=== PATIENT | male | born 1960 | race Caucasian/White ===

== ENCOUNTER 2019-08-15 15:44 | Outpatient (CLI) | payer OTHER, SELFPAY ==
[2019-08-15 16:23] LABS: Blood Urea Nitrogen 11 mg/dL (9-20); Calcium 8.9 mg/dL (8.4-10.2); Carbon Dioxide 35 mmol/L (22-30); Chloride 94 mmol/L (98-107); Estimated Glomerular Filt Rate > 60; Glucose 174 mg/dL (75-110); Potassium 3.6 mmol/L (3.4-5.0); Sodium 136 mmol/L (137-145)
== END 2019-08-15 15:45 | disposition home or self-care (01) ==
LOC: ANHLAB 15:46
PROVIDERS: PCP Family Medicine Adolescent Medicine; Visit Provider Nurse Practitioner Adult Health
DX: I51.9 Heart disease, unspecified (principal)
CPT/HCPCS: 36415; 80048

== ENCOUNTER 2020-02-13 10:36 | Outpatient (CLI) | payer OTHER, SELFPAY ==
[2020-02-13 11:06] LABS: Basophils Percent Auto 0.4 % (0.2-1.2); Eosinophils Absolute Auto 0.1 K/mm3 (0-0.3); Hematocrit 40.7 % (42.0-52.0); Hemoglobin 14.7 g/dL (14.0-18.0); Immature Granulocyte Absolute 0.02 K/mm3 (0.00-0.031); Immature Granulocyte Percent A 0.3 % (0-0.5); Lymphocytes Absolute Auto 1.35 K/mm3 (0.9-3.2); Lymphocytes Percent Auto 19.3 % (18.3-44.2); Mean Corpuscular HGB Conc 36.1 g/dl (32-36); Mean Corpuscular Hemoglobin 42.2 pg (26-34); Mean Platelet Volume 10.4 fl (7.4-10.4); Monocytes Absolute Auto 0.4 K/mm3 (0.1-0.6); Monocytes Percent Auto 5.7 % (2.6-8.5); Neutrophils Absolute Auto 5.1 K/mm3 (1.3-6.7); Neutrophils Percent Auto 73.3 % (45.5-73.1); Platelet Count Result 141 k/mm3 (150-375); Red Blood Count 3.48 M/mm3 (4.6-6.20); Red Cell Distribution Width 16.2 % (11.5-14.5)
[2020-02-13 11:29] LABS: Alanine Aminotransferase 18 U/L (4-50); Albumin Level 3.6 g/dL (3.5-5.1); Alkaline Phosphatase 99 U/L (38-126); Anion Gap 3.99999 mmol/L (8-16); Aspartate Amino Transferase 37 U/L (17-59); Bilirubin,Total 1.3 mg/dL (0.2-1.3); Blood Urea Nitrogen 24 mg/dL (9-20); Calcium 8.9 mg/dL (8.4-10.2); Carbon Dioxide > 40 mmol/L (22-30); Chloride 90 mmol/L (98-107); Cholesterol 124 mg/dL (0-200); Estimated Glomerular Filt Rate 48; Glucose 116 mg/dL (75-110); HDL Direct 43 mg/dL; Potassium 3.6 mmol/L (3.4-5.0); Sodium 134 mmol/L (137-145); Triglycerides 98 mg/dL (<150)
[2020-02-13 11:33] LABS: LDL Cholesterol Direct 58 mg/dL
== END 2020-02-13 10:37 | disposition home or self-care (01) ==
LOC: ANHLAB 10:39
PROVIDERS: PCP Family Medicine Adolescent Medicine; Visit Provider Internal Medicine Cardiovascular Disease
DX: I27.20 Pulmonary hypertension, unspecified (principal); G47.33 Obstructive sleep apnea (adult) (pediatric); Z79.01 Long term (current) use of anticoagulants; Z86.711 Personal history of pulmonary embolism; Z72.89 Other problems related to lifestyle; Z72.0 Tobacco use
CPT/HCPCS: 36415; 80053; 80061; 85025

== ENCOUNTER 2020-02-13 10:59 | Inpatient (IN) | payer OTHER, SELFPAY ==
[2020-02-13] VITALS (11 sets, daily range): BP systolic 90–114; BP diastolic 60–81; PULSE 62–85; RESP 11–22; TEMP 36.1–37; O2SAT 94–100
--- NOTE | ~2020-02-13 | US_ITS ---
US abdomen complete EXAMINATION: US Abdomen Complete INDICATION: Weight loss and nausea PROCEDURE: Realtime High Resolution abdomen ultrasound. COMPARISON: No prior studies for comparison FINDINGS: Gallbladder contains a 5 mm polyp. No definite stones, gallbladder wall thickening or peric holecystic fluid. Common bile duct measures 4 mm. Liver echotexture within normal limits without focal mass. Pancreas not adequately visualized due to bowel gas. Pancreatic tail is obscured by bowel gas. Spleen is unremarkeable. Renal echotexture is within normal limits bilaterally without hydronephrosis, contour deforming mass or renal stone. Right kidney measures 9.6 cm. Left kidney measures 10.5 cm. Visualized aspects of the aorta and IVC are within normal limits. Portal vein is patent. No sonograph ic Lacy's sign indicated by the technologist. IMPRESSION: 1: Gallbladder polyp measuring 5 mm. Reviewed, dictated and finalized at location B.
--- NOTE | ~2020-02-13 | MR_ITS ---
EXAMINATION: MR abdomen wo/w con INDICATION: Weight loss, macrocytosis, concern for hepatocellular carcinoma TECHNIQUE: Coronal SSFSE ARC, WATER:coronal LAVA-FLEX, Coronal 2D FIESTA FatSat, Axial SSFSE BH ARC, Axial 3D DualEcho BH, Axial SSFSE-IR, Axial DWI b=500, Axial 2D FIESTA FatSat, pre and dynamic postco ntrast Axial LAVA ARC, postcontrast Coronal In and Opposed phase LAVA FLEX COMPARISON: CT, 02/15/2020 CONTRAST: Multihance, 18 cc FINDINGS: No suspicious liver lesion is identified. The pancreas and adrenal glands are normal. Stone s are present in the nondistended gallbladder. The kidneys are unremarkable. Multiple subtle T2 hyper intense lesions of the spleen likely reflect granulomatous disease. There are no pathologically enlar ged abdominal lymph nodes. No dilated loops of bowel are evident. There is a large volume of colonic stool. S-shaped curvature of the spine is noted. No abnormal enhancement is present after contrast ad ministration. IMPRESSION: 1. No suspicious liver lesion identified. Reviewed, dictated and finalized at location A.
--- NOTE | ~2020-02-13 | CT_ITS ---
EXAMINATION: CT abdomen pelvis w con DATE: 02/15/2020 14:39 INDICATION: Weight loss. Macrocytosis. TECHNIQUE: Computed tomography (CT) of the abdomen and pelvis was performed with 100 mL Omnipaque 350 intravenous contrast. Automated exposure control and iterative reconstruction technique were employe d. The dose-length product was 876.88 mGy-cm. COMPARISON: Chest CT 01/22/2019, ultrasound 02/14/2020 FINDINGS: The visualized portions of the lung bases demonstrate mild atelectasis. There is mild emphy sema. No pleural effusion. The heart size is normal. No pericardial effusion. The liver is normal. Th e gallbladder is normal in size and contains sludge. There are numerous low-attenuation lesions in th e spleen measuring up to 11 mm. The pancreas and adrenal glands are normal. There is cortical thinnin g of the kidneys. The bladder is distended. There are no dilated loops of bowel. There is a moderate volume of stool in the colon. The appendix is normal. There is mild periportal lymphadenopathy, likel y reactive. There is no free intraperitoneal fluid. There are multiple old healed right rib fractures . There is lumbar levoscoliosis and severe spondylosis. Thoracic dextroscoliosis is noted. IMPRESSION: 1. Numerous splenic lesions measuring up to 11 mm, most likely granulomatous disease. 2. Mild periportal lymphadenopathy, likely reactive. Reviewed, dictated and finalized at location A. IMPRESSION: 1. Numerous splenic lesions measuring up to 11 mm, most likely granulomatous di sease. 2. Mild periportal lymphadenopathy, likely reactive.
--- NOTE | ~2020-02-13 | XR_ITS ---
EXAMINATION: XR chest 2V EXAM DATE: 02/13/2020 12:08 INDICATION: Short of breath and weakness. TECHNIQUE: Frontal and lateral projections of the chest obtained and reviewed. Comparison is made to prior examination from 01/22/2019. FINDINGS: There is mild upper thoracic levoscoliosis, moderate lower thoracic dextroscoliosis. No co nfluent consolidation, pneumothorax or pleural effusion suspected. Cardiac silhouette is stable in si ze compared to prior exam. Old right rib fractures. There is no significant interval change. IMPRESSION: No acute cardiopulmonary findings. Reviewed, dictated and finalized at location A.
--- NOTE | ~2020-02-13 | XR_ITS ---
EXAMINATION: XR orbit foreign body DATE: 02/18/2020 14:04 INDICATION: Orbital foreign body. TECHNIQUE: 4 views of the orbits were obtained. COMPARISON: None. FINDINGS: Bone alignment is normal. No fracture. There is wire fixation of the right orbital floor an d lateral orbital wall. IMPRESSION: 1. Wire fixation of the right orbital floor and lateral orbital wall. Reviewed, dictated and finalized at location A.
--- NOTE | 2020-02-13 11:33 | ECG_ITS ---
Measurements Intervals [place] Rate: 78 P: 63 MS: 156 QRS: 52 QRSD: 86 T: 31 QT: 390 QTc: 445 Interpretive Statements SINUS RHYTHM VENTRICULAR PREMATURE COMPLEX INCOMPLETE RIGHT BUNDLE BRANCH BLOCK BORDERLINE ST-T WAVE ABNORMALITY- DIFFUSE LEADS BASELINE ARTIFACT- V4 BORDERLINE ECG Electronically Signed On 02-13-2020 12:09:01 CDT by Rickey Duong D.O.
--- NOTE | 2020-02-13 12:01 | PC.NURSE ---
unable to obtain IV access, called vascular access - will come to ED to assist.
--- NOTE | 2020-02-13 12:02 | PC.NURSE ---
Pt to XRAY via stretcher.
[2020-02-13 12:07] LABS: Basophils Percent Auto 0.5 % (0.2-1.2); Eosinophils Absolute Auto 0.1 K/mm3 (0-0.3); Eosinophils Percent Auto 1.1 % (0-4.4); Hematocrit 39.8 % (42.0-52.0); Hemoglobin 14.4 g/dL (14.0-18.0); Immature Granulocyte Absolute 0.03 K/mm3 (0.00-0.031); Immature Granulocyte Percent A 0.4 % (0-0.5); Lymphocytes Absolute Auto 1.44 K/mm3 (0.9-3.2); Lymphocytes Percent Auto 19.6 % (18.3-44.2); Mean Corpuscular HGB Conc 36.2 g/dl (32-36); Mean Corpuscular Hemoglobin 41.7 pg (26-34); Mean Corpuscular Volume 115.4 fl (80-100); Mean Platelet Volume 10.1 fl (7.4-10.4); Monocytes Absolute Auto 0.5 K/mm3 (0.1-0.6); Monocytes Percent Auto 6.4 % (2.6-8.5); Neutrophils Absolute Auto 5.3 K/mm3 (1.3-6.7); Platelet Count Result 144 k/mm3 (150-375); Red Blood Count 3.45 M/mm3 (4.6-6.20); Red Cell Distribution Width 16.2 % (11.5-14.5); White Blood Count 7.4 K/mm3 (4.5-10.0)
--- NOTE | 2020-02-13 12:16 | PC.NURSE ---
Pt unable to provide urine sample at this time, pt given urinal and will re attempt.
[2020-02-13 12:18] LABS: Alanine Aminotransferase 18 U/L (4-50); Albumin Level 3.8 g/dL (3.5-5.1); Alkaline Phosphatase 108 U/L (38-126); Anion Gap 6 mmol/L (8-16); Aspartate Amino Transferase 37 U/L (17-59); Bilirubin,Total 1.4 mg/dL (0.2-1.3); Blood Urea Nitrogen 23 mg/dL (9-20); Calcium 9.1 mg/dL (8.4-10.2); Carbon Dioxide 39 mmol/L (22-30); Chloride 90 mmol/L (98-107); Estimated CRCL calculation 42 ml/min; Estimated Glomerular Filt Rate 44; Glucose 117 mg/dL (75-110); Potassium 3.1 mmol/L (3.4-5.0); Sodium 135 mmol/L (137-145)
[2020-02-13 12:24] LABS: Lipase 97 U/L (23-300)
[2020-02-13 12:37] LABS: Troponin I 0.019 ng/mL (0.000-0.034)
--- NOTE | 2020-02-13 12:49 | PC.NURSE ---
Pt unable to urinate, declines straight cath at this time.
[2020-02-13] MEDS: SODIUM CHLORIDE 0.9% IV 1,000 ML 999 ML IV CONT (12:58)
--- NOTE | 2020-02-13 13:20 | ED.GENADULT ---
HPI - General Adult General Chief complaint: Weakness Stated complaint: short of breath on exertion Time Seen by Provider: 02/13/20 12:03 History of Present Illness HPI narrative: Patient is a 59-year-old male who is referred to the ER from the cardiology clinic for weakness. Patient reports progressive decline over the last couple months where when he ambulates he begins to throw up. Denies chest pain or pressure. He is unsure as to why he goes to [facility] and does not think he has had a heart attack before nor does he think he has heart failure. He does report taking water pill though he is unsure what he is actually taking. Reports a 20 to 30 pound weight loss over the last couple months. Today he reports he cannot walk more than 20 feet without extreme exhaustion and vomiting. Symptoms are only helped by sitting. Related Data Home Medications Medication Instructions Recorded Confirmed furosemide 40 mg PO DAILY 02/13/20 02/13/20 methadone 10 mg PO DAILY 02/13/20 02/13/20 metoprolol succinate 25 mg PO DAILY 02/13/20 02/13/20 morphine 30 mg PO BID-TID PRN 02/13/20 02/13/20 pantoprazole 40 mg PO DAILY 02/13/20 02/13/20 potassium chloride 20 meq PO DAILY 02/13/20 02/13/20 rivaroxaban [Xarelto] 10 mg PO DAILY 02/13/20 02/13/20 Allergies Allergy/AdvReac Type Severity Reaction Status Date / Time No Known Allergies Allergy Mild Verified 02/13/20 12:45 Review of Systems Review of Systems: All systems reviewed & are unremarkable except as noted in HPI and below Constitutional: Constitutional: Denies chills, Reports fatigue, Denies fever(s) and Reports weakness ENT: Denies nasal congestion and Denies sore throat Cardiovascular: Cardiovascular: Denies chest pain, Denies rapid heart rate and Denies radiating jaw, neck or arm pain Respiratory: Respiratory: Denies cough, Denies dyspnea and Denies wheezing Gastrointestinal: Gastrointestinal: Denies abdominal pain, Denies diarrhea, Reports nausea and Reports vomiting Neurologic: Denies dizziness, Denies syncope, Denies focal weakness and Denies numbness PMF Past Medical History Medical History (Updated 02/13/20 @ 22:59 by Bernabe Garcia MD) Angiomatosis Benign colon polyp Chronic back pain On long-term opioid therapy. Current use of intermediate anticoagulation Gastroesophageal reflux disease Left leg DVT (~12/2018) Non-STEMI (non-ST elevated myocardial infarction) (~12/2018) Related to submassive pulmonary embolism. Paroxysmal atrial flutter Pulmonary embolism Pulmonary embolism with acute cor pulmonale (~12/2018) Scoliosis Surgical History Surgical History (Updated 02/13/20 @ 19:53 by Sparkle Lares PA-C) History of colonoscopy History of facial surgery Right orbit repair. History of orthopedic surgery Surgical fixation left tib-fib, right foot surgery. Family History Family History Father Heart disease age 68 of heart disease Mother Dementia age 94, had dementia Unknown Heart disease family history of heart disease, kidney disease, and possible pulmonary emboli Social History Social History (Updated 02/13/20 @ 19:55 by Sparkle Lares PA-C) Social History: The patient is single and lives in his own trailer in [place]. He has no children. He is retired, on disability, and used to work in maintenance. He smokes about half a pack of cigarettes per day. At 1 point time he drank 3D 8 alcoholic beverages a day, but for the last several months he has not been drinking much due to feeling poorly. He denies illicit substance use. He designates his friend, Aryan Yañez, as his surrogate decision maker and he wishes to be a full code. Smoking packs per day: 0.75 Smoking cigarettes per day: 15.0 Smoking status: Current every day smoker Tobacco type: cigarettes Alcohol intake: current Drinks per week: 21 Gallegos
[2020-02-13 13:38] LABS: Add Urine Microscopic? YES; Appearance Urine Clear (Clear); Bacteria Urine Trace /hpf; Bilirubin Urine 1+ (Negative); Blood Urine Negative (Negative); Color Urine Amber (Yellow); Glucose Urine UA Negative (Negative); Hyaline Casts Urine 50+ /lpf; Ketones Urine Negative (Negative); Leukocyte Esterase Ur Trace LEU/UL (Negative); Mucus Urine Rare /lpf; Nitrate Urine Negative (Negative); Protein Urine Negative (Negative); RBC Urine 0-2 /hpf (0-2); Specific Grav Ur 1.013 (1.001-1.035); Squamous Epithelial Cell Urine Occasional /hpf (Few)
--- NOTE | 2020-02-13 15:44 | WPDCN ---
Assessment and Plan Assessment and plan (1) Hypotension: Code(s): I95.9 - Hypotension, unspecified Status: Acute Assessment and Plan: BP 90/60 earlier today, likely 2nd nausea and anorexia, dehydration. Hold diuretic. Start IV fluids. (2) Nausea: Code(s): R11.0 - Nausea Status: Acute Assessment and Plan: May be related to the low blood pressure. However the patient has had a 20-30 lb weight loss over the past 4 months so he may have other issues (3) Weight loss: Code(s): R63.4 - Abnormal weight loss Status: Acute Assessment and Plan: 20-30 lb weight loss noted. (4) Abnormal EKG: Code(s): R94.31 - Abnormal electrocardiogram [ECG] [EKG] Status: Acute Assessment and Plan: Some slight ST depression noted anterolaterally. However, this is non-specific and may relate to his right ventricular strain. Slightly elevated troponin of 0.019. However, doubt ACS. (5) Macrocytosis: Code(s): D75.89 - Other specified diseases of blood and blood-forming organs Status: Acute Assessment and Plan: Macrocytic indices, perhaps some liver disease related to his alcohol use or perhaps B12 or folate deficiency. Check B12 and folate levels (6) Acute kidney failure: Code(s): N17.9 - Acute kidney failure, unspecified Status: Acute Assessment and Plan: elevated BUN and creatinine noted. IV fluids. (7) Hypokalemia: Code(s): E87.6 - Hypokalemia Status: Acute Assessment and Plan: Potassium 3.1 and 3.6 today. Will add some potassium to the IV fluids in as with the patient's nausea he may not tolerate p.o.. (8) History of pulmonary embolism: Code(s): Z86.711 - Personal history of pulmonary embolism Status: Acute Assessment and Plan: History of multiple PEs in December 2018, on chronic therapy with Xarelto. Stable. (9) History of atrial flutter: Code(s): Z86.79 - Personal history of other diseases of the circulatory system Status: Acute Assessment and Plan: History of atrial flutter noted in December 2018. Currently in normal sinus rhythm HPI Data of Consult Date/Time: 02/13/20 15:44 Primary Care Provider: Dougie Galaviz MD Consult Narrative Narrative: Date of service: 02/13/2020 Shantanu Melendrez is a 59 year old male Was asked to see at the request of the hospitalist for my advice and opinion regarding his ANDERSON and weakness. The patient Is a vague in tired historian. He has not felt well for a while, perhaps a few months, with weakness, will a 20-30 lb weight loss (209# 4 months ago, 182# today), ANDERSON, poor appetite and nausea. The patient saw Dr. Fonseca in the office today complaining of weakness and presyncope. his blood pressure was 90/54 mmHg.He was to directed to the emergency room and subsequently admitted. The patient says he has sick. When he stands he gets nauseated and dizzy and he has not been able to Stand long enough to shave. He can't walk far because he feels terrible and sick. When he walked 20 ft to the car today he felt terrible with dizziness, lightheadedness, nausea, shortness of breath and he threw up. He has been having lot of nausea and dry heaves as well as anorexia. He had 1 fall a couple months ago and did hit his head with apparently no neurologic sequelae. No PND, orthopnea, chest pain, pressure or tightness, abdominal pain, diarrhea, or bleeding. He does have some chronic ANDERSON but that does not seem to be a big p
--- NOTE | 2020-02-13 16:00 | PM.IMHP ---
H&P: HPI History of Present Illness Date/Time: 02/13/20 16:00. The patient was seen evaluated in the emergency department. Chief complaint: Weakness. Narrative: Shantanu Melendrez is a 59-year-old male smoker with history of submassive pulmonary embolism in December 2018, paroxysmal atrial flutter, GERD, and chronic pain syndrome who presented to the emergency department earlier today for further evaluation of weakness. He had a routine appointment with Dr. Fonseca today and he was directed to the emergency department after the patient complained about significant weakness and exhaustion with minimal ambulation. With further questioning, he admits that a really has not felt well for a couple of months with vague symptoms including poor appetite, unintentional weight loss of nearly 30 lb, progressive weakness, exhaustion with minimal activity, and mild dyspnea on exertion. This morning while walking to his truck he became very nauseated with dry heaves and at that time felt a bit lightheaded. He denies loss of smell and taste, and tells me food just does not sound appealing. With further questioning, he has had some dysphagia with liquids but he denies concerns for aspiration. He has not noticed a change in bowel habits, but has suffered from constipation for many years and he says it is not unusual for him to not have a bowel movement for 1 to 2 weeks. He does have a history of colon polyps but has not had a colonoscopy for several years. He denies blood in mucus in the stool. No lymphadenopathy. No known history of malignancy. He denies exertional chest pain and pleuritic pain. No orthopnea or PND. Review of Systems Review of Systems: Narrative: Twelve systems were reviewed with pertinent positives and negatives as per HPI. No fever, chills, or sweats. He denies cold and flu symptoms. No cough. He has been having hiccups recently, more so than usual. No dysuria or hematuria. Noted change in medication. He denies sick contacts. Except as documented, all other systems were reviewed and are negative. COUNTS INCLUDE 234 BEDS AT THE [facility] Past Medical History Medical History (Updated 02/13/20 @ 20:01 by Sparkle Lares PA-C) Angiomatosis Benign colon polyp Chronic back pain On long-term opioid therapy. Current use of detention anticoagulation Gastroesophageal reflux disease Left leg DVT (~12/2018) Non-STEMI (non-ST elevated myocardial infarction) (~12/2018) Related to submassive pulmonary embolism. Paroxysmal atrial flutter Pulmonary embolism Pulmonary embolism with acute cor pulmonale (~12/2018) Scoliosis Surgical History Surgical History (Updated 02/13/20 @ 19:53 by Sparkle Lares PA-C) History of colonoscopy History of facial surgery Right orbit repair. History of orthopedic surgery Surgical fixation left tib-fib, right foot surgery. Family History Family History Father Heart disease age 68 of heart disease Mother Dementia age 94, had dementia Unknown Heart disease family history of heart disease, kidney disease, and possible pulmonary emboli Social History Social History (Updated 02/13/20 @ 19:55 by Sparkle Lares PA-C) Social History: The patient is single and lives in his own trailer in [place]. He has no children. He is retired, on disability, and used to work in maintenance. He smokes about half a pack of cigarettes per day. At 1 point time he drank 3D 8 alcoholic beverages a day, but for the last several months he has not been drinking much due to feeling poorly. He denies illicit substance use. He designates his friend, Aryan Yañez, as his surrogate decision maker and he wishes to be a full code. Smoking packs per day: 0.75 Smoking cigarettes per day: 15.0 Smoking status: Current every day smoker Tobacco type: cigarettes Gender identity (if verbalized by the patient): Male Meds Home Medications an
--- NOTE | 2020-02-13 16:42 | PC.NURSE ---
called Angi in dietary and ordered food/dinner tray for pt
[2020-02-13] MEDS: KCL 20 MEQ/D5/0.45% SOD CHL 1,000 ML 125 ML IV CONT (18:32)
[2020-02-13 18:59] LABS: Troponin I 0.016 ng/mL (0.000-0.034)
--- NOTE | 2020-02-13 20:44 | ADMGEN ---
This patient, Shantanu Melendrez, was admitted to IMU Room 211-01 at 1952. Patient/family oriented to hospital policies and general routines including ID bracelet, bed and alarms, visiting hours, pain management, procedures, bathroom and other care routines, personal items, smoking policy, room service/diet, and visiting hours. Valuables list has been completed. Information on how to activate the Rapid Response Team has been discussed. Patient/Family are encouraged to report perceived risks to care and to ask questions if they do not understand what they are told or what they should do.
[2020-02-13 20:47] LABS: Creatine Kinase 33 U/L (55-170)
[2020-02-13 20:49] LABS: Anion Gap 3 mmol/L (8-16); Blood Urea Nitrogen 21 mg/dL (9-20); Calcium 8.4 mg/dL (8.4-10.2); Carbon Dioxide 39 mmol/L (22-30); Chloride 92 mmol/L (98-107); Estimated CRCL calculation 48 ml/min; Estimated Glomerular Filt Rate 52; Glucose 109 mg/dL (75-110); Magnesium 1.5 mg/dL (1.6-2.3); Phosphorus 3.2 mg/dL (2.5-4.5); Potassium 2.9 mmol/L (3.4-5.0); Sodium 134 mmol/L (137-145)
[2020-02-13 21:01] LABS: Troponin I 0.016 ng/mL (0.000-0.034)
[2020-02-13 21:55] LABS: Folic Acid 3.3 ng/mL (2.76->20)
[2020-02-14] VITALS (18 sets, daily range): BP systolic 84–114; BP diastolic 57–75; PULSE 55–72; RESP 14–22; TEMP 35.6–36.7; O2SAT 90–100
[2020-02-14] MEDS: KCL 20 MEQ/D5/0.45% SOD CHL 1,000 ML 125 ML IV CONT ×3 (02:45→21:37)
[2020-02-14 04:55] LABS: Potassium 2.9 mmol/L (3.4-5.0)
[2020-02-14 05:00] LABS: Alanine Aminotransferase 14 U/L (4-50); Albumin Level 2.7 g/dL (3.5-5.1); Alkaline Phosphatase 69 U/L (38-126); Anion Gap 2 mmol/L (8-16); Aspartate Amino Transferase 27 U/L (17-59); Bilirubin,Total 0.9 mg/dL (0.2-1.3); Blood Urea Nitrogen 20 mg/dL (9-20); Calcium 8.3 mg/dL (8.4-10.2); Carbon Dioxide 38 mmol/L (22-30); Chloride 95 mmol/L (98-107); Estimated CRCL calculation 55 ml/min; Estimated Glomerular Filt Rate > 60; Glucose 90 mg/dL (75-110); Sodium 135 mmol/L (137-145)
[2020-02-14 08:56] LABS: Hematocrit 30.9 % (42.0-52.0); Hemoglobin 11.2 g/dL (14.0-18.0); Mean Corpuscular HGB Conc 36.2 g/dl (32-36); Mean Corpuscular Hemoglobin 42.9 pg (26-34); Mean Corpuscular Volume 118.4 fl (80-100); Mean Platelet Volume 9.9 fl (7.4-10.4); Platelet Count Result 120 k/mm3 (150-375); Red Blood Count 2.61 M/mm3 (4.6-6.20); White Blood Count 4.3 K/mm3 (4.5-10.0)
--- NOTE | 2020-02-14 09:09 | PM.PNCARD ---
Progress Note: A&P Assessment and Plan (1) Hypotension: Code(s): I95.9 - Hypotension, unspecified Status: Acute Assessment and Plan: Likely 2nd nausea, anorexia, dehydration. Hold diuretic. Continue IV fluids. (2) Nausea: Code(s): R11.0 - Nausea Status: Acute Assessment and Plan: May be related to the low blood pressure. He has had a 20-30 lb weight loss over the past 4 months so he may have other issues. Seen by Dr. Luke. EGD planned for today. (3) Weight loss: Code(s): R63.4 - Abnormal weight loss Status: Acute Assessment and Plan: 20-30 lb weight loss noted. (4) Abnormal EKG: Code(s): R94.31 - Abnormal electrocardiogram [ECG] [EKG] Status: Acute Assessment and Plan: Some slight ST depression noted anterolaterally. However, this is non-specific and may relate to his right ventricular strain. Troponin 0.019, 0.016, 0.016. No evidence of ACS. No ischemic symptoms. (5) Macrocytosis: Code(s): D75.89 - Other specified diseases of blood and blood-forming organs Status: Acute Assessment and Plan: Macrocytic indices, perhaps some liver disease related to his alcohol use or perhaps B12 or folate deficiency. B12 and folate levels are within normal limits. (6) Acute kidney failure: Code(s): N17.9 - Acute kidney failure, unspecified Status: Acute Assessment and Plan: elevated BUN and creatinine noted. Continue IV fluids. (7) Hypokalemia: Code(s): E87.6 - Hypokalemia Status: Acute Assessment and Plan: IV fluids with 20 mEq of potassium at 125 cc/hour. Potassium 2.9 this morning. Will give him a 40 mEq potassium rider. Magnesium 1.5. Will give 3 g of Magnesium as well. (8) History of pulmonary embolism: Code(s): Z86.711 - Personal history of pulmonary embolism Status: Acute Assessment and Plan: History of multiple PEs in December 2018, on chronic therapy with Xarelto. Stable. Restart Xarelto this evening. Did not get a dose yesterday evening. (9) History of atrial flutter: Code(s): Z86.79 - Personal history of other diseases of the circulatory system Status: Acute Assessment and Plan: History of atrial flutter noted in December 2018. Currently in normal sinus rhythm Additional Plan No further cardiac recommendations. Will follow-up p.r.n.. Plan discussed with Dr. Castro 0920 02/14/2020 Subjective Date/time seen: 02/14/20 09:09 Interval history: Follow-up for: Hypotension, nausea, weight, abnormal EKG, PANDA, hypokalemia, hypomagnesemia, history of atrial flutter, history of pulmonary embolus Date of service: 02/14/2020 Subjective: Denied chest discomfort, shortness of breath or lightheadedness. No abdominal pain or vomiting. No nausea at this time. Review of Systems Constitutional: Constitutional: Reports difficulty sleeping, Reports fatigue, Reports lethargy and Reports weakness Eyes: Eyes: Denies blurry vision ENT: Denies dysphagia, Denies epistaxis and Denies nasal congestion Cardiovascular: Cardiovascular: Denies chest pain, Denies leg edema ( Resolved), Denies palpitations and Reports dyspnea on exertion Respiratory: Respiratory: Denies hemoptysis, Reports dyspnea on exertion and Reports wheezing ( occasional wheezes) Gastrointestinal: Gastrointestinal: Denies abdominal pain, Denies melena, Denies hematochezia, Denies dysphagia, Denies diarrhea, Reports nausea ( With any movement) and Denies vomiting Gen
[2020-02-14] MEDS: MAGNESIUM SULFATE 3GM/D5W100ML 3 GM/100 ML BAG IVPB (09:33)
--- NOTE | 2020-02-14 11:33 | WPDGICN ---
Assessment and Plan Assessment and plan (1) Nausea: Code(s): R11.0 - Nausea Status: Acute Assessment and Plan: nausea with weight loss. Will assess today with EGD, assess if malignancy, ulcers, etc. Also noted low platelets and macrocytosis, I wonder if he could have liver disease given alcohol intake. (2) Weight loss: Code(s): R63.4 - Abnormal weight loss Status: Acute Assessment and Plan: will do EGD, at some point will need abdominal imaging and also colonoscopy specially if egd no major findings. (3) Hypotension: Code(s): I95.9 - Hypotension, unspecified Status: Acute Assessment and Plan: he had dehydration due to poor intake (4) Hypokalemia: Code(s): E87.6 - Hypokalemia Status: Acute Assessment and Plan: treated (5) History of pulmonary embolism: Code(s): Z86.711 - Personal history of pulmonary embolism Status: Acute Assessment and Plan: on blood thinners (6) Thrombocytopenia: Code(s): D69.6 - Thrombocytopenia, unspecified Status: Acute Assessment and Plan: I wonder if he may have liver disease even cirrhosis, also macrocytosis will get liver ultrasound but also may need CT abd/pelvis because weight loss to assess pancrease, liver, etc (7) Macrocytic anemia: Code(s): D53.9 - Nutritional anemia, unspecified Status: Acute (8) Alcohol abuse: Code(s): F10.10 - Alcohol abuse, uncomplicated Status: Acute Assessment and Plan: thiamine, monitor GI Consult Note Consult date/time: 02/14/20 11:33 Reason for consult: weight loss, n/v HPI: Shantanu Melendrez is a 59 year old male with history of submassive pulmonary embolism in December 2018 on xarelto, paroxysmal atrial flutter, GERD, and chronic pain syndrome on methadone and morphine prn who came to see his borematic operator in the office but he mentioned that for few weeks has been not eating much because nausea and dry heaves, sometimes with vomiting, he also has lost about 30 pounds and just feeling weak. His doctor instructed him to come to hospital and he was admitted. He had a colonoscopy about 10 years ago, no EGD. When he was evaluated by his borematic operator his blood pressure was 90/54 mmHg. Hb 11.2 (14 previously), platelets 120 (previously also low), albumin 2.7, transaminases normal. He also has history of drinking up to 8 daily but last few months not much because feeling poorly. He also has chronic constipation but using narcotics. Review of Systems Constitutional: Constitutional: Reports fatigue, Reports lethargy, Reports poor appetite and Reports weight loss Eyes: Eyes: Denies blurry vision ENT: Reports Normal hearing present, Denies headache(s) and Denies neck pain Cardiovascular: Cardiovascular: Denies chest pain and Denies dyspnea Respiratory: Respiratory: Denies dyspnea Gastrointestinal: Gastrointestinal: Reports constipation, Reports nausea and Reports vomiting Genitourinary: Genitourinary: Denies dysuria Musculoskeletal: Musculoskeletal: Denies neck pain Integumentary/Breasts: Skin/Breast: Denies dry skin Neurologic: Reports Normal hearing present, Denies headache(s) and Denies weakness Psychiatric: Psychiatric: Denies anxiety Endocrine: Endocrine: Denies change in body appearance Hematologic/Lymphatic: Comments: on blood thinners Allergic/Immunologic: Allergic/Immunologic: Denies urticaria PMFSH Past Medical History Medical History (Updated 02/14/20 @ 12:21 by Ad Luke MD) Alcohol abuse Angiomatosis Benign colon polyp Chronic back pain On long-term opioid therapy. Current use of [facility] anticoagulation Gastroesophageal reflux disease Left leg DVT (~12/2018) Macrocytic anemia Non-STEMI (non-ST elevated myocardial infarction) (~12/2018) Related to submassive pulmonary embolism. Paroxysmal atrial flutter Pulmonary embolism Pulmonary embolism with acute cor pulmonale (~12/2018
[2020-02-14] MEDS: LACTATED RINGERS 1,000 ML 150 ML IV CONT (11:50)
--- NOTE | 2020-02-14 11:51 | WPDANESEPPF ---
Anes - Initial Pre Proc Eval Procedure: Operation Date: 02/14/20 12:00 Proposed Procedures p Esophagogastroduodenoscopy - Ad Luke MD Date/Time: 02/14/20 11:51 Surgeon: Kavon Alvarado MD Pre Op Diagnosis: Weakness. Patient Data Age: 59 Gender: M Height: 5 ft 7 in Weight: 83.5 kg Last Vital Signs Temp 96.8 F L 02/14/20 11:49 Pulse 57 L 02/14/20 11:49 Resp 18 02/14/20 11:49 BP 114/75 02/14/20 11:49 Pulse Ox 97 02/14/20 11:49 Allergies Allergy/AdvReac Type Severity Reaction Status Date / Time No Known Allergies Allergy Mild Verified 02/13/20 12:45 Home Medications Medication Instructions Recorded Confirmed Type furosemide 40 mg PO DAILY 02/13/20 02/13/20 History methadone 10 mg PO DAILY 02/13/20 02/13/20 History metoprolol succinate 25 mg PO DAILY 02/13/20 02/13/20 History morphine 30 mg PO BID-TID PRN 02/13/20 02/13/20 History pantoprazole 40 mg PO DAILY 02/13/20 02/13/20 History potassium chloride 20 meq PO DAILY 02/13/20 02/13/20 History rivaroxaban [Xarelto] 10 mg PO DAILY 02/13/20 02/13/20 History Laboratory Tests 02/13/20 02/13/20 02/13/20 10:46 11:57 11:57 WBC 7.4 K/mm3 K/mm3 (4.5-10.0) RBC 3.45 M/mm3 L M/mm3 (4.6-6.20) Hgb 14.4 g/dL g/dL (14.0-18.0) Hct 39.8 % L % (42.0-52.0) MCV 115.4 fl H fl (80-100) MCH 41.7 pg H pg (26-34) MCHC 36.2 g/dl H g/dl (32-36) RDW 16.2 % H % (11.5-14.5) Plt Count 144 k/mm3 L k/mm3 (150-375) MPV 10.1 fl fl (7.4-10.4) Immature Gran % (Auto) 0.4 % % (0-0.5) Neut % (Auto) 72.0 % % (45.5-73.1) Lymph % (Auto) 19.6 % % (18.3-44.2) [place] % (Auto) 6.4 % % (2.6-8.5) Eos % (Auto) 1.1 % % (0-4.4) Baso % (Auto) 0.5 % % (0.2-1.2) Lymph # (Auto) 1.44 K/mm3 K/mm3 (0.9-3.2) [place] # (Auto) 0.5 K/mm3 K/mm3 (0.1-0.6) Eos # (Auto) 0.1 K/mm3 K/mm3 (0-0.3) Baso # (Auto) 0.0 K/mm3 K/mm3 (0.0-0.1) Abs Immat Gran (auto) 0.03 K/mm3 K/mm3 (0.00-0.031) Absolute Neuts (auto) 5.3 K/mm3 K/mm3 (1.3-6.7) Absolute Nucleated RBC 0.0 K/mm3 K/mm3 (0.0-0.012) Nucleated RBC % 0.0 % % (0.0-0.2) % Immature Plt Fraction Sodium 135 mmol/L L mmol/L (137-145) Potassium 3.1 mmol/L L mmol/L (3.4-5.0) Chloride 90 mmol/L L mmol/L (98-107) Carbon Dioxide 39 mmol/L H mmol/L (22-30) Anion Gap 6 mmol/L L mmol/L (8-16) BUN 23 mg/dL H mg/dL (9-20) Creatinine 1.60 mg/dL H mg/dL (0.7-1.3) Estim Creat Clear Calc 42 ml/min ml/min Estimated GFR 44 L (59 - ) Glucose 117 mg/dL H mg/dL (75-110) Calcium 9.1 mg/dL mg/dL (8.4-10.2) Phosphorus Magnesium Total Bilirubin 1.4 mg/dL H mg/dL (0.2-1.3) Direct Bilirubin AST 37 U/L U/L (17-59) ALT 18 U/L U/L (4-50) Alkaline Phosphatase 108 U/L U/L (38-126) Total Creatine Kinase Troponin I 0.019 ng/mL ng/mL (0.000-0.034) Total Protein 7.0 g/dL g/dL (6.3-8.2) Albumin 3.8 g/dL g/dL (3.5-5.1) Lipase 97 U/L U/L (23-300) Vitamin B12 Folate TSH (Reflex) Urine Color Urine Appearance Urine pH Ur Specific [place] Urine Protein Urine Glucose (UA) Urine Ketones Ur Blood (Man) Urine Nitrate Urine Bilirubin Urine Urobilinogen Leukocyte Esterase Rfl Urine RBC Urine WBC Ur Squamous Epith Cells Urine Bacteria Hyaline Casts Urine Mucus 01/27
[2020-02-14] MEDS: THIAMINE HCL 100 MG TABLET PO (16:20)
[2020-02-14] MEDS: RIVAROXABAN 20 MG TABLET PO (17:51)
--- NOTE | 2020-02-14 19:40 | PM.IMPN ---
Progress Note: A&P Assessment and Plan (1) Acute kidney failure: Code(s): N17.9 - Acute kidney failure, unspecified Status: Acute Assessment and Plan: Presumably due to dehydration from poor oral intake, an ongoing issue for several months. Cr 1.6 on admissions and better with IV fluids. Abd US showing normal kidneys. Furosemide has been discontinued. Continue to follow. (2) Hypokalemia: Code(s): E87.6 - Hypokalemia Status: Acute Assessment and Plan: Potassium was 2.9 on admission and replaced but still low this morning. Replaced again. Repeat potassium level. (3) Macrocytosis: Code(s): D75.89 - Other specified diseases of blood and blood-forming organs Status: Acute Assessment and Plan: Noted on previous labs, but not to this extent. Thrombocytopenia is chronic as well. Could be a myelodysplastic etiology. Leukopenia is new. B12, folate and TSH normal. Has a history of daily alcohol use but no liver abnormalities by US. Check CT scan. If unrevealing, then will need BM biopsy possibly. Check LDH. (4) Weight loss: Code(s): R63.4 - Abnormal weight loss Status: Acute Assessment and Plan: History is concerning for possible malignancy with DVT/PE last year and unintentional weight loss. EGD showing gastritis. No obvious findings of concern except the sister ace kern nodule. CXR clear. Abd US showing no concerning findings. Check CT A/P. (5) Abnormal EKG: Code(s): R94.31 - Abnormal electrocardiogram [ECG] [EKG] Status: Acute Assessment and Plan: EKG showing ST-T wave changes mostly in the anterior leads. Trop negative x 3. Could be related to hypokalemia. Repeat EKG. (6) History of atrial flutter: Code(s): Z86.79 - Personal history of other diseases of the circulatory system Status: Acute Assessment and Plan: No recurrence on tele. Continue Xarelto. Metoprolol on hold due to soft BP. Resume when able. (7) History of pulmonary embolism: Code(s): Z86.711 - Personal history of pulmonary embolism Status: Acute Assessment and Plan: Hx of PE and DVT currently on correction AC. (8) Chronic back pain: Code(s): M54.9 - Dorsalgia, unspecified; G89.29 - Other chronic pain Status: Acute Assessment and Plan: Chronic. Continue [place] but hold on Morphine for now since this may be blunting his appetite. Subjective Date/time seen: 02/14/20 19:40 Interval history: Date of service: 02/13 59yo male with hx of CAD and VTE on snf AC here for n/v, weakness and weight loss. Patient states he has been having episodes of dizziness and n/v when ambulating. No CP or jaw pain or arm pain or upper back pain with this. He does have chronic low back pain. He has lost about 30# over the past 4 months. He denies early satiety but can only eat a few bites because no appetite. Had EGD today and tolerated this well. Exam Narrative: Exam Narrative: AF 97.0 104/65 71 14 97% ra Gen - NARD lying semi-recumbentin bed Chest - CTA bilaterally, nml RR CV - RRR S1/S2; Tele showing no significant dysrhythmias Abd - Soft, NT, mildly tympanitic, Positive BS Ext - No pedal edema; right foot congenital abnormality Neuro - Alert and oriented. Nonfocal exam. Psych - Nml mood and affect Skin - Warm and dry Lymph - no axillary, supraclav, anterior or posterior cervical or inguinal lymphadenopathy. Possibly periumbilical node enlargement Objective Data Vital Signs Vital Signs: Vital Signs - 24 hr 02/13/20 20:00 02/13/20 22:00 02/13/20 22:36 [place]
[2020-02-14 21:24] LABS: Lactate Dehydrogenase 404 U/L (313-618); Magnesium 2.1 mg/dL (1.6-2.3); Potassium 3.6 mmol/L (3.4-5.0)
[2020-02-14] MEDS: PANTOPRAZOLE 40 MG TABLET PO (21:37)
[2020-02-15] VITALS (8 sets, daily range): BP systolic 100–123; BP diastolic 71–85; PULSE 64–79; RESP 16–20; TEMP 36.1–36.9; O2SAT 72–98
[2020-02-15 04:56] LABS: Basophils Percent Auto 0.4 % (0.2-1.2); Eosinophils Absolute Auto 0.1 K/mm3 (0-0.3); Eosinophils Percent Auto 1.3 % (0-4.4); Hematocrit 33.8 % (42.0-52.0); Hemoglobin 11.9 g/dL (14.0-18.0); Immature Granulocyte Absolute 0.01 K/mm3 (0.00-0.031); Immature Granulocyte Percent A 0.2 % (0-0.5); Lymphocytes Absolute Auto 1.47 K/mm3 (0.9-3.2); Lymphocytes Percent Auto 32.6 % (18.3-44.2); Mean Corpuscular HGB Conc 35.2 g/dl (32-36); Mean Corpuscular Volume 119.4 fl (80-100); Mean Platelet Volume 10.1 fl (7.4-10.4); Monocytes Absolute Auto 0.2 K/mm3 (0.1-0.6); Monocytes Percent Auto 5.3 % (2.6-8.5); Neutrophils Absolute Auto 2.7 K/mm3 (1.3-6.7); Neutrophils Percent Auto 60.2 % (45.5-73.1); Platelet Count Result 120 k/mm3 (150-375); Red Blood Count 2.83 M/mm3 (4.6-6.20); Red Cell Distribution Width 15.8 % (11.5-14.5); White Blood Count 4.5 K/mm3 (4.5-10.0)
[2020-02-15 05:23] LABS: Alanine Aminotransferase 16 U/L (4-50); Albumin Level 2.9 g/dL (3.5-5.1); Alkaline Phosphatase 76 U/L (38-126); Anion Gap 4 mmol/L (8-16); Aspartate Amino Transferase 34 U/L (17-59); Bilirubin,Total 1.1 mg/dL (0.2-1.3); Blood Urea Nitrogen 12 mg/dL (9-20); Calcium 8.5 mg/dL (8.4-10.2); Carbon Dioxide 35 mmol/L (22-30); Chloride 98 mmol/L (98-107); Estimated CRCL calculation 83 ml/min; Estimated Glomerular Filt Rate > 60; Glucose 94 mg/dL (75-110); Potassium 3.8 mmol/L (3.4-5.0); Sodium 137 mmol/L (137-145)
[2020-02-15] MEDS: KCL 20 MEQ/D5/0.45% SOD CHL 1,000 ML 125 ML IV CONT (05:49)
--- NOTE | 2020-02-15 08:00 | ECG_ITS ---
Measurements Intervals [place] Rate: 66 P: 59 SD: 175 QRS: 33 QRSD: 93 T: 28 QT: 392 QTc: 412 Interpretive Statements SINUS RHYTHM INCOMPLETE RIGHT BUNDLE BRANCH BLOCK NONSPECIFIC T-WAVE ABNORMALITY- ANT/INF LEADS BORDERLINE ECG Electronically Signed On 02-15-2020 8:37:35 CDT by Rickey Duong D.O.
[2020-02-15] MEDS: THIAMINE HCL 100 MG TABLET PO (09:10)
[2020-02-15] MEDS: PANTOPRAZOLE 40 MG TABLET PO ×2 (09:10→21:24)
[2020-02-15 09:57] LABS: Hepatitis B Surface Antigen Negative (Negative)
[2020-02-15 10:03] LABS: HAV RESULT Negative (Negative); Hepatitis B Core IgM Result Negative (Negative)
[2020-02-15 10:33] LABS: Hepatitis C Virus Antibody Reactive (Negative)
--- NOTE | 2020-02-15 11:56 | PM.IMPN ---
Progress Note: A&P Assessment and Plan (1) Acute kidney failure: Code(s): N17.9 - Acute kidney failure, unspecified Status: Acute Assessment and Plan: Presumably due to dehydration from poor oral intake, an ongoing issue for several months. Cr 1.6 on admissions and better with IV fluids down to 0.9. Abd US showing normal kidneys. Furosemide has been discontinued. Continue to follow. (2) Hypokalemia: Code(s): E87.6 - Hypokalemia Status: Acute Assessment and Plan: Potassium was 2.9 on admission and replaced. Repeat potassium level 3.8 today. Okay to stop IV fluids (3) Macrocytosis: Code(s): D75.89 - Other specified diseases of blood and blood-forming organs Status: Acute Assessment and Plan: Noted on previous labs, but not to this extent. Thrombocytopenia is chronic as well. Could be a myelodysplastic etiology. Leukopenia is new but resolved today. B12, folate and TSH normal. Has a history of daily alcohol use but no liver abnormalities by US. CT scan pending. If unrevealing, then will need BM biopsy possibly. (4) Weight loss: Code(s): R63.4 - Abnormal weight loss Status: Acute Assessment and Plan: History is concerning for possible malignancy with DVT/PE last year and unintentional weight loss. EGD showing gastritis. No obvious findings of concern except possibly sister ace kern nodule. CXR clear. Abd US showing no concerning findings. Check CT A/P ordered. (5) Abnormal EKG: Code(s): R94.31 - Abnormal electrocardiogram [ECG] [EKG] Status: Acute Assessment and Plan: EKG showing ST-T wave changes mostly in the anterior leads. Trop negative x 3. Could be related to hypokalemia. Repeat EKG showing similar findings but not as prominent. Okay to stop tele. (6) History of atrial flutter: Code(s): Z86.79 - Personal history of other diseases of the circulatory system Status: Acute Assessment and Plan: No recurrence on tele. Continue Xarelto. Metoprolol on hold due to soft BP. Resume when able. Okay to stop tele (7) History of pulmonary embolism: Code(s): Z86.711 - Personal history of pulmonary embolism Status: Acute Assessment and Plan: Hx of PE and DVT currently on termite inspector AC. (8) Chronic back pain: Code(s): M54.9 - Dorsalgia, unspecified; G89.29 - Other chronic pain Status: Acute Assessment and Plan: Chronic. Continue [place]. Subjective Date/time seen: 02/15/20 11:56 Interval history: Date of service: 02/14 59yo male with hx of CAD and VTE on longterm AC here for n/v, weakness and weight loss. Slept poorly last night. No nausea or vomiting. Eating poorly still. He states he is not eating well because the food tastes so bad . He states that he does not want to even try it . No metallic taste in the mouth. No dysgeusia. Exam Narrative: Exam Narrative: AF 97.4 100/85 69 16 95% ra Gen - NARD lying almost flat in bed Chest - CTA bilaterally, nml RR CV - RRR S1/S2; Tele showing no significant dysrhythmias Abd - Soft, NT, ND, Positive BS Ext - No pedal edema; right foot congenital abnormality Neuro - Alert and oriented. Nonfocal exam. Psych - Nml mood and affect Skin - acrocyanosis noted right arm and hemithorax Objective Data Vital Signs Vital Signs: Vital Signs - 24 hr 02/14/20 12:25 02/14/20 12:35 02/14/20 12:45 Temperature Pulse Rate 67 58 L 59 L Respiratory Rate 20 22 H 18 Blood Pressure 8
--- NOTE | 2020-02-15 12:39 | WPDGIPROGNO ---
Progress Note: A&P Assessment and Plan (1) Nausea: Code(s): R11.0 - Nausea Status: Acute Assessment and Plan: improved and better egd showed gastritis, bx pending advance diet as tolerated (2) Gastritis: Code(s): K29.70 - Gastritis, unspecified, without bleeding Status: Acute Assessment and Plan: started on ppi (3) Hepatitis C antibody positive in blood: Code(s): R76.8 - Other specified abnormal immunological findings in serum Status: Acute Assessment and Plan: I think he has liver disease (alcoholic and also remote history of iv use when he was much younger) given macrocytosis, thrombocytopenia and low albumin, awaiting for RNA to confirm chronic HCV (also genotype)- if positive then I can treat it as outpatient. HBV negative. will order liver fibrosis panel to assess if cirrhosis (ultrasound was normal) (4) Alcohol abuse: Code(s): F10.10 - Alcohol abuse, uncomplicated Status: Acute Assessment and Plan: supportive care, he has not been drinking much last few months but previously he was a heavy drinker (5) Macrocytic anemia: Code(s): D53.9 - Nutritional anemia, unspecified Status: Acute (6) Thrombocytopenia: Code(s): D69.6 - Thrombocytopenia, unspecified Status: Acute (7) Acute kidney failure: Code(s): N17.9 - Acute kidney failure, unspecified Status: Acute Assessment and Plan: resolved (8) Weight loss: Code(s): R63.4 - Abnormal weight loss Status: Acute Assessment and Plan: CT scan pending will do also a colonoscopy on Monday (hold xarelto in preparation for scope) (9) History of pulmonary embolism: Code(s): Z86.711 - Personal history of pulmonary embolism Status: Acute (10) Chronic back pain: Code(s): M54.9 - Dorsalgia, unspecified; G89.29 - Other chronic pain Status: Acute Assessment and Plan: using narcotics at home. Subjective Date/time seen: 02/15/20 12:40 Interval history: he is feeling better, still poor appetite but no vomiting. EGD showed moderate gastritis. Review of Systems Review of Systems: All systems reviewed & are unremarkable except as noted in HPI and below Exam Const: General: comfortable and no acute distress HENMT: General nose exam: Normal nares present Eyes: General: appearance normal, both eyes and all related structures Neck: Neck: no JVD Resp: Auscultation: clear to auscultation bilaterally Cardio: Rate: regular rate Rhythm: regular rhythm GI: Inspection: non-distended GI Palp: Yes Soft to palpation Auscultation: normal bowel sounds Skin: General skin exam: normal color Neuro: General: gait normal Speech: normal speech Extrem: General: normal to inspection Psych: Mental Status: mental status grossly normal Objective Data Vital Signs Vital Signs: Vital Signs - 24 hr 02/14/20 12:45 02/14/20 13:18 02/14/20 14:41 Temperature 96.1 F L Pulse Rate 59 L 64 64 Respiratory Rate 18 16 Blood Pressure 95/68 L 102/70 Pulse Oximetry 100 92 02/14/20 16:00 02/14/20 18:00 02/14/20 20:00 Temperature 97 F L Pulse Rate 69 71 71 Respiratory Rate 14 Blood Pressure 104/65 Pulse Oximetry 97 02/14/20 21:26 02/14/20 22:00 02/15/20 00:00 Temperature 98.0 F 98.4 F Pulse Rate 66 72 77 Respiratory Rate 18 18 Blood Pressure 107/70 116/77 Pulse Oximetry 96 97 02/15/20 02:00 02/15/20 04:00 02/15/20 06:00 Temperature 97.9 F Pulse Rate 70 64 79 Respiratory Rate 20 Blood Pressure 103/71 Pulse Oximetry 72 L 02/15/20 08:00 02/15/20 12:00 Temperature 97.4 F L 96.9 F L Pulse Rate 69 72 Respiratory Rate 16 18 Blood Pressure 100/85 123/84 Pulse Oximetry 95 98 Intake/Output Intake/Output: Intake & Output 02/12/20 02/13/20 02/14/20 02/15/20 23:59 23:59 23:59 23:59 Intake Total 1000 4100 1070 Output Total 1000 1600 Balance 1000 3100 -530 Meds
--- NOTE | 2020-02-15 13:02 | WPDANESPN ---
Anes - Prog Note Post-Op Date/Time: 02/15/20 13:02 Cardiovascular status: normal Respiratory status: normal Airway patency: baseline Mental status: baseline Post-Op hydration status: normal Vital Signs: Last Vital Signs Temp 36.1 C L 02/15/20 12:00 Pulse 72 02/15/20 12:00 Resp 18 02/15/20 12:00 BP 123/84 02/15/20 12:00 Pulse Ox 98 02/15/20 12:00 Pain Score (VAS): 0/10 I/O: Intake & Output 02/14/20 02/15/20 02/15/20 23:59 07:59 15:59 Intake Total 1700 950 120 Output Total 1000 1600 Balance 700 -650 120 Laboratory Tests 02/15/20 04:25 02/15/20 04:25 02/14/20 02/15/20 02/15/20 21:04 04:25 04:25 WBC RBC Hgb Hct MCV MCH MCHC RDW Plt Count MPV Immature Gran % (Auto) Neut % (Auto) Lymph % (Auto) [place] % (Auto) Eos % (Auto) Baso % (Auto) Lymph # (Auto) [place] # (Auto) Eos # (Auto) Baso # (Auto) Abs Immat Gran (auto) Absolute Neuts (auto) Absolute Nucleated RBC Nucleated RBC % Sodium 137 Potassium 3.6 3.8 Chloride 98 Carbon Dioxide 35 H Anion Gap 4 L BUN 12 D Creatinine 0.90 Estim Creat Clear Calc 83 Estimated GFR > 60 Glucose 94 Calcium 8.5 Magnesium 2.1 2.0 Total Bilirubin 1.1 AST 34 ALT 16 Alkaline Phosphatase 76 Lactate Dehydrogenase 404 Total Protein 5.0 L Albumin 2.9 L Hepatitis A IgM Ab Negative Hep Bs Antigen Negative Hep B Core IgM Ab Negative Hepatitis C Ab Screen Reactive HCV RNA (PCR) IUs/ml HCV RNA PCR log IUs/ml 02/15/20 02/15/20 04:25 04:25 WBC 4.5 RBC 2.83 L Hgb 11.9 L Hct 33.8 L MCV 119.4 H MCH 42.0 H MCHC 35.2 RDW 15.8 H Plt Count 120 L MPV 10.1 Immature Gran % (Auto) 0.2 Neut % (Auto) 60.2 Lymph % (Auto) 32.6 [place] % (Auto) 5.3 Eos % (Auto) 1.3 Baso % (Auto) 0.4 Lymph # (Auto) 1.47 [place] # (Auto) 0.2 Eos # (Auto) 0.1 Baso # (Auto) 0.0 Abs Immat Gran (auto) 0.01 Absolute Neuts (auto) 2.7 Absolute Nucleated RBC 0.0 Nucleated RBC % 0.0 Sodium Potassium Chloride Carbon Dioxide Anion Gap BUN Creatinine Estim Creat Clear Calc Estimated GFR Glucose Calcium Magnesium Total Bilirubin AST ALT Alkaline Phosphatase Lactate Dehydrogenase Total Protein Albumin Hepatitis A IgM Ab Hep Bs Antigen Hep B Core IgM Ab Hepatitis C Ab Screen HCV RNA (PCR) IUs/ml Pending HCV RNA PCR log IUs/ml Pending Post-procedural complaints: none Patient Feedback: Patient satisfied with anesthetic care.
--- NOTE | 2020-02-15 15:36 | PC.NURSE ---
This patient, Shantanu Melendrez, was received from [ U] on 02/15/20 at 1536. Report given by Leanne lCeveland. Personal belongings list checked and signed. Patient/family oriented to unit policies and routines
[2020-02-15] MEDS: BISACODYL 10 MG SUPPOSITORY RECTAL (15:50)
--- NOTE | 2020-02-15 16:12 | PC.NURSE ---
This patient, Shantanu Melendrez, was transferred to [facility] on 02/15/20 at 1530. Personal belongings sent with patient. Report given to Leanne KLINE. Appropriate documentation sent with patient.
[2020-02-15] MEDS: polyethylene glycoL 3350 17 GM POWD.PACK PO (17:32)
[2020-02-16] MEDS: HYDROcodone/acetaminophen (*CRX) 5-325 MG TABLET 1 TAB PO ×2 (00:32→05:37)
[2020-02-16 06:00] VITALS: BP 118/81; PULSE 72; RESP 18; TEMP 36.5; O2SAT 96
[2020-02-16 06:08] LABS: Hematocrit 29.2 % (42.0-52.0); Hemoglobin 10.4 g/dL (14.0-18.0); Immature Platelet Fraction Pct 2.2 % (0.9-11.2); Mean Corpuscular HGB Conc 35.6 g/dl (32-36); Mean Corpuscular Hemoglobin 42.3 pg (26-34); Mean Corpuscular Volume 118.7 fl (80-100); Mean Platelet Volume 10.1 fl (7.4-10.4); Platelet Count Result 123 k/mm3 (150-375); Red Blood Count 2.46 M/mm3 (4.6-6.20); Red Cell Distribution Width 15.8 % (11.5-14.5); White Blood Count 3.6 K/mm3 (4.5-10.0)
[2020-02-16 06:38] LABS: Albumin Level 2.6 g/dL (3.5-5.1); Anion Gap -1 mmol/L (8-16); Blood Urea Nitrogen 10 mg/dL (9-20); Calcium 8.5 mg/dL (8.4-10.2); Carbon Dioxide 32 mmol/L (22-30); Chloride 103 mmol/L (98-107); Estimated CRCL calculation 93 ml/min; Estimated Glomerular Filt Rate > 60; Glucose 82 mg/dL (75-110); Magnesium 1.8 mg/dL (1.6-2.3); Sodium 134 mmol/L (137-145)
[2020-02-16] MEDS: THIAMINE HCL 100 MG TABLET PO (08:22)
[2020-02-16] MEDS: PANTOPRAZOLE 40 MG TABLET PO ×2 (08:22→21:16)
[2020-02-16] MEDS: polyethylene glycoL 3350 17 GM POWD.PACK PO ×2 (08:22→17:20)
[2020-02-16] MEDS: BISACODYL 10 MG SUPPOSITORY RECTAL (08:27)
--- NOTE | 2020-02-16 10:34 | PM.IMPN ---
Progress Note: A&P Assessment and Plan (1) Acute kidney failure: Code(s): N17.9 - Acute kidney failure, unspecified Status: Acute Assessment and Plan: Presumably due to dehydration from poor oral intake, an ongoing issue for several months. Cr 1.6 on admissions and better with IV fluids. Abd US showing normal kidneys. Furosemide has been discontinued. IV fluids have been stopped. Continue to follow. (2) Hypokalemia: Code(s): E87.6 - Hypokalemia Status: Acute Assessment and Plan: Potassium was 2.9 on admission and replaced. Potassium better this morning at 4.0. Continue to follow. (3) Macrocytosis: Code(s): D75.89 - Other specified diseases of blood and blood-forming organs Status: Acute Assessment and Plan: Noted on previous labs, but not to this extent. Thrombocytopenia is chronic as well. Could be a myelodysplastic etiology or related to underlying liver disease. Leukopenia is new. B12, folate and TSH normal. Has a history of daily alcohol use but no liver abnormalities by US or CT scan. Does have splenic lesions felt to be granulatosis disease but consider lymphoma. LDH okay. Hematology consult. Fe 168 with TIBC 223 and 75% sat but Ferritin only 523. Not on oral iron. Suspect related to liver dysfunction and less likely hemochromotosis given the only mildly elevated ferritin. (4) Weight loss: Code(s): R63.4 - Abnormal weight loss Status: Acute Assessment and Plan: History is concerning for possible malignancy with DVT/PE last year and unintentional weight loss. EGD showing gastritis. No obvious findings of concern except the sister ace erlin nodule. CXR clear. Abd US showing no concerning findings. CT A/P also not revealing any concerning findings. Colonoscopy being planned for tomorrow.. (5) Abnormal EKG: Code(s): R94.31 - Abnormal electrocardiogram [ECG] [EKG] Status: Acute Assessment and Plan: EKG showing ST-T wave changes mostly in the anterior leads. Trop negative x 3. Could be related to hypokalemia. Repeat EKG showing persistent findings but improved. (6) History of atrial flutter: Code(s): Z86.79 - Personal history of other diseases of the circulatory system Status: Acute Assessment and Plan: No recurrence on tele. On Xarelto at home. Metoprolol on hold due to soft BP. Resume metoprolol at lower dose. Xarelto on hold for colonoscopy. (7) History of pulmonary embolism: Code(s): Z86.711 - Personal history of pulmonary embolism Status: Acute Assessment and Plan: Hx of PE and DVT currently on roasterman AC. (8) Chronic back pain: Code(s): M54.9 - Dorsalgia, unspecified; G89.29 - Other chronic pain Status: Acute Assessment and Plan: Chronic. Continue [place]. Add back Methadone and PRN oral Morphine for severe pain. (9) Hepatitis C antibody positive in blood: Code(s): R76.8 - Other specified abnormal immunological findings in serum Status: Acute Assessment and Plan: HepC Ab positive. Confirmatory testing has been ordered. (10) Gastritis: Code(s): K29.70 - Gastritis, unspecified, without bleeding Status: Acute Assessment and Plan: EGD on 02/12 showing moderate patchy gastritis of the gastric cardia and body. No ulcers. Contineu Protonix. Subjective Date/time seen
--- NOTE | 2020-02-16 11:06 | WPDGIPROGNO ---
Progress Note: A&P Assessment and Plan (1) Nausea: Code(s): R11.0 - Nausea Status: Acute Assessment and Plan: improved but still poor appetite egd showed gastritis, bx pending advance diet as tolerated (2) Gastritis: Code(s): K29.70 - Gastritis, unspecified, without bleeding Status: Acute Assessment and Plan: started on ppi (3) Hepatitis C antibody positive in blood: Code(s): R76.8 - Other specified abnormal immunological findings in serum Status: Acute Assessment and Plan: awaiting for RNA to confirm chronic HCV (also genotype)- if positive then I can treat it as outpatient. HBV negative. liver fibrosis panel pending to assess stage of liver disease and rule out cirrhosis (ultrasound was normal) (4) Alcohol abuse: Code(s): F10.10 - Alcohol abuse, uncomplicated Status: Acute Assessment and Plan: supportive care, he has not been drinking much last few months but previously he was a heavy drinker (5) Macrocytic anemia: Code(s): D53.9 - Nutritional anemia, unspecified Status: Acute (6) Thrombocytopenia: Code(s): D69.6 - Thrombocytopenia, unspecified Status: Acute (7) Acute kidney failure: Code(s): N17.9 - Acute kidney failure, unspecified Status: Acute Assessment and Plan: resolved (8) Weight loss: Code(s): R63.4 - Abnormal weight loss Status: Acute Assessment and Plan: CT scan no major findings to explain weight loss but will proceed with a colonoscopy tomorrow and debbie is on hold in preparation for scope (9) History of pulmonary embolism: Code(s): Z86.711 - Personal history of pulmonary embolism Status: Acute (10) Chronic back pain: Code(s): M54.9 - Dorsalgia, unspecified; G89.29 - Other chronic pain Status: Acute Assessment and Plan: using narcotics at home which produces constipation Subjective Date/time seen: 02/16/20 11:06 Interval history: still poor appetite but no vomiting, he had a BM. CT scan a/p reviewed Review of Systems Review of Systems: All systems reviewed & are unremarkable except as noted in HPI and below Exam Const: General: comfortable and no acute distress HENMT: General nose exam: Normal nares present Eyes: General: appearance normal, both eyes and all related structures Neck: Neck: no JVD Resp: Auscultation: clear to auscultation bilaterally Cardio: Rate: regular rate Rhythm: regular rhythm GI: Inspection: non-distended GI Palp: Yes Soft to palpation Auscultation: normal bowel sounds Skin: General skin exam: normal color Neuro: General: gait normal Speech: normal speech Extrem: General: normal to inspection Psych: Mental Status: mental status grossly normal Objective Data Vital Signs Vital Signs: Vital Signs - 24 hr 02/15/20 12:00 02/15/20 22:00 02/16/20 06:00 Temperature 96.9 F L 97.8 F 97.7 F Pulse Rate 73 73 72 Respiratory Rate 18 18 18 Blood Pressure 123/84 121/79 118/81 Pulse Oximetry 98 96 96 Intake/Output Intake/Output: Intake & Output 02/13/20 02/14/20 02/15/20 02/16/20 23:59 23:59 23:59 23:59 Intake Total 1000 4100 1630 350 Output Total 1000 2050 1350 Balance 1000 3100 -420 -1000 Meds/Results Medications: Active Medications Generic Name Dose Route Start Last Admin Trade Name Freq PRN Reason Stop Dose Admin Acetaminophen 650 mg 02/14/20 20:37 Tylenol Tablet PO Q6H PRN Mild Pain (1-3) or Fever Hydrocodone Bitart/Acetaminophen 1 tab 02/13/20 14:57 02/16/20 05:37 [place] 5-325 Mg PO 1 tab Q4H PRN Administration Pain Rated 4-6 Bisacodyl 10 mg 02/16/20 09:00 02/16/20 08:27 Dulcolax Suppository RECTAL 02/17/20 09:01 10 mg QAM PIO Administration Ondansetron HCl 4 mg 02/13/20 14:57 Zofran Inj IV PUSH Q4H PRN Nausea Pantoprazole Sodium 40 mg 02/14/20 09:00 02/16/20 08:22 Protonix PO 40 mg
[2020-02-16] MEDS: methADONE HCL (*CRX) 10 MG TABLET PO (12:07)
[2020-02-16 12:24] LABS: Iron 168 ug/dL (49-181)
[2020-02-16 12:33] LABS: Percent Iron Saturation 75 % (20-50)
[2020-02-16 14:00] VITALS: BP 125/80; PULSE 81; RESP 16; TEMP 36.5; O2SAT 100
[2020-02-16] MEDS: PEG (High)/E-LYTE SOLN 4,000 ML BTL 4000 ML PO (15:46)
[2020-02-16] MEDS: MORPHINE SULFATE (*CRX) 15 MG TAB IR 30 MG PO (17:19)
[2020-02-16] MEDS: BISACODYL 5 MG TABLET EC 20 MG PO (17:19)
[2020-02-16] MEDS: polyethylene glycoL 3350 238 GM BOTTLE PO (19:53)
[2020-02-16 22:00] VITALS: BP 120/89; PULSE 96; RESP 20; TEMP 36.6; O2SAT 96; BMI 30.7
[2020-02-16] MEDS: ONDANSETRON INJ 4 MG/2 ML VIAL IV PUSH (23:43)
[2020-02-17] MEDS: MORPHINE SULFATE (*CRX) 15 MG TAB IR 30 MG PO ×2 (01:42→17:27)
[2020-02-17] MEDS: MAGNESIUM CITRATE 300 ML BTL PO (04:29)
--- NOTE | 2020-02-17 05:37 | PC.NURSE ---
This morning patient reports multiple instances of emesis overnight. Patient did report one episode of emesis early in shift and a one time dose of zofran was given. Patient did not report further instances of emesis until this morning. Patient reports he was not using provided emesis bag so RN did not see the emesis and was unaware of it for most of the night.
[2020-02-17 05:59] LABS: Basophils Percent Auto 0.2 % (0.2-1.2); Eosinophils Percent Auto 0.8 % (0-4.4); Hematocrit 33.9 % (42.0-52.0); Immature Granulocyte Absolute 0.01 K/mm3 (0.00-0.031); Immature Granulocyte Percent A 0.2 % (0-0.5); Lymphocytes Absolute Auto 0.72 K/mm3 (0.9-3.2); Lymphocytes Percent Auto 14.4 % (18.3-44.2); Mean Corpuscular HGB Conc 35.4 g/dl (32-36); Mean Corpuscular Hemoglobin 42.6 pg (26-34); Mean Corpuscular Volume 120.2 fl (80-100); Mean Platelet Volume 9.9 fl (7.4-10.4); Monocytes Absolute Auto 0.3 K/mm3 (0.1-0.6); Monocytes Percent Auto 5.2 % (2.6-8.5); Neutrophils Percent Auto 79.2 % (45.5-73.1); Platelet Count Result 128 k/mm3 (150-375); Red Blood Count 2.82 M/mm3 (4.6-6.20); Red Cell Distribution Width 15.9 % (11.5-14.5)
[2020-02-17 06:09] LABS: INR 1.2; Prothrombin Time 15.3 Seconds (11.1-14.7)
[2020-02-17 06:14] LABS: Albumin Level 3.2 g/dL (3.5-5.1); Anion Gap 0 mmol/L (8-16); Blood Urea Nitrogen 10 mg/dL (9-20); Calcium 9.2 mg/dL (8.4-10.2); Carbon Dioxide 34 mmol/L (22-30); Chloride 102 mmol/L (98-107); Estimated CRCL calculation 83 ml/min; Estimated Glomerular Filt Rate > 60; Glucose 104 mg/dL (75-110); Magnesium 1.8 mg/dL (1.6-2.3); Sodium 136 mmol/L (137-145)
[2020-02-17 06:41] VITALS: BP 121/87; PULSE 95; RESP 20; TEMP 36.6; O2SAT 97
[2020-02-17] MEDS: BISACODYL 10 MG SUPPOSITORY RECTAL (08:13)
[2020-02-17] MEDS: polyethylene glycoL 3350 17 GM POWD.PACK PO (08:14)
[2020-02-17 11:15] LABS: HIV 1/2 Ab P24 Ag Result Negative (Negative)
--- NOTE | 2020-02-17 11:15 | PM.PNCARD ---
Progress Note: A&P Assessment and Plan (1) Hypotension: Code(s): I95.9 - Hypotension, unspecified Status: Acute Assessment and Plan: Likely 2nd nausea, anorexia, dehydration. Hold diuretic. Continue IV fluids. (2) Nausea: Code(s): R11.0 - Nausea Status: Acute Assessment and Plan: May be related to the low blood pressure. He has had a 20-30 lb weight loss over the past 4 months so he may have other issues. (3) Weight loss: Code(s): R63.4 - Abnormal weight loss Status: Acute Assessment and Plan: 20-30 lb weight loss noted. (4) Abnormal EKG: Code(s): R94.31 - Abnormal electrocardiogram [ECG] [EKG] Status: Acute Assessment and Plan: Some slight ST depression noted anterolaterally. However, this is non-specific and may relate to his right ventricular strain. Troponin 0.019, 0.016, 0.016. No evidence of ACS. No ischemic symptoms. (5) Macrocytosis: Code(s): D75.89 - Other specified diseases of blood and blood-forming organs Status: Acute Assessment and Plan: Macrocytic indices, perhaps some liver disease related to his alcohol use or perhaps B12 or folate deficiency. B12 and folate levels are within normal limits. (6) Acute kidney failure: Code(s): N17.9 - Acute kidney failure, unspecified Status: Acute Assessment and Plan: elevated BUN and creatinine noted. (7) Hypokalemia: Code(s): E87.6 - Hypokalemia Status: Acute Assessment and Plan: replaced (8) History of pulmonary embolism: Code(s): Z86.711 - Personal history of pulmonary embolism Status: Acute Assessment and Plan: History of multiple PEs in December 2018, on chronic therapy with Xarelto. he was in the chronic DVT /PE dose of 10 mg daily. Will change from 20 down to 10 mg Restart Xarelto this evening. Did not get a dose yesterday evening. (9) History of atrial flutter: Code(s): Z86.79 - Personal history of other diseases of the circulatory system Status: Acute Assessment and Plan: History of atrial flutter noted in December 2018. Currently in normal sinus rhythm Additional Plan 2 g IV magnesium x1 Subjective Date/time seen: 02/17/20 11:15 Interval history: Follow-up for: Hypotension, nausea, weight, abnormal EKG, PANDA, hypokalemia, hypomagnesemia, history of atrial flutter, history of pulmonary embolus Date of service: Subjective: no chest pain, shortness of breath, syncope Review of Systems Constitutional: Constitutional: Reports difficulty sleeping, Reports fatigue, Reports lethargy and Reports weakness Eyes: Eyes: Denies blurry vision ENT: Denies dysphagia, Reports vertigo, Denies epistaxis and Denies nasal congestion Cardiovascular: Cardiovascular: Denies chest pain, Denies leg edema ( Resolved), Reports lightheadedness, Denies palpitations and Reports dyspnea on exertion Respiratory: Respiratory: Denies hemoptysis, Reports dyspnea on exertion and Reports wheezing ( occasional wheezes) Gastrointestinal: Gastrointestinal: Denies abdominal pain, Denies melena, Denies hematochezia, Denies dysphagia, Denies diarrhea, Reports nausea ( With any movement) and Denies vomiting Genitourinary: Genitourinary: Denies hematuria and Denies dysuria Musculoskeletal: Musculoskeletal: Reports abnormal gait ( trouble walking because of dizziness) and Reports back pain Integumentary/Breasts: Skin/Breast: Reports erythema ( 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
[2020-02-17] MEDS: ONDANSETRON HCL ODT 4 MG TABLET PO (11:29)
[2020-02-17] MEDS: MAGNESIUM SULF 2 GM/WATER 50ML 2 GM/50 ML BAG IVPB (11:30)
[2020-02-17 11:32] VITALS: BMI 30.5
[2020-02-17] MEDS: PANTOPRAZOLE 40 MG TABLET PO ×2 (13:16→20:42)
[2020-02-17] MEDS: methADONE HCL (*CRX) 10 MG TABLET PO (13:16)
[2020-02-17] MEDS: THIAMINE HCL 100 MG TABLET PO (13:17)
--- NOTE | 2020-02-17 13:51 | WPDGIPROGNO ---
Progress Note: A&P Assessment and Plan (1) Nausea: Code(s): R11.0 - Nausea Status: Acute Assessment and Plan: improved but still poor appetite egd showed gastritis hypokalemia resolved and overall better, still nauseous but no vomiting antiemetics prn (2) Gastritis: Code(s): K29.70 - Gastritis, unspecified, without bleeding Status: Acute Assessment and Plan: started on ppi, bx still pending (3) Hepatitis C antibody positive in blood: Code(s): R76.8 - Other specified abnormal immunological findings in serum Status: Acute Assessment and Plan: awaiting for RNA to confirm chronic HCV I wonder if he could have liver disease (low albumin and low platelets) but imaging of liver was normal. also pending liver fibrosis score I will get hemochromatosis genetic test (high ferritin but could be phase reactant) (4) Alcohol abuse: Code(s): F10.10 - Alcohol abuse, uncomplicated Status: Acute Assessment and Plan: supportive care, he has not been drinking much last few months but previously he was a heavy drinker (5) Macrocytic anemia: Code(s): D53.9 - Nutritional anemia, unspecified Status: Acute (6) Thrombocytopenia: Code(s): D69.6 - Thrombocytopenia, unspecified Status: Acute (7) Acute kidney failure: Code(s): N17.9 - Acute kidney failure, unspecified Status: Acute Assessment and Plan: resolved (8) Weight loss: Code(s): R63.4 - Abnormal weight loss Status: Acute Assessment and Plan: CT scan no major findings to explain weight loss he could not drink prep, he can come to my office in 2-3 weeks and we can try to get colonoscopy as outpatient he also has chronic constipation because use of narcotics (9) History of pulmonary embolism: Code(s): Z86.711 - Personal history of pulmonary embolism Status: Acute Assessment and Plan: continue blood thinner (10) Chronic back pain: Code(s): M54.9 - Dorsalgia, unspecified; G89.29 - Other chronic pain Status: Acute Assessment and Plan: using narcotics at home which produces constipation Subjective Date/time seen: 02/17/20 13:51 Interval history: he got sick yesterday when tried to drink prep and did not complete. Review of Systems Review of Systems: All systems reviewed & are unremarkable except as noted in HPI and below Exam Const: General: comfortable and no acute distress HENMT: General nose exam: Normal nares present Eyes: General: appearance normal, both eyes and all related structures Neck: Neck: no JVD Resp: Auscultation: clear to auscultation bilaterally Cardio: Rate: regular rate Rhythm: regular rhythm GI: Inspection: non-distended GI Palp: Yes Soft to palpation Auscultation: normal bowel sounds Skin: General skin exam: normal color Neuro: General: gait normal Speech: normal speech Extrem: General: normal to inspection Psych: Mental Status: mental status grossly normal Objective Data Vital Signs Vital Signs: Vital Signs - 24 hr 02/16/20 14:00 02/16/20 22:00 02/17/20 06:41 Temperature 97.7 F 98 F 97.8 F Pulse Rate 81 96 95 Respiratory Rate 16 20 20 Blood Pressure 125/80 120/89 121/87 Pulse Oximetry 100 96 97 Intake/Output Intake/Output: Intake & Output 02/14/20 02/15/20 02/16/20 02/17/20 23:59 23:59 23:59 23:59 Intake Total 4100 1630 840 Output Total 1000 2050 1350 Balance 4194 -944 -495 Meds/Results Medications: Active Medications Generic Name Dose Route Start Last Admin Trade Name Freq PRN Reason Stop Dose Admin Acetaminophen 650 mg 02/14/20 20:37 Tylenol Tablet PO Q6H PRN Mild Pain (1-3) or Fever Hydrocodone Bitart/Acetaminophen 1 tab 02/13/20 14:57 02/16/20 05:[address] [place] 5-325 Mg PO 1 tab Q4H PRN Administration Pain Rated 4-6 Methadone HCl 10 mg 02/16/20 11:30 02/17/20 13:16 Methadone Hcl (*Crx) PO
[2020-02-17 14:00] VITALS: BP 113/76; PULSE 100; RESP 20; TEMP 36.9; O2SAT 93
--- NOTE | 2020-02-17 15:39 | PM.IMPN ---
Progress Note: A&P Assessment and Plan (1) Acute kidney failure: Code(s): N17.9 - Acute kidney failure, unspecified Status: Acute Assessment and Plan: -----resolved. 1.6 down to 0.90 likely due from dehydration with poor oral intake and several episodes of vomiting. Abd US showing normal kidneys. Furosemide has been discontinued. IV fluids have been stopped but was NPO this morning until the afternoon so he has not drank anything as of 4pm. He has been nauseated and is going to try to drink more fluids before having to go back on the IV. If he does well overnight, he can go home tomorrow. (2) Hypokalemia: Code(s): E87.6 - Hypokalemia Status: Acute Assessment and Plan: -----Potassium was 2.9 on admission and potassium is better this morning at 4.0. (3) Macrocytosis: Code(s): D75.89 - Other specified diseases of blood and blood-forming organs Status: Acute Assessment and Plan: -----Noted on previous labs, but not to this extent. Thrombocytopenia is chronic as well. Could be a myelodysplastic etiology or related to underlying liver disease (possible hep c, still pending). Leukopenia is new and intermittent. B12, folate and TSH normal. Has a history of daily alcohol use but no liver abnormalities by US or CT scan. Does have splenic lesions felt to be granulatosis disease but consider lymphoma. LDH okay. Hematology consult. Fe 168 with TIBC 223 and 75% sat but Ferritin only 523. Not on oral iron. Suspect related to liver dysfunction and less likely hemochromotosis given the only mildly elevated ferritin. (4) Weight loss: Code(s): R63.4 - Abnormal weight loss Status: Acute Assessment and Plan: -----History is concerning for possible malignancy with DVT/PE last year and unintentional weight loss. EGD showing gastritis. CXR clear. Abd US showing no concerning findings. CT A/P also not revealing any concerning findings. Colonoscopy and hematology outpt work up planned. (5) Abnormal EKG: Code(s): R94.31 - Abnormal electrocardiogram [ECG] [EKG] Status: Acute Assessment and Plan: ------EKG showing ST-T wave changes mostly in the anterior leads. Trop negative x 3. Could have been related to hypokalemia. Repeat EKG showing persistent findings but improved. (6) History of atrial flutter: Code(s): Z86.79 - Personal history of other diseases of the circulatory system Status: Acute Assessment and Plan: ------No recurrence on tele. On Xarelto at home. Metoprolol on hold due to soft BP. I have restarted metoprolol at lower dose. Will restart Xarelto. (7) History of pulmonary embolism: Code(s): Z86.711 - Personal history of pulmonary embolism Status: Acute Assessment and Plan: -----Hx of PE and DVT, restart xarelto tonight (8) Chronic back pain: Code(s): M54.9 - Dorsalgia, unspecified; G89.29 - Other chronic pain Status: Acute Assessment and Plan: -----Chronic. Continue [place]. Continue Methadone and PRN oral Morphine for severe pain. (9) Hepatitis C antibody positive in blood: Code(s): R76.8 - Other specified abnormal immunological findings in serum Status: Acute Assessment and Plan: ------HepC Ab positive. Confirmatory testing has been ordered. (10) Gastritis: Code(s): K29.70 - Gastritis, unspecified, without bleeding Status: Acute Assessment and Plan: -----EGD on 02/12 showing moderate patchy gastritis of the gastric cardia and body. No ulcers. Continue Protonix. Time Spent With Patient Time with patient: 25 - 35 minutes Subjective Date/time seen: 02/17/20 15:39 Interval history: Pt is a 59-year-old male here for unintentional weight loss and weakness. Patient was seen this afternoon and is not feeling well at all. He said he had a lot of nausea
--- NOTE | 2020-02-17 17:05 | PDONCCN ---
HPI - Date of Consult Date/Time: 02/17/20 17:05 Requesting Physician: Erma Ray PA-C Primary Care Provider: Dougie Galaviz MD - Consult Narrative Reason for consult: Macrocytic anemia and leukopenia. Narrative: Shantanu Melendrez is a 59 year old male This is a 59-year-old male with history of drinking heavily without any documented history of liver disease came into the hospital with generalized weakness. Patient also has a history of pulmonary embolism and atrial fibrillation. Patient has been losing weight and has lost 30 lb weight in the last several months. She he was also complaining of nausea vomiting and abdominal discomfort with mild shortness of breath and lightheadedness. Labs showed macrocytosis with anemia and mild thrombocytopenia. CT scan of abdomen showed normal spleen and liver. Patient has been experiencing abdominal distention. He denies any other new complaints. Review of Systems - Review of Systems All systems reviewed & are unremarkable except as noted in HPI and bel - Neurologic Reports hearing normal, Reports abnormal gait ( trouble walking because of dizziness), Reports vertigo, Reports weakness, Denies syncope, Denies headache(s), Denies focal weakness, Denies numbness [facility] Medical History: Medical History (Last Updated 02/15/20 @ 12:42 by Ad Luke MD) Alcohol abuse Angiomatosis Benign colon polyp Chronic back pain On long-term opioid therapy. Current use of detention anticoagulation Gastritis Gastroesophageal reflux disease Hepatitis C antibody positive in blood Left leg DVT Onset Date: ~12/2018 Macrocytic anemia Non-STEMI (non-ST elevated myocardial infarction) Onset Date: ~12/2018 Related to submassive pulmonary embolism. Paroxysmal atrial flutter Pulmonary embolism Pulmonary embolism with acute cor pulmonale Onset Date: ~12/2018 Scoliosis Thrombocytopenia Surgical History: Surgical History (Last Updated 02/13/20 @ 19:53 by Sparkle Lares PA-C) History of colonoscopy History of facial surgery Right orbit repair. History of orthopedic surgery Surgical fixation left tib-fib, right foot surgery. Family History: Family History (Last Reviewed 02/13/20 @ 20:45 by Stella Bautista RN) Father Heart disease age 68 of heart disease Mother Dementia age 94, had dementia Unknown Heart disease family history of heart disease, kidney disease, and possible pulmonary emboli - Social History Social History: Social History (Last Updated 02/13/20 @ 19:55 by Sparkle Lares PA-C) Gender Identity: Gender identity (if verbalized by the patient): Male Alcohol Use: Alcohol intake: current Drinks per week: 21 Substance Use: Substance use: current Substance use type: marijuana Others: Spiritual care concerns: No Smoking Status: Smoking status: Current every day smoker Tobacco type: cigarettes Smoking Pack-years: Smoking packs per day: 0.75 Smoking cigarettes per day: 15.0 Meds Home Medications Medication Instructions Recorded Confirmed Type furosemide 40 mg PO DAILY 02/13/20 02/13/20 History methadone 10 mg PO DAILY 02/13/20 02/13/20 History metoprolol succinate 25 mg PO DAILY 02/13/20 02/13/20 History morphine 30 mg PO BID-TID PRN 02/13/20 02/13/20 History pantoprazole 40 mg PO DAILY 02/13/20 02/13/20 History potassium chloride 20 meq PO DAILY 02/13/20 02/13/20 History rivaroxaban [Xarelto] 10 mg PO DAILY 02/13/20 02/13/20 History Allergies Allergy/AdvReac Type Severity Reaction Status Date / Time No Known Allergies Allergy Mild Verified 02/13/20 12:45 Results - Labs CBC & Chem 7: 02/17/20 05:39 02/17/20 05:39 Labs: Short CBC 02/17/20 Range/Units 05:39 WBC 5.0 (4.5-10.0) K/mm3 Hgb 12.0 L (14.0-18.0) g/dL Hct 33.9 L (42.0-52.0) % Plt Count 128 L (150-375)
[2020-02-17] MEDS: RIVAROXABAN 20 MG TABLET PO (19:21)
[2020-02-17 22:00] VITALS: BP 116/84; PULSE 100; RESP 20; TEMP 36.9; O2SAT 90
[2020-02-18] MEDS: MORPHINE SULFATE (*CRX) 15 MG TAB IR 30 MG PO ×2 (01:23→17:13)
[2020-02-18 06:00] VITALS: BP 116/83; PULSE 107; RESP 20; TEMP 36.9; O2SAT 98
[2020-02-18 06:08] LABS: Basophils Percent Auto 0.3 % (0.2-1.2); Eosinophils Absolute Auto 0.1 K/mm3 (0-0.3); Eosinophils Percent Auto 1.2 % (0-4.4); Hematocrit 30.7 % (42.0-52.0); Hemoglobin 10.9 g/dL (14.0-18.0); Immature Granulocyte Absolute 0.02 K/mm3 (0.00-0.031); Immature Granulocyte Percent A 0.3 % (0-0.5); Immature Platelet Fraction Pct 3.3 % (0.9-11.2); Lymphocytes Absolute Auto 0.95 K/mm3 (0.9-3.2); Lymphocytes Percent Auto 15.8 % (18.3-44.2); Mean Corpuscular HGB Conc 35.5 g/dl (32-36); Mean Corpuscular Hemoglobin 41.8 pg (26-34); Mean Corpuscular Volume 117.6 fl (80-100); Mean Platelet Volume 10.2 fl (7.4-10.4); Monocytes Absolute Auto 0.5 K/mm3 (0.1-0.6); Monocytes Percent Auto 7.8 % (2.6-8.5); Neutrophils Absolute Auto 4.5 K/mm3 (1.3-6.7); Neutrophils Percent Auto 74.6 % (45.5-73.1); Platelet Count Result 129 k/mm3 (150-375); Red Blood Count 2.61 M/mm3 (4.6-6.20); Red Cell Distribution Width 15.5 % (11.5-14.5)
[2020-02-18 06:19] LABS: Alanine Aminotransferase 18 U/L (4-50); Albumin Level 2.8 g/dL (3.5-5.1); Alkaline Phosphatase 80 U/L (38-126); Anion Gap 2 mmol/L (8-16); Aspartate Amino Transferase 33 U/L (17-59); Blood Urea Nitrogen 12 mg/dL (9-20); Calcium 8.9 mg/dL (8.4-10.2); Carbon Dioxide 34 mmol/L (22-30); Chloride 100 mmol/L (98-107); Estimated CRCL calculation 82 ml/min; Estimated Glomerular Filt Rate > 60; Glucose 103 mg/dL (75-110); Magnesium 2.1 mg/dL (1.6-2.3); Potassium 3.9 mmol/L (3.4-5.0); Sodium 136 mmol/L (137-145)
[2020-02-18 09:01] VITALS: PULSE 96
[2020-02-18] MEDS: METOPROLOL SUCCINATE EXT REL 12.5 MG TABCR PO (09:01)
[2020-02-18] MEDS: methADONE HCL (*CRX) 10 MG TABLET PO (09:01)
[2020-02-18] MEDS: THIAMINE HCL 100 MG TABLET PO (09:02)
[2020-02-18] MEDS: PANTOPRAZOLE 40 MG TABLET PO ×2 (09:02→22:03)
--- NOTE | 2020-02-18 09:39 | PM.PNCARD ---
Progress Note: A&P Assessment and Plan (1) Hypotension: Code(s): I95.9 - Hypotension, unspecified Status: Acute Assessment and Plan: Likely 2nd nausea, anorexia, dehydration. Hold diuretic. (2) Nausea: Code(s): R11.0 - Nausea Status: Acute Assessment and Plan: May be related to the low blood pressure. He has had a 20-30 lb weight loss over the past 4 months so he may have other issues. (3) Weight loss: Code(s): R63.4 - Abnormal weight loss Status: Acute Assessment and Plan: 20-30 lb weight loss noted. (4) Abnormal EKG: Code(s): R94.31 - Abnormal electrocardiogram [ECG] [EKG] Status: Acute Assessment and Plan: Some slight ST depression noted anterolaterally. However, this is non-specific and may relate to his right ventricular strain. Troponin 0.019, 0.016, 0.016. No evidence of ACS. No ischemic symptoms. Increase his metoprolol succinate up to 25 mg p.o. daily (5) Macrocytosis: Code(s): D75.89 - Other specified diseases of blood and blood-forming organs Status: Acute Assessment and Plan: Macrocytic indices, perhaps some liver disease related to his alcohol use or perhaps B12 or folate deficiency. B12 and folate levels are within normal limits. (6) Acute kidney failure: Code(s): N17.9 - Acute kidney failure, unspecified Status: Acute Assessment and Plan: elevated BUN and creatinine noted. (7) Hypokalemia: Code(s): E87.6 - Hypokalemia Status: Acute Assessment and Plan: replaced (8) History of pulmonary embolism: Code(s): Z86.711 - Personal history of pulmonary embolism Status: Acute Assessment and Plan: History of multiple PEs in December 2018, on chronic therapy with Xarelto. he was in the chronic DVT /PE dose of 10 mg daily. Restart Xarelto Did not get a dose yesterday evening. (9) History of atrial flutter: Code(s): Z86.79 - Personal history of other diseases of the circulatory system Status: Acute Assessment and Plan: History of atrial flutter noted in December 2018. Currently in normal sinus rhythm Subjective Date/time seen: 02/18/20 09:39 Interval history: Follow-up for: Hypotension, nausea, weight, abnormal EKG, PANDA, hypokalemia, hypomagnesemia, history of atrial flutter, history of pulmonary embolus Date of service: Subjective: no chest pain, shortness of breath, syncope Review of Systems Constitutional: Constitutional: Reports difficulty sleeping, Reports fatigue, Reports lethargy and Reports weakness Eyes: Eyes: Denies blurry vision ENT: Denies dysphagia, Reports vertigo, Denies epistaxis and Denies nasal congestion Cardiovascular: Cardiovascular: Denies chest pain, Denies leg edema ( Resolved), Reports lightheadedness, Denies palpitations and Reports dyspnea on exertion Respiratory: Respiratory: Denies hemoptysis, Reports dyspnea on exertion and Reports wheezing ( occasional wheezes) Gastrointestinal: Gastrointestinal: Denies abdominal pain, Denies melena, Denies hematochezia, Denies dysphagia, Reports diarrhea, Reports nausea ( With any movement) and Denies vomiting Genitourinary: Genitourinary: Denies hematuria and Denies dysuria Musculoskeletal: Musculoskeletal: Reports abnormal gait ( trouble walking because of dizziness) and Reports back pain Integumentary/Breasts: Skin/Breast: Reports erythema ( 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
--- NOTE | 2020-02-18 14:03 | PM.IMPN ---
Progress Note: A&P Assessment and Plan (1) Acute kidney failure: Code(s): N17.9 - Acute kidney failure, unspecified Status: Resolved Assessment and Plan: Resolved; suspect related to recent vomiting which is also improved today. (2) Hypokalemia: Code(s): E87.6 - Hypokalemia Status: Resolved Assessment and Plan: K is stable today. Will monitor. (3) Macrocytosis: Code(s): D75.89 - Other specified diseases of blood and blood-forming organs Status: Acute Assessment and Plan: Noted on previous labs. Thrombocytopenia is chronic also. May be related to liver disease (hep C RNA still pending). Leukopenia is new and intermittent. B12, folate and TSH normal. Has a history of daily alcohol use. Does have splenic lesions felt to be granulomatous disease. Appreciate Dr Su's input. Awaiting results of liver MRI from today, HCV RNA, hemochromatosis PCR. (4) Weight loss: Code(s): R63.4 - Abnormal weight loss Status: Acute Assessment and Plan: History is concerning for possible malignancy with DVT/PE last year and unintentional weight loss. EGD 02/[address] Salazar demonstrated gastritis. CXR clear. Colonoscopy and hematology outpatient work up planned. (5) Abnormal EKG: Code(s): R94.31 - Abnormal electrocardiogram [ECG] [EKG] Status: Acute Assessment and Plan: No chest pain. EKG showing ST-T wave changes mostly in the anterior leads. Trop negative x 3. Could have been related to hypokalemia. Repeat EKG showing persistent findings but improved. (6) History of atrial flutter: Code(s): Z86.79 - Personal history of other diseases of the circulatory system Status: Chronic Assessment and Plan: On Xarelto at home, resumed. Metoprolol resumed. Cardiology following - appreciate input. (7) History of pulmonary embolism: Code(s): Z86.711 - Personal history of pulmonary embolism Status: Chronic Assessment and Plan: Hx of PE and DVT 12/2018, continue Xarelto. (8) Chronic back pain: Code(s): M54.9 - Dorsalgia, unspecified; G89.29 - Other chronic pain Status: Chronic Assessment and Plan: Chronic. Continue home pain regimen. (9) Hepatitis C antibody positive in blood: Code(s): R76.8 - Other specified abnormal immunological findings in serum Status: Acute Assessment and Plan: HepC Ab positive. Confirmatory testing with HCV RNA is pending. (10) Gastritis: Code(s): K29.70 - Gastritis, unspecified, without bleeding Status: Acute Assessment and Plan: EGD on 02/13 showing moderate patchy gastritis of the gastric cardia and body, no ulcers. Continue Protonix. Symptoms improving today. Appreciate GI recommendations. Subjective Date/time seen: 02/18/20 1200 Interval history: Mr. Melendrez is a 59yo M admitted for nausea/vomiting, weight loss and weakness. He reports feeling a bit better today feels less nauseous than when he came in. No vomiting today. He denies chest pain or shortness of breath. Review of Systems Review of Systems: Narrative: Twelve systems were reviewed with pertinent positives and negatives as per HPI. Exam Narrative: Exam Narrative: General: Male resting sitting up in bed in no acute distress. HEENT: Normocephalic, EOMI, oral mucosa moist. Cardiovascular: Rate and rhythm are regular. Respiratory: Lungs clear to auscultation in all gill. Non-labored breathing. Tolerating room air. Abdomen: Soft,
[2020-02-18 16:25] VITALS: BP 111/76; PULSE 80; RESP 20; TEMP 36.1; O2SAT 99
[2020-02-18] MEDS: RIVAROXABAN 10 MG TABLET PO (17:13)
--- NOTE | 2020-02-18 17:13 | WPDONCPN ---
Progress Note: A/P - Additional Plan Macrocytic anemia with mild thrombocytopenia. MRI of the liver was done that showed no pathology. Alpha-fetoprotein is pending. Hepatitis serologies pending. Iron level were elevated. Hemochromatosis testing is pending. Patient will follow with me as an outpatient for further monitoring of blood count and possible bone marrow biopsy if needed. - Time Spent With Patient Total time spent is greater than 50% in coordination of care (as documented) at patient's floor/unit and/or counseling patient: 15 - 25 minutes Subjective Interval history: Pancytopenia Elevated iron level Review of Systems - Review of Systems Patient seen to be quite comfortable and alert today. Abdominal distention has diminished. He had a good bowel movement today. He denies any bleeding and bruising. Denies any other new complaints. - Neurologic Reports hearing normal, Reports abnormal gait ( trouble walking because of dizziness), Reports vertigo, Reports weakness, Denies syncope, Denies headache(s), Denies focal weakness, Denies numbness Exam Vital signs: Temp Pulse Resp BP Pulse Ox 36.1 C L 80 20 111/76 99 02/18/20 16:25 02/18/20 16:25 02/18/20 16:25 02/18/20 16:25 02/18/20 16:25 Narrative: Lungs are clear to auscultation bilaterally Cardiovascular regular rate rhythm no murmurs Abdomen mildly distended with ascites bowel sounds are positive Extremities no edema PN: Objective Data - Labs CBC & Chem 7: 02/18/20 05:28 02/18/20 05:28 Labs: Laboratory Results - last 24 hr 02/18/20 02/18/20 05:28 05:28 WBC 6.0 RBC 2.61 L Hgb 10.9 L Hct 30.7 L MCV 117.6 H MCH 41.8 H MCHC 35.5 RDW 15.5 H Plt Count 129 L MPV 10.2 Immature Gran % (Auto) 0.3 Neut % (Auto) 74.6 H Lymph % (Auto) 15.[address] [place] % (Auto) 7.8 Eos % (Auto) 1.2 Baso % (Auto) 0.3 Lymph # (Auto) 0.95 [facility] # (Auto) 0.5 Eos # (Auto) 0.1 Baso # (Auto) 0.0 Abs Immat Gran (auto) 0.02 Absolute Neuts (auto) 4.5 Absolute Nucleated RBC 0.0 Nucleated RBC % 0.0 % Immature Plt Fraction 3.3 Sodium 136 L Potassium 3.9 Chloride 100 Carbon Dioxide 34 H Anion Gap 2 L BUN 12 Creatinine 0.90 Estim Creat Clear Calc 82 Estimated GFR > 60 Glucose 103 Calcium 8.9 Magnesium 2.1 Total Bilirubin 1.0 Direct Bilirubin 0.0 AST 33 ALT 18 Alkaline Phosphatase 80 Total Protein 6.0 L Albumin 2.8 L
[2020-02-18 19:47] LABS: Hepatitis C RNA, Quant PCR 797000 IU/mL
[2020-02-18 19:48] LABS: Hepatitis C Viral RNA PCR 1840000 IU/mL
[2020-02-18 22:00] VITALS: BP 112/73; PULSE 85; RESP 20; TEMP 36.9; O2SAT 96
[2020-02-19 05:36] LABS: Basophils Percent Auto 0.2 % (0.2-1.2); Eosinophils Absolute Auto 0.1 K/mm3 (0-0.3); Eosinophils Percent Auto 1.8 % (0-4.4); Hematocrit 30.2 % (42.0-52.0); Hemoglobin 10.6 g/dL (14.0-18.0); Immature Granulocyte Absolute 0.01 K/mm3 (0.00-0.031); Immature Granulocyte Percent A 0.2 % (0-0.5); Immature Platelet Fraction Pct 3.2 % (0.9-11.2); Lymphocytes Percent Auto 33.1 % (18.3-44.2); Mean Corpuscular HGB Conc 35.1 g/dl (32-36); Mean Corpuscular Hemoglobin 42.2 pg (26-34); Mean Corpuscular Volume 120.3 fl (80-100); Mean Platelet Volume 10.3 fl (7.4-10.4); Monocytes Absolute Auto 0.4 K/mm3 (0.1-0.6); Monocytes Percent Auto 6.8 % (2.6-8.5); Neutrophils Percent Auto 57.9 % (45.5-73.1); Platelet Count Result 133 k/mm3 (150-375); Red Blood Count 2.51 M/mm3 (4.6-6.20); Red Cell Distribution Width 15.6 % (11.5-14.5); White Blood Count 5.1 K/mm3 (4.5-10.0)
[2020-02-19 05:46] LABS: Anion Gap 1 mmol/L (8-16); Blood Urea Nitrogen 11 mg/dL (9-20); Calcium 8.6 mg/dL (8.4-10.2); Carbon Dioxide 34 mmol/L (22-30); Chloride 101 mmol/L (98-107); Estimated CRCL calculation 84 ml/min; Estimated Glomerular Filt Rate > 60; Glucose 98 mg/dL (75-110); Magnesium 1.9 mg/dL (1.6-2.3); Potassium 3.7 mmol/L (3.4-5.0); Sodium 136 mmol/L (137-145)
[2020-02-19 06:00] VITALS: BP 124/84; PULSE 92; RESP 20; TEMP 36.6; O2SAT 94
[2020-02-19] MEDS: methADONE HCL (*CRX) 10 MG TABLET PO (08:17)
[2020-02-19] MEDS: THIAMINE HCL 100 MG TABLET PO (08:17)
[2020-02-19] MEDS: PANTOPRAZOLE 40 MG TABLET PO (08:17)
[2020-02-19 08:18] VITALS: PULSE 78
[2020-02-19] MEDS: METOPROLOL SUCCINATE EXT REL 25 MG TABCR PO (08:18)
--- NOTE | 2020-02-19 09:38 | PM.DS ---
DS: Admitting Diagnosis Admitting Diagnosis Admitting Diagnosis: Weakness. DS: Discharge Diagnosis Discharge Diagnosis (1) Acute kidney failure: Code(s): N17.9 - Acute kidney failure, unspecified Status: Resolved Assessment and Plan: Date of Admission: 02/13/20 Date of Discharge/DOS: 02/19/20 Mr. Melendrez is a 59yo M smoker with history of submassive pulmonary embolism in December 2018, paroxysmal atrial flutter, GERD and chronic pain syndrome who presented to the ED for evaluation of generalized weakness and malaise. He describes that he has been having issues with nausea and vomiting for the last few weeks. He had routine appoint with Dr. Fonseca the day of arrival and when he explained his ongoing symptoms, he was advised to present to the ED. He is noted to have a macrocytic anemia with thrombocytopenia. He was seen by GI, Dr. Salazar, and hematology, Dr. Su. He underwent EGD 02/[address] Salazar that revealed patchy erosive gastritis and he was started on protein pump inhibitor. He was noted to have acute kidney failure likely secondary to dehydration from vomiting, which improved with IV fluids. His rate was maintained on his oral metoprolol he was maintained on his long-term anticoagulation with Xarelto. He had a reactive hepatitis-C antibody, confirmatory testing with HCV RNA PCR was elevated. HIV negative. He will follow-up with Dr. Salazar for further management of hepatitis-C virus. He describes in the remote past, he would inject pain medications into his veins with his brother and he is unsure of the sterility of the needles they used and he feels this may have exposed him to hepatitis C. He no longer uses drugs in that capacity, per the patient. He was educated on the importance of abstaining from alcohol, as he is known to drink alcohol daily. His nausea and was treated supportively antiemetics and hydration and his symptoms improved. He was hemodynamically stable for discharge on 02/19/20 with instructions follow-up PCP and , and Dr. Su. (2) Hypokalemia: Code(s): E87.6 - Hypokalemia Status: Resolved Assessment and Plan: K initially low and replaced, likely secondary to GI loss. Resolved and K was stable at discharge. (3) Macrocytosis: Code(s): D75.89 - Other specified diseases of blood and blood-forming organs Status: Acute Assessment and Plan: Noted on previous labs. Thrombocytopenia is chronic also. May be related to liver disease (hep C RNA positive). Leukopenia is new and intermittent. B12, folate and TSH normal. Has a history of daily alcohol use. Does have splenic lesions felt to be granulomatous disease. MRI liver unremarkable. (4) Weight loss: Code(s): R63.4 - Abnormal weight loss Status: Acute Assessment and Plan: History is concerning for possible malignancy with DVT/PE last year and unintentional weight loss. EGD 02/[address] Salazar demonstrated gastritis. CXR clear. Colonoscopy and hematology outpatient work up planned. (5) Abnormal EKG: Code(s): R94.31 - Abnormal electrocardiogram [ECG] [EKG] Status: Acute Assessment and Plan: No chest pain. EKG showing ST-T wave changes mostly in the anterior leads. Trop negative x 3. Could have been related to hypokalemia. Repeat EKG showing persistent findings but improved. (6) History of atrial flutter: Code(s): Z86.79 - Personal history of other diseases of the circulatory system Status: Chronic Assessment and Plan: On Xarelto at home, resumed. Metoprolol resumed. (7) History of pulmonary embolism: Code(s): Z86.711 - Personal history of pulmonary embolism St
--- NOTE | 2020-02-19 11:46 | PM.PNCARD ---
Progress Note: A&P Assessment and Plan (1) Hypotension: Code(s): I95.9 - Hypotension, unspecified Status: Acute Assessment and Plan: Likely 2nd nausea, anorexia, dehydration. Improved (2) Nausea: Code(s): R11.0 - Nausea Status: Acute Assessment and Plan: May be related to the low blood pressure. He has had a 20-30 lb weight loss over the past 4 months so he may have other issues. (3) Weight loss: Code(s): R63.4 - Abnormal weight loss Status: Acute Assessment and Plan: 20-30 lb weight loss noted. (4) Abnormal EKG: Code(s): R94.31 - Abnormal electrocardiogram [ECG] [EKG] Status: Acute Assessment and Plan: Some slight ST depression noted anterolaterally. However, this is non-specific and may relate to his right ventricular strain. Troponin 0.019, 0.016, 0.016. No evidence of ACS. No ischemic symptoms. continue current med (5) Macrocytosis: Code(s): D75.89 - Other specified diseases of blood and blood-forming organs Status: Acute Assessment and Plan: Macrocytic indices, perhaps some liver disease related to his alcohol use or perhaps B12 or folate deficiency. B12 and folate levels are within normal limits. (6) Acute kidney failure: Code(s): N17.9 - Acute kidney failure, unspecified Status: Resolved Assessment and Plan: elevated BUN and creatinine noted. (7) Hypokalemia: Code(s): E87.6 - Hypokalemia Status: Resolved Assessment and Plan: replaced (8) History of pulmonary embolism: Code(s): Z86.711 - Personal history of pulmonary embolism Status: Chronic Assessment and Plan: History of multiple PEs in December 2018, on chronic therapy with Xarelto. he was in the chronic DVT /PE dose of 10 mg daily. Restart Xarelto (9) History of atrial flutter: Code(s): Z86.79 - Personal history of other diseases of the circulatory system Status: Chronic Assessment and Plan: History of atrial flutter noted in December 2018. Currently in normal sinus rhythm Subjective Date/time seen: 02/19/20 11:46 Interval history: Follow-up for: Hypotension, nausea, weight, abnormal EKG, PANDA, hypokalemia, hypomagnesemia, history of atrial flutter, history of pulmonary embolus Date of service: Subjective: Patient seen before discharge and was feeling well. no chest pain, shortness of breath, syncope Review of Systems Constitutional: Constitutional: Reports difficulty sleeping, Reports fatigue, Reports lethargy and Reports weakness Eyes: Eyes: Denies blurry vision ENT: Denies dysphagia, Reports vertigo, Denies epistaxis and Denies nasal congestion Cardiovascular: Cardiovascular: Denies chest pain, Denies leg edema ( Resolved), Reports lightheadedness, Denies palpitations and Reports dyspnea on exertion Respiratory: Respiratory: Denies hemoptysis, Reports dyspnea on exertion and Reports wheezing ( occasional wheezes) Gastrointestinal: Gastrointestinal: Denies abdominal pain, Denies melena, Denies hematochezia, Denies dysphagia, Reports diarrhea, Reports nausea ( With any movement) and Denies vomiting Genitourinary: Genitourinary: Denies hematuria and Denies dysuria Musculoskeletal: Musculoskeletal: Reports abnormal gait ( trouble walking because of dizziness) and Reports back pain Integumentary/Breasts: Skin/Breast: Reports erythema ( 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
[2020-02-19 15:47] LABS: ADAMTS-13 Activity 81 % Activity (68-163)
[2020-02-20 04:42] LABS: Methylmalonic Acid 337 nmol/L (87-318)
[2020-02-20 22:37] LABS: HCV Genotype, LiPA 1a
[2020-02-26 22:17] LABS: ALT 11 U/L (9-46); Alpha-2-Macroglobulin 90 mg/dL (106-279); Apolipoprotein A1 86 mg/dL (94-176); Fibrosis Score 0.29; Fibrosis Stage F1; GGT 9 U/L (3-85); Haptoglobin 26 mg/dL (43-212); Necroinflammat Act Grade A0
== END 2020-02-19 11:30 | disposition home or self-care (01) | DRG 241 ==
LOC: ANHED 20:00 → ANHIMU 20:04 → ANH3MEDSUR 02-17 08:46 → ANHIMU 02-21 12:43
PROVIDERS: Emergency Medicine; Internal Medicine Gastroenterology; Physician Assistant; Admitting Provider Internal Medicine; Emergency Provider Emergency Medicine; PCP Family Medicine Adolescent Medicine; Visit Provider Physician Assistant
PROC: 0DJ08ZZ Inspection of Upper Intestinal Tract, Via Natural or Artificial Opening Endoscopic (ICD-10-PCS; CPT 43235; principal; 2020-02-14 12:00)
DX: K29.70 Gastritis, unspecified, without bleeding (principal); N17.9 Acute kidney failure, unspecified; I95.9 Hypotension, unspecified; D69.6 Thrombocytopenia, unspecified; D53.9 Nutritional anemia, unspecified; B19.20 Unspecified viral hepatitis C without hepatic coma; Z23 Encounter for immunization; F10.10 Alcohol abuse, uncomplicated; E87.6 Hypokalemia; D75.89 Other specified diseases of blood and blood-forming organs; R63.4 Abnormal weight loss; K21.9 Gastro-esophageal reflux disease without esophagitis; R94.31 Abnormal electrocardiogram [ECG] [EKG]; I25.10 Atherosclerotic heart disease of native coronary artery without angina pectoris; K59.03 Drug induced constipation; T40.605A Adverse effect of unspecified narcotics, initial encounter; M54.9 Dorsalgia, unspecified; G89.4 Chronic pain syndrome; F17.210 Nicotine dependence, cigarettes, uncomplicated; I25.2 Old myocardial infarction; Z79.01 Long term (current) use of anticoagulants; Z79.899 Other long term (current) drug therapy; Z86.010 Personal history of colon polyps; Z86.711 Personal history of pulmonary embolism; Z86.718 Personal history of other venous thrombosis and embolism; Z86.79 Personal history of other diseases of the circulatory system
CPT/HCPCS: 36415; 70030; 71046; 74177; 74183; 76700; 80048; 80053; 80061; 80069; 80074; 80076; 81001; 81256; 81596; 82550; 82607; 82728; 82746; 83540; 83550; 83615; 83690; 83735; 83921; 84100; 84132; 84443; 84484; 85025; 85027; 85055; 85397; 85610; 86703; 87522; 88305; 90471; 90686; 93005; 96361; 96365; 96366; 96368; 97161; 97166; 99285; A9270; A9577; G0008; G0378; G0379; G0432; J2405; J2704; J3475; J3480; J7030; J7120; Q9967

== ENCOUNTER 2020-03-23 00:42 | Outpatient (CLI) | payer OTHER, SELFPAY ==
[2020-03-23 16:30] LABS: SARS-CoV-2 RNA PCR Negative
== END 2020-03-23 00:43 | disposition home or self-care (01) ==
LOC: ANHCOVIDDT 00:43
PROVIDERS: PCP Family Medicine Adolescent Medicine; Visit Provider Specialist
DX: Z01.812 Encounter for preprocedural laboratory examination (principal); Z20.828 Contact with and (suspected) exposure to other viral communicable diseases
CPT/HCPCS: 87635; C9803; U0003

== ENCOUNTER 2020-03-27 01:31 | Day surgery (SDC) | payer OTHER, SELFPAY ==
[2020-03-27] VITALS (17 sets, daily range): BP systolic 92–118; BP diastolic 62–82; PULSE 57–78; RESP 12–16; TEMP 36.4–37; O2SAT 90–100; BMI 29.3
[2020-03-27 11:07] LABS: Basophils Percent Auto 0.6 % (0.2-1.2); Eosinophils Absolute Auto 0.1 K/mm3 (0-0.3); Eosinophils Percent Auto 1.3 % (0-4.4); Hematocrit 36.8 % (42.0-52.0); Hemoglobin 12.8 g/dL (14.0-18.0); Immature Granulocyte Absolute 0.02 K/mm3 (0.00-0.031); Immature Granulocyte Percent A 0.3 % (0-0.5); Lymphocytes Absolute Auto 1.27 K/mm3 (0.9-3.2); Mean Corpuscular HGB Conc 34.8 g/dl (32-36); Mean Corpuscular Hemoglobin 42.4 pg (26-34); Mean Corpuscular Volume 121.9 fl (80-100); Mean Platelet Volume 9.6 fl (7.4-10.4); Monocytes Absolute Auto 0.4 K/mm3 (0.1-0.6); Monocytes Percent Auto 5.7 % (2.6-8.5); Neutrophils Absolute Auto 4.6 K/mm3 (1.3-6.7); Neutrophils Percent Auto 72.1 % (45.5-73.1); Nucleated Red Blood Cells Perc 0.5 % (0.0-0.2); Platelet Count Result 171 k/mm3 (150-375); Red Blood Count 3.02 M/mm3 (4.6-6.20); Red Cell Distribution Width 14.8 % (11.5-14.5); White Blood Count 6.3 K/mm3 (4.5-10.0)
[2020-03-27 11:17] LABS: INR 1.2; Prothrombin Time 15.1 Seconds (11.1-14.7)
[2020-03-27 11:23] LABS: Anion Gap 5.99999 mmol/L (8-16); Blood Urea Nitrogen 8 mg/dL (9-20); Calcium 8.6 mg/dL (8.4-10.2); Carbon Dioxide > 40 mmol/L (22-30); Chloride 91 mmol/L (98-107); Estimated CRCL calculation 74 ml/min; Estimated Glomerular Filt Rate > 60; Glucose 113 mg/dL (75-110); Potassium 2.8 mmol/L (3.4-5.0); Sodium 137 mmol/L (137-145)
[2020-03-27] MEDS: POTASSIUM CHLORIDE 20 MEQ TABLET 40 MEQ PO (11:40)
--- NOTE | 2020-03-27 14:07 | WPDMODSED ---
Moderate Sedation Note-Pt Data Patient Data Diagnosis: Symptoms of exertional dyspnea /fatigue abnormal nuclear stress test Present Complaint: patient with longstanding cigarette smoking but with no overt history of coronary disease. Reporting symptoms of exertional fatigue and occasional chest discomfort. Symptoms are largely atypical of angina. Nuclear stress testing has demonstrated evidence of an apical lateral reversible defect risk prompting the recommendation to perform an angiogram. He also has a history of significant pulmonary embolization last year and longstanding tobacco abuse. For these reasons pulmonary artery pressure determination was also requested therefore a right and left heart catheterization has been scheduled. Procedure to be performed/Plan: Right and left heart catheterization Allergies Allergy/AdvReac Type Severity Reaction Status Date / Time No Known Allergies Allergy Mild Verified 02/13/20 12:45 Home Medications Medication Instructions Recorded Confirmed Type methadone 10 mg PO DAILY 02/13/20 03/26/20 History metoprolol succinate 25 mg PO DAILY 02/13/20 03/26/20 History morphine 30 mg PO BID-TID PRN 02/13/20 03/26/20 History rivaroxaban 10 mg PO DAILY 02/13/20 03/26/20 History pantoprazole 40 mg PO Q12HR 30 Days #60 tablet 02/19/20 03/26/20 Rx ledipasvir 90 mg-sofosbuvir 400 mg 1 tablet PO DAILY 28 Days #28 02/27/20 Rx tablet tablet furosemide [Lasix] 20 mg PO DAILY 03/26/20 03/26/20 History mirtazapine 30 mg PO HS 03/26/20 03/26/20 History Current Medications: Active Medications Sodium Chloride (Normal Saline Iv) 500 mls @ 100 mls/hr IV CONT .Q5H PIO Potassium Chloride (Kcl 40 Meq/D5w 500 Ml Peripheral) 500 mls @ 125 mls/hr IVPB ONCE ONE Stop: 03/27/20 15:42 Last Admin: 03/27/20 12:12 Dose: 125 mls/hr Documented by: Sedation/Anesthesia: No previous sedation/anesthesia problems (including family history). [facility] Past Medical History Medical History (Updated 02/18/20 @ 16:20 by Janneth Lee PA-C) Alcohol abuse Angiomatosis Benign colon polyp Chronic back pain On long-term opioid therapy. Current use of terminal makeup operator anticoagulation Gastritis Gastroesophageal reflux disease Hepatitis C antibody positive in blood Left leg DVT (~12/2018) Macrocytic anemia Non-STEMI (non-ST elevated myocardial infarction) (~12/2018) Related to submassive pulmonary embolism. Paroxysmal atrial flutter Pulmonary embolism Pulmonary embolism with acute cor pulmonale (~12/2018) Scoliosis Thrombocytopenia Surgical History Surgical History (Updated 02/17/20 @ 17:11 by Ric Su MD) History of colonoscopy History of facial surgery Right orbit repair. History of orthopedic surgery Surgical fixation left tib-fib, right foot surgery. Family History Family History Father Heart disease age 68 of heart disease Mother Dementia age 94, had dementia Unknown Heart disease family history of heart disease, kidney disease, and possible pulmonary emboli Social History Social History (Updated 02/13/20 @ 19:55 by Sparkle Lares PA-C) Social History: The patient is single and lives in his own trailer in [place]. He has no children. He is retired, on disability, and used to work in maintenance. He smokes about half a pack of cigarettes per day. At 1 point time he drank 3D 8 alcoholic beverages a day, but for the last several months he has not been drinking much due to feeling poorly. He denies illicit substance use. He designates his friend, Aryan Yañez, as his surrogate decision maker and he wishes to be a full code. Smoking packs per day: 0.5 Smoking cigarettes per day: 10.0 Years smoked: 20 Smoking pack-years: 10.00 Smoking status: Current every day smoker Tobacco type: cigarettes Second hand tobacco smoke exposure: No Alcohol intake: current Drregina
--- NOTE | 2020-03-27 15:15 | WPDCARDPROC ---
Cardiac Cath Procedure Note Date of procedure:: 03/27/20 Performing physician:: Norberto Castro MD Indication:: abnormal nuclear stress test echocardiographic evidence of pulmonary hypertension previous pulmonary embolism Brief clinical history:: 59-year-old patient complaining of extreme exertional weakness and fatigue. Nuclear stress test suggested an apical lateral perfusion abnormality. The patient does have a history of significant pulmonary embolism last year. There is echocardiographic evidence to suggest pulmonary hypertension. For evaluation of the pulmonary artery pressure and coronary artery anatomy this procedure has been requested. Procedure Procedure performed:: Right left heart catheterization Sedation/Medication given:: fentanyl 50 mg Versed 2 mg sedation provided by Maggie Bliss RN, trained observer Access site:: right femoral artery, right femoral vein Estimated blood loss:: 15-20 cc Procedure note:: patient was brought to the cardiac catheterization lab in the postabsorptive state. The right femoral triangle was prepared and draped in usual fashion. Anesthesia was provided with 1% lidocaine infiltrated locally. Using the modified Seldinger technique I placed a 5 [place] vascular sheath in the right femoral artery and a 7 [place] sheath into the femoral vein. After this right heart catheterization was carried out of balloon tipped 6 S tip [place]-Stanislaw catheter was used to document right-sided hemodynamics and to measure thermodilution cardiac outputs. After this av O2 difference was sampled. The Parker Ford-Stanislaw catheter was then removed. A 5 [place] angled pigtail catheter was then placed into the arterial sheath and advanced over the guidewire into the left ventricle. Left ventricular hemodynamics were documented and then left ventriculography was done in the OZUNA projection. Following this pullback pressures were documented across the aortic valve. The pigtail catheter was then withdrawn. I then injected the left coronary artery in multiple projections using a standard 5 [place] FL4 catheter. The right coronary was injected using a standard 5 [place] JR4 catheter. The procedure was then terminated. The patient was taken to the holding area for manual sheath removal the procedure was well tolerated there were no apparent complications. Findings:: Hemodynamics: Right atrium 6 mmHg. Right ventricle 32 over 2 end-diastolic 6. Pulmonary artery pressure 32 over 16 pulmonary wedge pressure 9. Thermodilution cardiac output 3.43 liters/minute giving an index of 1.73 Yenni cardiac output 4.86 giving an index of 2.45. Central aortic pressure is 122/74 left ventricle 120/4 end-diastolic 10. There is no systolic gradient on pullback across the aortic valve. Left ventricle: The LV appears to be normal in size there is mild global hypocontractility identified. I would visually estimate the ejection fraction to be 45%. No regional wall motion abnormalities were seen. Left main coronary artery is widely patent the left anterior descending is a small to medium caliber extending to around the apex the LAD is small in caliber but smooth and angiographically normal. The circumflex is a medium caliber artery giving rise to the marginal branches this extends branches are smooth and angiographically normal. Right coronary artery is moderate caliber dominant to the posterior circulation the RCA is smooth and angiographically normal in appearance. Conclusion:: 1. Right coronary dominant circulation with no angiographic evidence of significant coronary artery disease 2. very mildly depressed left ventricular systolic dysfunction as described above 3. no significant elevation of pulmonary pressure Norberto Castro MD FACC
--- NOTE | 2020-03-27 16:14 | SUR.PHASEII ---
1548-firm pressure applied by Manuel Vaughn RN. D/Jon at 1613 for arterial. No evidence of bleeding or hematoma noted. Groin soft and non-tender. Moderate right pedal pulse noted. Will continue to monitor.
--- NOTE | 2020-03-27 18:25 | ADMGEN ---
This patient, Shantanu Melendrez, was admitted to IMU Room 202-01 at 1750 03/27/2020. Patient/family oriented to hospital policies and general routines including ID bracelet, bed and alarms, visiting hours, pain management, procedures, bathroom and other care routines, personal items, smoking policy, room service/diet, and visiting hours. Information on how to activate the Rapid Response Team has been discussed. Patient/Family are encouraged to report perceived risks to care and to ask questions if they do not understand what they are told or what they should do.
[2020-03-27] MEDS: SODIUM CHLORIDE 0.9% IV 1,000 ML 125 ML IV CONT (19:25)
== END 2020-03-27 21:34 | disposition home or self-care (01) ==
LOC: ANHCATHLAB 16:52 → ANHIMU 17:04
PROVIDERS: PCP Family Medicine Adolescent Medicine; Visit Provider Specialist
PROC: 4A023N8 Measurement of Cardiac Sampling and Pressure, Bilateral, Percutaneous Approach (ICD-10-PCS; CPT 93453; principal; 2020-03-27 11:30)
DX: R94.39 Abnormal result of other cardiovascular function study (principal); R06.09 Other forms of dyspnea; R53.83 Other fatigue; K21.9 Gastro-esophageal reflux disease without esophagitis; I25.2 Old myocardial infarction; I48.0 Paroxysmal atrial fibrillation; B19.20 Unspecified viral hepatitis C without hepatic coma; Z86.711 Personal history of pulmonary embolism; Z79.01 Long term (current) use of anticoagulants; F17.210 Nicotine dependence, cigarettes, uncomplicated
CPT/HCPCS: 36415; 80048; 85025; 85610; 93460; A9270; C1887; C1894; J1644; J2250; J3010; J3480; J7030; J7040

== ENCOUNTER 2020-09-11 12:52 | Outpatient (CLI) | payer MEDICARE, MEDICAID, SELFPAY ==
[2020-09-28 13:42] LABS: IGFBP-1 24
== END 2020-09-11 12:53 | disposition home or self-care (01) ==
LOC: ANHLAB 12:59
PROVIDERS: PCP Family Medicine Adolescent Medicine; Visit Provider Internal Medicine Cardiovascular Disease
DX: E22.0 Acromegaly and pituitary gigantism (principal)
CPT/HCPCS: 99199; 36415

== ENCOUNTER 2020-09-18 22:58 | Emergency (ER) | payer MEDICARE, MEDICAID, SELFPAY ==
--- NOTE | ~2020-09-18 | CT_ITS ---
EXAMINATION: CTA chest PE abdomen pel DATE: 09/19/2020 00:35 INDICATION: Abdominal pain. TECHNIQUE: Computed tomography angiography (CTA) of the chest was performed with 100 mL Omnipaque-350 intravenous contrast timed to evaluate the pulmonary arteries. Coronal maximum intensity projection 3D-reconstructions were created by the technologist. Computed tomography (CT) of the abdomen and pelv is was performed with intravenous contrast. Automated exposure control and iterative reconstruction t echnique were employed. The dose-length product was 1263.71 mGy-cm. COMPARISON: CT abdomen and pelvis 12/15/2019, chest CT 01/22/2019 FINDINGS: CTA chest: There is mild emphysema. There is mild atelectasis bilaterally. No pleural effusion. The h eart size is normal. No pericardial effusion. There are pulmonary emboli in the lower lobes bilateral ly. There is thoracic dextroscoliosis and mild spondylosis. There are old right rib fractures. CT abdomen and pelvis: Paraesophageal varices are noted. The liver and spleen are normal. There are m ultiple low-attenuation lesions in the spleen measuring up to 12 mm without change, likely granulomat ous disease. There is a small sliding hiatal hernia. There is mild wall thickening of the distal esop hagus. The pancreas, adrenal glands, and kidneys are normal. There is a large volume of stool in the colon, which is distended. The appendix is not visualized. There is mild fat stranding adjacent to th e ascending and transverse colon, consistent with inflammation. There are no pathologically enlarged lymph nodes. There is no free intraperitoneal fluid. There is a chronic 4.0 cm subcutaneous mass in r ight buttock, likely a sebaceous cyst. There is lumbar levoscoliosis and severe spondylosis. IMPRESSION: 1. Pulmonary emboli in the lower lobes. I called this result to Dr. Beach on 09/19/20 at 11:11 AM. 2. Small sliding hiatal hernia. Mild wall thickening of the distal esophagus, likely esophagitis. 3. Large volume of stool in the colon, which is distended and mildly inflamed. Reviewed, dictated and finalized at location A. IMPRESSION: 1. Pulmonary emboli in the lower lobes. I called this result to Dr. Beach on at 11:11 AM. 2. Small sliding hiatal hernia. Mild wall thickening of the distal esophagus, l ikely esophagitis. 3. Large volume of stool in the colon, which is distended and mildly inflamed.
[2020-09-18 23:05] VITALS: BP 115/73; PULSE 87; RESP 12; TEMP 36.1; O2SAT 97
[2020-09-18 23:44] LABS: Basophils Percent Auto 0.2 % (0.2-1.2); Eosinophils Percent Auto 0.5 % (0-4.4); Hematocrit 36.5 % (42.0-52.0); Hemoglobin 12.9 g/dL (14.0-18.0); Immature Granulocyte Absolute 0.03 K/mm3 (0.00-0.031); Immature Granulocyte Percent A 0.4 % (0-0.5); Lymphocytes Absolute Auto 0.92 K/mm3 (0.9-3.2); Lymphocytes Percent Auto 11.2 % (18.3-44.2); Mean Corpuscular HGB Conc 35.3 g/dl (32-36); Mean Corpuscular Hemoglobin 42.7 pg (26-34); Mean Corpuscular Volume 120.9 fl (80-100); Mean Platelet Volume 8.8 fl (7.4-10.4); Monocytes Absolute Auto 0.4 K/mm3 (0.1-0.6); Monocytes Percent Auto 4.5 % (2.6-8.5); Neutrophils Absolute Auto 6.9 K/mm3 (1.3-6.7); Neutrophils Percent Auto 83.2 % (45.5-73.1); Platelet Count Result 157 k/mm3 (150-375); Red Blood Count 3.02 M/mm3 (4.6-6.20); White Blood Count 8.3 K/mm3 (4.5-10.0)
[2020-09-18 23:49] LABS: Alanine Aminotransferase 11 U/L (4-50); Alkaline Phosphatase 102 U/L (38-126); Anion Gap 4 mmol/L (8-16); Aspartate Amino Transferase 32 U/L (17-59); Blood Urea Nitrogen 11 mg/dL (9-20); Calcium 8.2 mg/dL (8.4-10.2); Carbon Dioxide 34 mmol/L (22-30); Chloride 100 mmol/L (98-107); Estimated Glomerular Filt Rate > 60; Glucose 101 mg/dL (75-110); Lipase 92 U/L (23-300); Potassium 4.2 mmol/L (3.4-5.0); Sodium 138 mmol/L (137-145)
[2020-09-19] VITALS (9 sets, daily range): BP systolic 100–125; BP diastolic 73–90; PULSE 86–119; RESP 12–22; TEMP 36.1–37; O2SAT 97–99
--- NOTE | 2020-09-19 00:09 | PC.NURSE ---
EDMD presented to bedside.
--- NOTE | 2020-09-19 00:10 | PC.NURSE ---
Pt presents to ED with complaints of nausea and emesis for a couple of hours . Pt denies fevers, chills, chest pain and sob at this time. Pt states he feels bad and vomit x2 kidney puller. Pt noted to be alert and oriented x4. Breathing is even and unlabored and vitals are stable. Pt denies being ill recently and also denies sick contacts. Pt repeating that he feels bad and does not feel like moving in bed. Pt states he was in a bar drinking with friends when pain onset. Pt admits to daily drinking and states he had 5-6 glasses of vodka and orange juice kidney puller. Diffuse pain noted with palpation of abdomen. Pt denies pain while at rest. Pt in no obvious distress at this time. Call button and personal items within reach. Advised to press call button for assistance.
--- NOTE | 2020-09-19 00:11 | ECG_ITS ---
Measurements Intervals [place] Rate: 98 P: 75 DE: 156 QRS: 67 QRSD: 84 T: 56 QT: 354 QTc: 452 Interpretive Statements SINUS RHYTHM INCOMPLETE RIGHT BUNDLE BRANCH BLOCK BASELINE ARTIFACT- V5-V6 BORDERLINE ECG Electronically Signed On 09-19-2020 11:59:49 CDT by Rickey Duong D.O.
--- NOTE | 2020-09-19 00:23 | PC.NURSE ---
Pt to radiology via cart.
[2020-09-19] MEDS: SODIUM CHLORIDE 0.9% IV 1,000 ML 999 ML IV CONT (00:38)
[2020-09-19] MEDS: ONDANSETRON INJ 4 MG/2 ML VIAL IV PUSH (00:38)
--- NOTE | 2020-09-19 00:38 | PC.NURSE ---
Pt returned from radiology and is resting on cart in its lowest position with call button and personal items within reach. Pt remains alert and oriented x4 and pt in no obvious distress at this time. Call button and personal items within reach. Pt advised to press call button for assistance.
--- NOTE | 2020-09-19 01:20 | ED.GENADULT ---
HPI - General Adult General Chief complaint: Nausea/Vomiting/Diarrhea Stated complaint: nausea/vomiting Time Seen by Provider: 09/19/20 00:07 History of Present Illness HPI narrative: Patient 59-year-old gentleman who presents the emergency department with chief complaint of feels bad. Patient reports he has prior history of a pulmonary embolism and reports that he is felt nauseated and is felt uncomfortable in his abdomen. Patient states that he just feels unwell and is very nonspecific in his answers. The patient denies chest pain denies shortness of breath. The patient reports he feels weaker than normal and states that he just wants to lay in bed and sleep Related Data Home Medications Medication Instructions Recorded Confirmed methadone 10 mg PO DAILY PRN 02/13/20 07/30/20 metoprolol succinate 25 mg PO DAILY 02/13/20 07/30/20 morphine 30 mg PO BID-TID PRN 02/13/20 07/30/20 rivaroxaban 10 mg PO DAILY 02/13/20 07/30/20 furosemide [Lasix] 20 mg PO DAILY 03/26/20 07/30/20 mirtazapine 30 mg PO HS 03/26/20 07/30/20 Allergies Allergy/AdvReac Type Severity Reaction Status Date / Time No Known Allergies Allergy Mild Verified 07/30/20 11:37 Review of Systems Review of Systems: Narrative: A 10 system review of systems was completed on the patient and is negative except for what is stated in the HPI. Nursing and ancillary documentation was reviewed. [facility] Past Medical History Medical History Alcohol abuse Angiomatosis Benign colon polyp Chronic back pain On long-term opioid therapy. Constipation Current use of [facility] anticoagulation Gastritis Gastroesophageal reflux disease Hepatitis C Hepatitis C antibody positive in blood Left leg DVT (~12/2018) Macrocytic anemia Non-STEMI (non-ST elevated myocardial infarction) (~12/2018) Related to submassive pulmonary embolism. Paroxysmal atrial flutter Pulmonary embolism Pulmonary embolism with acute cor pulmonale (~12/2018) Scoliosis Thrombocytopenia Surgical History Surgical History History of colonoscopy History of facial surgery Right orbit repair. History of orthopedic surgery Surgical fixation left tib-fib, right foot surgery. Family History Family History Father Heart disease age 68 of heart disease Mother Dementia age 94, had dementia Unknown Heart disease family history of heart disease, kidney disease, and possible pulmonary emboli Social History Social History Social History: The patient is single and lives in his own trailer in [place]. He has no children. He is retired, on disability, and used to work in maintenance. He smokes about half a pack of cigarettes per day. At 1 point time he drank 3D 8 alcoholic beverages a day, but for the last several months he has not been drinking much due to feeling poorly. He denies illicit substance use. He designates his friend, Aryan Yañez, as his surrogate decision maker and he wishes to be a full code. Smoking packs per day: 1 Smoking cigarettes per day: 20.0 Years smoked: 30 Smoking pack-years: 30.00 Smoking status: Current every day smoker Tobacco type: cigarettes Second hand tobacco smoke exposure: No Alcohol intake: current Drinks per week: 21 Substance use: current Substance use type: marijuana Last use: 07/29/20 Gender identity (if verbalized by the patient): Male Spiritual care concerns: No Exam Narrative: Exam Narrative: GENERAL: Well-appearing, well-nourished, and in no acute distress. HEAD: Normocephalic, atraumatic. EYES: PERRLA and EOMI. ENT: Nares clear, no rhinorrhea or epistaxis. Mucous membranes moist. NECK: Supple. CHEST: Clear to auscultation. No re
[2020-09-19 01:26] LABS: Ethanol 136 mg/dL (<10)
[2020-09-19 01:37] LABS: NT Pro B Type Natriuretic Pept 407 pg/mL (5-100); Troponin I < 0.012 ng/mL (0.000-0.034)
[2020-09-19 01:44] LABS: Add Urine Microscopic? YES; Appearance Urine Clear (Clear); Bacteria Urine Trace /hpf; Bilirubin Urine Negative (Negative); Blood Urine Negative (Negative); Color Urine Yellow (Yellow); Glucose Urine UA Negative (Negative); Ketones Urine Negative (Negative); Leukocyte Esterase Ur Negative LEU/UL (Negative); Nitrate Urine Negative (Negative); Protein Urine Negative (Negative); RBC Urine 0-2 /hpf (0-2); Specific Grav Ur 1.014 (1.001-1.035); WBC Urine 0-3 /hpf
== END 2020-09-19 05:32 | disposition home or self-care (01) ==
PROVIDERS: Emergency Medicine; Emergency Provider Emergency Medicine; PCP Family Medicine Adolescent Medicine
DX: K52.9 Noninfective gastroenteritis and colitis, unspecified (principal); K21.9 Gastro-esophageal reflux disease without esophagitis; D53.9 Nutritional anemia, unspecified; I25.2 Old myocardial infarction; I48.92 Unspecified atrial flutter; Z86.711 Personal history of pulmonary embolism; Z86.19 Personal history of other infectious and parasitic diseases; Z79.01 Long term (current) use of anticoagulants; Z86.010 Personal history of colon polyps; F17.210 Nicotine dependence, cigarettes, uncomplicated; I45.10 Unspecified right bundle-branch block; K44.9 Diaphragmatic hernia without obstruction or gangrene; R93.3 Abnormal findings on diagnostic imaging of other parts of digestive tract; I26.99 Other pulmonary embolism without acute cor pulmonale; Z79.899 Other long term (current) drug therapy
CPT/HCPCS: 36415; 71275; 74177; 80053; 80307; 81001; 83690; 83880; 84484; 85025; 93005; 96361; 96374; 99284; J2405; J7030; Q9967

== ENCOUNTER 2020-09-19 08:33 | Observation (INO) | payer MEDICARE, MEDICAID, SELFPAY ==
[2020-09-19] VITALS (15 sets, daily range): BP systolic 90–134; BP diastolic 72–88; PULSE 90–120; RESP 15–20; TEMP 36.5–37.4; O2SAT 92–100; BMI 25.9
--- NOTE | 2020-09-19 09:39 | PC.NURSE ---
Patient noted to be 86% on room air, placed on 2 Li NC at this time. Currently 98% with oxygen in place.
[2020-09-19] MEDS: ONDANSETRON HCL ODT 4 MG TABLET 8 MG PO (09:59)
--- NOTE | 2020-09-19 10:25 | PC.NURSE ---
Patient removed from oxygen and currently 97% on room air when speaking.
[2020-09-19 10:51] LABS: Basophils Percent Auto 0.3 % (0.2-1.2); Hematocrit 35.6 % (42.0-52.0); Hemoglobin 12.7 g/dL (14.0-18.0); Immature Granulocyte Absolute 0.04 K/mm3 (0.00-0.031); Immature Granulocyte Percent A 0.3 % (0-0.5); Lymphocytes Absolute Auto 0.26 K/mm3 (0.9-3.2); Lymphocytes Percent Auto 2.2 % (18.3-44.2); Mean Corpuscular HGB Conc 35.7 g/dl (32-36); Mean Corpuscular Hemoglobin 42.8 pg (26-34); Mean Corpuscular Volume 119.9 fl (80-100); Mean Platelet Volume 8.9 fl (7.4-10.4); Monocytes Absolute Auto 0.7 K/mm3 (0.1-0.6); Neutrophils Absolute Auto 10.6 K/mm3 (1.3-6.7); Neutrophils Percent Auto 91.2 % (45.5-73.1); Platelet Count Result 156 k/mm3 (150-375); Red Blood Count 2.97 M/mm3 (4.6-6.20); White Blood Count 11.6 K/mm3 (4.5-10.0)
[2020-09-19] MEDS: SODIUM CHLORIDE 0.9% IV 1,000 ML 999 ML IV CONT (10:51)
[2020-09-19 10:59] LABS: Ammonia < 9 umol/L (9-30)
[2020-09-19 11:00] LABS: Alanine Aminotransferase 11 U/L (4-50); Albumin Level 2.7 g/dL (3.5-5.1); Alkaline Phosphatase 94 U/L (38-126); Anion Gap 1 mmol/L (8-16); Aspartate Amino Transferase 27 U/L (17-59); Bilirubin,Total 1.4 mg/dL (0.2-1.3); Blood Urea Nitrogen 16 mg/dL (9-20); Carbon Dioxide 33 mmol/L (22-30); Chloride 103 mmol/L (98-107); Estimated CRCL calculation 81 ml/min; Estimated Glomerular Filt Rate > 60; Glucose 123 mg/dL (75-110); Potassium 4.1 mmol/L (3.4-5.0); Sodium 137 mmol/L (137-145)
[2020-09-19 11:31] LABS: INR 1.5; Prothrombin Time 18.6 Seconds (11.1-14.7)
[2020-09-19 11:32] LABS: Partial Thromboplastin Time 31.1 SECONDS (22.3-36.8)
--- NOTE | 2020-09-19 11:43 | ED.GENADULT ---
HPI - General Adult General Chief complaint: Unspecified Stated complaint: No Ride Home, Wants To Rest Time Seen by Provider: 09/19/20 09:01 Source: patient Mode of arrival: ambulatory Limitations: no limitations History of Present Illness HPI narrative: This is a 59 year old male with history of multiple medical problems who presents to ER for not feeling well. He was evaluated in ER a few hours ago for nausea, vomiting and diarrhea. He has labs with CT chest/abdomen/pelvis. He was discharged with diagnosis of gastroenteritis as no significant findings were found by [facility]. Patient was in the waiting room, and he did not want to call for a ride home so he checked back in. He reports he had 2 episodes of emesis in waiting room. He was also found to have ETOH in his system. He denies history of alcohol withdrawals. Related Data Home Medications Medication Instructions Recorded Confirmed metoprolol succinate 25 mg PO DAILY 02/13/20 09/19/20 morphine 30 mg PO BID-TID PRN 02/13/20 09/19/20 rivaroxaban 10 mg PO DAILY 02/13/20 09/19/20 furosemide [Lasix] 20 mg PO DAILY PRN 03/26/20 09/19/20 linaclotide [Linzess] 145 mcg PO DAILY PRN 09/19/20 09/19/20 mirtazapine 30 mg PO HS 09/19/20 09/19/20 promethazine 25 mg PO TID PRN 09/19/20 09/19/20 Allergies Allergy/AdvReac Type Severity Reaction Status Date / Time No Known Allergies Allergy Mild Verified 09/19/20 14:13 Review of Systems Review of Systems: All systems reviewed & are unremarkable except as noted in HPI and below Cardiovascular: Cardiovascular: Denies chest pain and Denies dyspnea Respiratory: Respiratory: Denies hemoptysis and Denies dyspnea Gastrointestinal: Gastrointestinal: Denies abdominal pain and Reports diarrhea PMFSH Past Medical History Medical History (Updated 09/19/20 @ 16:47 by Aidee Satnos NP) Alcohol abuse Angiomatosis Benign colon polyp Chronic back pain On long-term opioid therapy. Constipation Current use of [facility] anticoagulation Gastritis Gastroesophageal reflux disease Hepatitis C The patient stated that he was supposed to start treatment but the insurance would not pay for the medication. Hepatitis C antibody positive in blood HTN (hypertension), malignant Left leg DVT (~12/2018) Macrocytic anemia Non-STEMI (non-ST elevated myocardial infarction) (~12/2018) Related to submassive pulmonary embolism. Paroxysmal atrial flutter Pulmonary emboli Pulmonary embolism Pulmonary embolism with acute cor pulmonale (~12/2018) Scoliosis Thrombocytopenia Surgical History Surgical History History of colonoscopy History of facial surgery Right orbit repair. History of orthopedic surgery Surgical fixation left tib-fib, right foot surgery. Family History Family History Father Heart disease age 68 of heart disease Mother Dementia age 94, had dementia Unknown Heart disease family history of heart disease, kidney disease, and possible pulmonary emboli Social History Social History (Updated 09/19/20 @ 16:48 by Aidee Santos NP) Social History: The patient is single and lives in his own trailer in [place]. He has no children. He is retired, on disability, and used to work in maintenance. He smokes about half a pack of cigarettes per day. At 1 point time he drank 3- 8 alcoholic beverages a day, but for the last several months he has not been drinking much due to feeling poorly. He denies illicit substance use. He designates his friend, Aryan Yañez, as his surrogate decision maker and he wishes to be a full code. Smoking packs per day: 0.5 Smoking cigarettes per day: 10.0 Years smoked: 30 Smoking pack-years: 15.00 Smoking status: Current every day smoker Tobacco type: cigarettes Second hand tobacco smoke exposure: No Alcohol intake
[2020-09-19] MEDS: ENOXAPARIN 80 MG/0.8 ML SYRINGE SUB-Q (11:56)
--- NOTE | 2020-09-19 13:10 | ADMGEN ---
This patient, Shantanu Melendrez, was admitted to 2 Medical Room 240-01. Patient/family oriented to hospital policies and general routines including ID bracelet, bed and alarms, visiting hours, pain management, procedures, bathroom and other care routines, personal items, smoking policy, room service/diet, and visiting hours. Information on how to activate the Rapid Response Team has been discussed. Patient/Family are encouraged to report perceived risks to care and to ask questions if they do not understand what they are told or what they should do.
--- NOTE | 2020-09-19 16:19 | PM.IMHP ---
H&P: HPI History of Present Illness Date/Time: 09/19/20 16:19 this is a 59-year-old male patient who lives home alone. The patient has a history of having a DVT and a PE. The patient stated that he initially was on Eliquis but the insurance would not pay so he was switched to Xarelto the patient tells me that he has been taking his medications as prescribed. He has chronic back pain and is on routine morphine. The patient stated he was at a friend's house last night he just did not feel right he did know what was wrong but he just did not feel right. all of a sudden he felt ill. His friend then took him home. He said he still did not feel right. The patient called the ambulance and came to the emergency room earlier this morning. The patient stated he vomited while waiting for the ambulance. The patient had been discharged home with a diagnosis of gastroenteritis with no significant findings were found by [facility]. The patient was in the waiting room any City laid across some chairs any drink some water out of the found vomited again. He had to emesis in the emergency room. The patient was then brought back into the emergency room because he felt like he could not go home. The patient denies any history of alcohol withdrawals. The patient drinks anywhere from 3-8 drinks a day. He typically takes routine MS Contin. Abdomen pelvis was read as pulmonary emboli in the lower lobes. Small sliding hiatal hernia. Mild wall thickening of the distal esophagus likely soft as. Large volume of stool in the colon which is distended and mildly inflamed. The patient was given Zofran, IV fluids, and subcu Lovenox. When questioned the patient he stated that he has been taken his Xarelto. The patient is being admitted for observation status on the date of service of 09/19/2020. Chief Complaint: Nausea vomiting Review of Systems Review of Systems: All systems reviewed & are unremarkable except as noted in HPI and below Constitutional: Constitutional: Reports as per HPI and Reports no additional constitutional complaints Eyes: Eyes: Reports as per HPI and Reports no additional eye complaints ENT: Reports system reviewed and no additional complaints, except as documented and Reports Normal hearing present Cardiovascular: Cardiovascular: Reports no additional cardiovascular complaints Respiratory: Respiratory: Reports no additional respiratory complaints and Reports no additional respiratory complaints Gastrointestinal: Gastrointestinal: Reports as per HPI and Reports no additional gastrointestinal complaints Musculoskeletal: Musculoskeletal: Reports no additional musculoskeletal complaints Integumentary/Breasts: Skin/Breast: Reports system reviewed and no additional complaints, except as docu and Reports as per HPI Neurologic: Reports system reviewed and no additional complaints, except as documented, Reports as per HPI and Reports Normal hearing present Psychiatric: Psychiatric: Reports no additional psychiatric complaints and Reports as per HPI Endocrine: Endocrine: Reports no additional endocrine complaints Hematologic/Lymphatic: Hematologic/Lymphatic: Reports no additional hematologic/lymphatic complaints Allergic/Immunologic: Allergic/Immunologic: Reports no additional allergic/immunologic complaints [facility] Past Medical History Medical History (Updated 09/19/20 @ 16:47 by Aidee Santos NP) Alcohol abuse Angiomatosis Benign colon polyp Chronic back pain On long-term opioid therapy. Constipation Current use of snf anticoagulation Gastritis Gastroesophageal reflux disease Hepatitis C The patient stated that he was supposed to start treatment but the insurance would not pay for the medication. Hepatitis C antibody positive in blood HTN (hypertension), malignant Left leg DVT (~12/2018) Macrocytic anemia Non-STEMI (non-ST elevated myocardial infarction) (~12/2018) Related to submassive pulmonary embolism. Paroxysm
[2020-09-19] MEDS: LACTATED RINGERS 1,000 ML 50 ML IV CONT (16:48)
[2020-09-19] MEDS: FAMOTIDINE 20 MG/2 ML VIAL IV PUSH ×2 (16:51→21:10)
[2020-09-19] MEDS: MORPHINE SULFATE (*CRX) 2 MG/ML INJ IV PUSH ×2 (16:52→21:14)
--- NOTE | 2020-09-19 17:02 | PC.NURSE ---
pt's home meds secured in home med bin in med room, 19 morphine tabs counted and secured in safe
--- NOTE | 2020-09-19 21:10 | PC.NURSE ---
Spoke with pt as I was giving his medications at 2100 that he would be taking a lovenox shot at 11pm for his PE. He absolutely refused said I would have to have people hold him down to give him that shot. Told him we would not hold him down. Lovenox was needed for treatment of PE. Wanted to know why he couldn't just take xaralto. Told him I would speak with the hospitalist and see if there was something else we could do. Explained his risk of from a blood clot to the lungs at that it was very important. Spoke with Aidee Santos. She said she could not give him anything else they needed to find out about Eliquis. Awaiting information from insurance company. She said that Lovenox could not be changed at this time. Explained this to pt along with risks to his health. Told him I would give him time to think about it. His shot wasn't due until 11. Pt then stated that he could tell me now that he was going to refuse it. Told him medication is still ordered and I will ask him again later.
[2020-09-20] VITALS (8 sets, daily range): BP systolic 112–121; BP diastolic 71–73; PULSE 80–91; RESP 16–18; TEMP 36.1–36.2; O2SAT 97
--- NOTE | 2020-09-20 | PCDIET ---
Spoke with pt again regarding Lovenox shot. Offered to give him ice to the area after the shot. He refused again. Explained risks again. Pt still refused Lovenox shot. Notified Dr. Azeveod that pt refused Lovenox shot despite education and reattempts.
--- NOTE | 2020-09-20 | PC.NURSE ---
Pt refused Lovenox shot again he was offered ice to area. He still refused. Informed him of his risk to his life. Still refused. Notifed Dr. Azevedo of pt refusing Lovenox despite multiple attempts to give and multiple attempts to educate.
[2020-09-20] MEDS: MORPHINE SULFATE (*CRX) 2 MG/ML INJ IV PUSH (04:04)
[2020-09-20 05:14] LABS: Basophils Percent Auto 0.2 % (0.2-1.2); Eosinophils Percent Auto 0.5 % (0-4.4); Hematocrit 28.9 % (42.0-52.0); Hemoglobin 10.4 g/dL (14.0-18.0); Immature Granulocyte Absolute 0.02 K/mm3 (0.00-0.031); Immature Granulocyte Percent A 0.3 % (0-0.5); Lymphocytes Absolute Auto 0.93 K/mm3 (0.9-3.2); Lymphocytes Percent Auto 14.7 % (18.3-44.2); Mean Corpuscular Hemoglobin 42.3 pg (26-34); Mean Corpuscular Volume 117.5 fl (80-100); Mean Platelet Volume 9.5 fl (7.4-10.4); Monocytes Absolute Auto 0.3 K/mm3 (0.1-0.6); Monocytes Percent Auto 5.4 % (2.6-8.5); Neutrophils Percent Auto 78.9 % (45.5-73.1); Platelet Count Result 124 k/mm3 (150-375); Red Blood Count 2.46 M/mm3 (4.6-6.20); Red Cell Distribution Width 17.5 % (11.5-14.5); White Blood Count 6.3 K/mm3 (4.5-10.0)
[2020-09-20 05:28] LABS: Alanine Aminotransferase 8 U/L (4-50); Albumin Level 2.2 g/dL (3.5-5.1); Alkaline Phosphatase 67 U/L (38-126); Anion Gap -4 mmol/L (8-16); Aspartate Amino Transferase 21 U/L (17-59); Bilirubin,Total 1.4 mg/dL (0.2-1.3); Blood Urea Nitrogen 15 mg/dL (9-20); Calcium 7.7 mg/dL (8.4-10.2); Carbon Dioxide 32 mmol/L (22-30); Chloride 108 mmol/L (98-107); Estimated CRCL calculation 81 ml/min; Estimated Glomerular Filt Rate > 60; Glucose 94 mg/dL (75-110); Lipase 26 U/L (23-300); Magnesium 2.1 mg/dL (1.6-2.3); Phosphorus 2.9 mg/dL (2.5-4.5); Potassium 3.5 mmol/L (3.4-5.0); Sodium 136 mmol/L (137-145)
[2020-09-20] MEDS: THIAMINE HCL 200 MG/2 ML VIAL 100 MG IV PUSH (08:01)
[2020-09-20] MEDS: FAMOTIDINE 20 MG/2 ML VIAL IV PUSH (08:01)
[2020-09-20] MEDS: FOLIC ACID 1 MG/0.2 ML INJ IV PUSH (08:03)
[2020-09-20] MEDS: MORPHINE SULFATE (*CRX) 30 MG TABCR PO ×2 (09:45→17:45)
[2020-09-20] MEDS: RIVAROXABAN 10 MG TABLET PO (14:16)
--- NOTE | 2020-09-20 16:57 | PM.DS ---
DS: Admitting Diagnosis Admitting Diagnosis Admitting Diagnosis: gastroenteritis DS: Discharge Diagnosis Discharge Diagnosis (1) Alcohol abuse: Code(s): F10.10 - Alcohol abuse, uncomplicated Status: Acute Assessment and Plan: CIWA susanna. Librium, folic acid and thiamin. P.r.n. Ativan. (2) History of pulmonary embolism: Code(s): Z86.711 - Personal history of pulmonary embolism Status: Chronic Assessment and Plan: The patient stated that he had been on Eliquis in the past but his insurance would not pay for it. He states that he has been actively taking the Xarelto. I am not sure if these PEs are old or if they are new. Will do subcu Lovenox for now. (3) Hepatitis C antibody positive in blood: Code(s): R76.8 - Other specified abnormal immunological findings in serum Status: Acute Assessment and Plan: Patient stated that he was supposed to start taking pills but his insurance would not pay for it is 80 not get any treatment. (4) Chronic back pain: Code(s): M54.9 - Dorsalgia, unspecified; G89.29 - Other chronic pain Status: Chronic Assessment and Plan: Patient takes MS Contin at home. Will do IV morphine since he is NPO. Patient has scoliosis. I asked the patient if he had morfans and he stated that he was never diagnosed with that. (5) HTN (hypertension), malignant: Code(s): I10 - Essential (primary) hypertension Status: Chronic Assessment and Plan: Patient has been on metoprolol. And Lasix. However his blood pressure is low at this time. Patient most likely is dehydrated from vomiting and diarrhea. (6) Constipation: Code(s): K59.00 - Constipation, unspecified Status: Chronic Assessment and Plan: Large volumes of stool in the colon. We will do and o'clock suppository at this time. DS: Summary Hospital Course Hospital Course: Mr. Melendrez is a 59 yo man with a PMH significant for GERD and ETOH who presented to the ED on 09/19/20 with N/V and was found with gastroenteritis. He was d/c'd home, however, he had not called a ride. He was then evaluated again for the same symptoms and reports 2 episodes of emesis in the ED waiting room. He was admitted to the hospitalist service to [facility] for gastroenteritis. He reported ETOH use but denied any history of withdrawals. The patient is medically stable for discharged. He is tolerating a regular diet and his CIWA score has been 0-1. He has been instructed to f/u with his PCP within 10-14 days. Time Spent with Patient Time attestation: Total time spent providing and/or coordinating discharge services: 50 min Exam Const: General: cooperative, healthy appearing, comfortable, no acute distress, well developed, alert, awake and Physically active Nutritional Appearance: average body habitus and thin Orientation/consciousness: oriented to person, oriented to place, oriented to time and patient oriented x3 Limitations: no limitations HENMT: Head: normal to inspection, No palpable skull fracture present, normocephalic and atraumatic Ears: hearing grossly normal bilaterally and external ears normal General nose exam: Normal external nose present, Normal nares present and No nasal polyps present Eyes: General: appearance normal, both eyes and all related structures Alignment and Position: alignment normal Periorbital: periorbital findings normal Eyelids: eyelids normal Conjunctivae: conjunctivae normal Sclera: sclerae normal Cornea: corneas normal Pupils: Equal, round and reactive pupils present and Pupil accommodation reflex normal EOM: EOMs intact bilaterally Neck: Neck: normal visual inspection, full ROM, no lymphadenopathy, trachea midline and supple Thyroid: thyroid normal Carotids: normal carotid upstroke Lymphatic: no lymphadenopathy noted Chest: Chest palpation & inspection: normal inspection of the chest Resp: Effort & Inspection: normal respiratory effort Auscult
--- NOTE | 2020-09-20 17:30 | PM.IMPN ---
Progress Note: A&P Assessment and Plan (1) Alcohol abuse: Code(s): F10.10 - Alcohol abuse, uncomplicated Status: Acute Assessment and Plan: CIWA scores 0-1 Librium, folic acid and thiamin. P.r.n. Ativan (2) History of pulmonary embolism: Code(s): Z86.711 - Personal history of pulmonary embolism Status: Chronic Assessment and Plan: The patient stated that he had been on Eliquis in the past but his insurance would not pay for it. He states that he has been actively taking the Xarelto. I am not sure if these PEs are old or if they are new. Will do subcu Lovenox for now. (3) Hepatitis C antibody positive in blood: Code(s): R76.8 - Other specified abnormal immunological findings in serum Status: Acute Assessment and Plan: Patient stated that he was supposed to start taking pills but his insurance would not pay for it is 80 not get any treatment (4) Chronic back pain: Code(s): M54.9 - Dorsalgia, unspecified; G89.29 - Other chronic pain Status: Chronic Assessment and Plan: Patient takes MS Contin at home. Will do IV morphine since he is NPO. Patient has scoliosis. I asked the patient if he had morfans and he stated that he was never diagnosed with that. (5) HTN (hypertension), malignant: Code(s): I10 - Essential (primary) hypertension Status: Chronic Assessment and Plan: Patient has been on metoprolol. And Lasix. However his blood pressure is low at this time. Patient most likely is dehydrated from vomiting and diarrhea. (6) Constipation: Code(s): K59.00 - Constipation, unspecified Status: Chronic Assessment and Plan: Large volumes of stool in the colon. We will do and o'clock suppository at this time. Subjective Date/time seen: 09/20/20 17:30 Pt seen and evaluated; he tells me he has no appetite; no N/V Exam Const: General: cooperative, healthy appearing, comfortable, no acute distress, well developed, alert, awake and Physically active Nutritional Appearance: average body habitus and thin Orientation/consciousness: oriented to person, oriented to place, oriented to time and patient oriented x3 Limitations: no limitations HENMT: Head: normal to inspection, No palpable skull fracture present, normocephalic and atraumatic Ears: hearing grossly normal bilaterally and external ears normal General nose exam: Normal external nose present, Normal nares present and No nasal polyps present Eyes: General: appearance normal, both eyes and all related structures Alignment and Position: alignment normal Periorbital: periorbital findings normal Eyelids: eyelids normal Conjunctivae: conjunctivae normal Sclera: sclerae normal Cornea: corneas normal Pupils: Equal, round and reactive pupils present and Pupil accommodation reflex normal EOM: EOMs intact bilaterally Neck: Neck: normal visual inspection, full ROM, no lymphadenopathy, trachea midline and supple Thyroid: thyroid normal Carotids: normal carotid upstroke Lymphatic: no lymphadenopathy noted Chest: Chest palpation & inspection: normal inspection of the chest Resp: Effort & Inspection: normal respiratory effort Auscultation: clear to auscultation bilaterally Percussion: percussion normal Cardio: Palpation: normal PMI Rate: regular rate Rhythm: regular rhythm Heart sounds: S1 normal heart sound present and S2 normal heart sound present Peripheral pulses: Peripheral pulses 2+ throughout GI: Inspection: normal to inspection Auscultation: normal bowel sounds Rectal Exam: deferred Skin: General skin exam: normal color Lesions: no lesions Rashes: no rashes Trauma: no lacerations or abrasions Wounds: no wounds Hair: normal Nails: normal Neuro: General: oriented to person, oriented to place, oriented to time and patient oriented x3 Cranial nerves: Yes Equal, round and reactive pupils present and Yes Normal hearing present Cognition (Neuro): normal cognition
== END 2020-09-20 18:37 | disposition home or self-care (01) ==
LOC: ANHED 11:52 → ANH2MED 15:21
PROVIDERS: Nurse Practitioner; Admitting Provider Family Medicine; Emergency Provider General Practice; PCP Family Medicine Adolescent Medicine; Visit Provider Nurse Practitioner Adult Health
DX: K52.9 Noninfective gastroenteritis and colitis, unspecified (principal); F10.10 Alcohol abuse, uncomplicated; K59.00 Constipation, unspecified; I10 Essential (primary) hypertension; I25.2 Old myocardial infarction; F17.210 Nicotine dependence, cigarettes, uncomplicated; G89.29 Other chronic pain; M54.9 Dorsalgia, unspecified; Z86.718 Personal history of other venous thrombosis and embolism; Z86.711 Personal history of pulmonary embolism; Z79.01 Long term (current) use of anticoagulants
CPT/HCPCS: 36415; 71275; 74177; 80053; 81001; 82140; 83690; 83735; 84100; 84443; 85025; 85610; 85730; 93005; 96361; 96372; 96374; 96375; 99285; A9270; G0378; J1650; J2270; J2405; J3411; J7030; J7120; Q9967

== ENCOUNTER 2021-01-27 14:20 | Outpatient (CLI) | payer MEDICARE, MEDICAID, SELFPAY ==
[2021-01-27 14:52] LABS: Hemoglobin 13.3 g/dL (14.0-18.0); Mean Corpuscular HGB Conc 35.9 g/dl (32-36); Mean Corpuscular Hemoglobin 39.7 pg (26-34); Mean Corpuscular Volume 110.4 fl (80-100); Mean Platelet Volume 9.5 fl (7.4-10.4); Platelet Count Result 173 k/mm3 (150-375); Red Blood Count 3.35 M/mm3 (4.6-6.20); Red Cell Distribution Width 14.7 % (11.5-14.5); White Blood Count 7.6 K/mm3 (4.5-10.0)
[2021-01-27 15:27] LABS: Alanine Aminotransferase 11 U/L (4-50); Albumin Level 3.3 g/dL (3.5-5.1); Alkaline Phosphatase 71 U/L (38-126); Anion Gap 6 mmol/L (8-16); Aspartate Amino Transferase 21 U/L (17-59); Bilirubin,Total 0.8 mg/dL (0.2-1.3); Blood Urea Nitrogen 12 mg/dL (9-20); CRP < 0.5 mg/dL (<1.0); Calcium 8.8 mg/dL (8.4-10.2); Carbon Dioxide 34 mmol/L (22-30); Chloride 95 mmol/L (98-107); Estimated Glomerular Filt Rate > 60; Glucose 132 mg/dL (65-110); Potassium 3.6 mmol/L (3.4-5.0); Sodium 135 mmol/L (137-145)
[2021-01-27 15:55] LABS: Prostate Specific Antigen < 0.1 ng/mL (< OR = 4.0)
[2021-01-27 16:30] LABS: Folic Acid 4.7 ng/mL (2.76->20)
[2021-01-27 17:41] LABS: Erythrocyte Sedimentation Rate 10 mm/hr (0-20)
== END 2021-01-27 14:21 | disposition home or self-care (01) ==
PROVIDERS: PCP Family Medicine Adolescent Medicine; Visit Provider Physician Assistant
DX: R20.2 Paresthesia of skin (principal); Z12.5 Encounter for screening for malignant neoplasm of prostate
CPT/HCPCS: 36415; 80053; 82607; 82746; 84153; 85027; 85652; 86140; G0103

== ENCOUNTER 2021-03-19 02:29 | Day surgery (SDC) | payer MEDICARE, MEDICAID, SELFPAY ==
[2021-03-09 13:27] VITALS: BMI 26.2
[2021-03-19 10:05] VITALS: BP 96/72; PULSE 96; RESP 16; TEMP 36.7; O2SAT 100; BMI 25.1
[2021-03-19] MEDS: LACTATED RINGERS 1,000 ML 150 ML IV CONT (10:15)
--- NOTE | 2021-03-19 10:29 | WPDHPUPDATE1 ---
History and Physical Update Update Date/Time: 03/19/21 10:29 History and Physical has been reviewed, including an updated exam of the patient. There are NO changes in the patient's condition. Risks, benefits, and alternatives have been discussed and questions answered. Patient agrees to proceed with procedure.
[2021-03-19] MEDS: BENZOCAINE (*SP) 60 ML SPRAY CAN (HURRICAINE) 1 SPRAY MUCOUS MEM (10:37)
--- NOTE | 2021-03-19 10:37 | WPDANESEPPF ---
Anes - Initial Pre Proc Eval Procedure: Operation Date: 03/19/21 11:00 Proposed Procedures p Esophagogastroduodenoscopy & Screening Colonoscopy - dA Luke MD Date/Time: 03/19/21 10:37 Surgeon: Ad Luke MD Pre Op Diagnosis: neoplasm screening, esophagitis Patient Data Age: 60 Gender: M Height: 1.7 m Weight: 72.8 kg Last Vital Signs Temp 98.0 F 03/19/21 10:05 Pulse 96 03/19/21 10:05 Resp 16 03/19/21 10:05 BP 96/72 L 03/19/21 10:05 Pulse Ox 100 03/19/21 10:05 Allergies Allergy/AdvReac Type Severity Reaction Status Date / Time No Known Allergies Allergy Mild Verified 03/19/21 10:02 Home Medications Medication Instructions Recorded Confirmed Type metoprolol succinate 25 mg PO DAILY 02/13/20 03/19/21 History morphine 30 mg PO BID-TID PRN 02/13/20 03/19/21 History rivaroxaban 10 mg PO DAILY 02/13/20 03/19/21 History pantoprazole 40 mg PO Q12HR 30 Days #60 tablet 02/19/20 03/19/21 Rx furosemide [Lasix] 20 mg PO DAILY PRN 03/26/20 03/19/21 History promethazine 25 mg PO TID PRN 09/19/20 03/19/21 History buspirone 10 mg PO BID 03/09/21 03/19/21 History sofosbuvir-velpatasvir [Epclusa] 1 tablet PO DAILY 03/09/21 03/19/21 History tamsulosin 0.4 mg PO DAILY 03/09/21 03/19/21 History vitamin B complex 1 tablet PO DAILY 03/09/21 03/19/21 History Patient hx anesthesia problems: none Family hx anesthesia problems: none Results Review: All pre-operative results and documents have been reviewed as part of the pre-operative evaluation. [facility] Past Medical History Medical History (Updated 02/18/21 @ 14:32 by Ad Luke MD) Abnormal CT scan, esophagus Alcohol abuse Angiomatosis Benign colon polyp Chronic back pain On long-term opioid therapy. Colon cancer screening Constipation Current use of terminal clerk anticoagulation Gastritis Gastroesophageal reflux disease Hepatitis C The patient stated that he was supposed to start treatment but the insurance would not pay for the medication. Hepatitis C antibody positive in blood HTN (hypertension), malignant Left leg DVT (~12/2018) Macrocytic anemia Non-STEMI (non-ST elevated myocardial infarction) (~12/2018) Related to submassive pulmonary embolism. Paroxysmal atrial flutter Pulmonary emboli Pulmonary embolism Pulmonary embolism with acute cor pulmonale (~12/2018) Scoliosis Thrombocytopenia Surgical History Surgical History (Reviewed 02/18/21 @ 14:01 by Abby Deleon [facility]) History of colonoscopy History of facial surgery Right orbit repair. History of orthopedic surgery Surgical fixation left tib-fib, right foot surgery. Family History Family History (Reviewed 02/18/21 @ 14:01 by Abby Deleon [facility]) Father Heart disease age 68 of heart disease Mother Dementia age 94, had dementia Unknown Heart disease family history of heart disease, kidney disease, and possible pulmonary emboli Social History Social History (Updated 02/18/21 @ 14:03 by Abby Deleon [facility]) Social History: The patient is single and lives in his own trailer in [place]. He has no children. He is retired, on disability, and used to work in maintenance. He smokes about half a pack of cigarettes per day. At 1 point time he drank 3- 8 alcoholic beverages a day, but for the last several months he has not been drinking much due to feeling poorly. He denies illicit substance use. He designates his friend, Aryan Yañez, as his surrogate decision maker and he wishes to be a full code. Smoking packs per day: 0.75 Smoking cigarettes per day: 15.0 Years smoked: 30 Smoking pack-years: 22.50 Smoking status: Current every day smoker Tobacco type: cigarettes Second hand tobacco smoke exposure: No Alcohol intake: former Drinks per week: 20 Alcohol use details: vodka and grapefruit juice Substance use: current Substance use ty
--- NOTE | 2021-03-19 11:06 | SUR.OPER ---
EGD START 1039, END 1042 COLONOSCOPY START 1047, END 1103
[2021-03-19 11:08] VITALS: BP 92/60; PULSE 80; RESP 17; O2SAT 100
[2021-03-19 11:18] VITALS: BP 99/65; PULSE 85; RESP 17; O2SAT 100
--- NOTE | 2021-03-19 11:24 | SUR.PHASEII ---
Per Dr. Martin giron tomorrow, 03/20/21
[2021-03-19 11:28] VITALS: BP 101/62; PULSE 77; RESP 13; O2SAT 100
== END 2021-03-19 11:52 | disposition home or self-care (01) ==
PROVIDERS: PCP Family Medicine Adolescent Medicine; Visit Provider Internal Medicine Gastroenterology
PROC: 0DJ08ZZ Inspection of Upper Intestinal Tract, Via Natural or Artificial Opening Endoscopic (ICD-10-PCS; CPT 43235; principal; 2021-03-19 11:00)
DX: Z12.11 Encounter for screening for malignant neoplasm of colon (principal); K64.8 Other hemorrhoids; K29.50 Unspecified chronic gastritis without bleeding; R11.0 Nausea; M54.9 Dorsalgia, unspecified; G89.29 Other chronic pain; K21.9 Gastro-esophageal reflux disease without esophagitis; B19.20 Unspecified viral hepatitis C without hepatic coma; D64.9 Anemia, unspecified; I48.92 Unspecified atrial flutter; I25.2 Old myocardial infarction; Z86.711 Personal history of pulmonary embolism; Z86.718 Personal history of other venous thrombosis and embolism; Z79.01 Long term (current) use of anticoagulants; Z79.891 Long term (current) use of opiate analgesic; F17.210 Nicotine dependence, cigarettes, uncomplicated; F12.90 Cannabis use, unspecified, uncomplicated
CPT/HCPCS: 43239; G0121; 88305; J2370; J2704; J7120

== ENCOUNTER 2021-05-07 13:18 | Outpatient (CLI) | payer MEDICARE, MEDICAID, SELFPAY ==
[2021-05-07 13:59] LABS: Hematocrit 39.9 % (42.0-52.0); Hemoglobin 13.2 g/dL (14.0-18.0); Immature Platelet Fraction Pct 6.3 % (0.9-11.2); Mean Corpuscular HGB Conc 33.1 g/dl (32-36); Mean Corpuscular Hemoglobin 33.7 pg (26-34); Mean Corpuscular Volume 101.8 fl (80-100); Mean Platelet Volume 11.2 fl (7.4-10.4); Platelet Count Result 114 k/mm3 (150-375); Red Blood Count 3.92 M/mm3 (4.6-6.20); Red Cell Distribution Width 12.7 % (11.5-14.5)
[2021-05-07 14:10] LABS: INR 2.2; Prothrombin Time 23.5 Seconds (11.1-14.7)
[2021-05-07 14:11] LABS: Alanine Aminotransferase 13 U/L (4-50); Albumin Level 2.7 g/dL (3.5-5.1); Alkaline Phosphatase 72 U/L (38-126); Anion Gap 3 mmol/L (8-16); Aspartate Amino Transferase 25 U/L (17-59); Bilirubin,Total 0.8 mg/dL (0.2-1.3); Blood Urea Nitrogen 13 mg/dL (9-20); Calcium 8.3 mg/dL (8.4-10.2); Carbon Dioxide 33 mmol/L (22-30); Chloride 102 mmol/L (98-107); Estimated Glomerular Filt Rate > 60; Glucose 141 mg/dL (65-110); Potassium 3.4 mmol/L (3.4-5.0); Sodium 138 mmol/L (137-145)
[2021-05-11 15:37] LABS: Hepatitis C RNA, Quant PCR <15 IU/mL
== END 2021-05-07 13:19 | disposition home or self-care (01) ==
PROVIDERS: PCP Family Medicine Adolescent Medicine; Visit Provider Internal Medicine Gastroenterology
DX: B19.20 Unspecified viral hepatitis C without hepatic coma (principal)
CPT/HCPCS: 36415; 80053; 85027; 85055; 85610; 87522

== ENCOUNTER 2021-05-25 08:21 | Outpatient (CLI) | payer MEDICARE, MEDICAID, SELFPAY ==
--- NOTE | 2021-05-25 11:00 | NEURO_ITS ---
Impression: # Complains of numbness of hands and feet; Patient did not want lower extremities tested. # Bilateral Carpal Tunnel Syndrome, left more than right. # Left ulnar neuropathy across the elbow. # Needle/EMG exam not requested. Nerve Conduction Studies Anti Sensory Summary Table Stim Site NR Peak (ms) P-T Amp (?V) Site1 Site2 Delta-P (ms) Dist (cm) Davi (m/s) Left Median Anti Sensory (2-3nd Digit) NO RESPONSE Wrist NR Wrist 2-3nd Digit 14.0 Wrist NR Wrist 2-3nd Digit 14.0 Right Median Anti Sensory (2-3nd Digit) Wrist 5.9 9.9 Wrist 2-3nd Digit 5.9 14.0 24 Wrist 4.3 4.3 Wrist 2-3nd Digit 5.9 14.0 24 Left Radial Anti Sensory (Base 1st Digit) Wrist 3.3 10.1 Wrist Base 1st Digit 3.3 0.0 Right Radial Anti Sensory (Base 1st Digit) Wrist 2.9 7.7 Wrist Base 1st Digit 2.9 0.0 Left Ulnar Anti Sensory (5th Digit) Wrist 3.2 21.1 Wrist 5th Digit 3.2 14.0 44 Right Ulnar Anti Sensory (5th Digit) Wrist 3.1 4.2 Wrist 5th Digit 3.1 14.0 45 Motor Summary Table Stim Site NR Onset (ms) O-P Amp (mV) Site1 Site2 Delta-0 (ms) Dist (cm) Davi (m/s) Left Median Motor (Abd Poll Brev) Wrist 5.8 0.9 Elbow Wrist 6.4 32.0 50 Elbow 12.2 1.1 Right Median Motor (Abd Poll Brev) Wrist 4.3 0.8 Elbow Wrist 7.0 28.0 40 Elbow 11.3 2.7 Left Ulnar Motor (Abd Dig Minimi) Wrist 2.9 5.2 A Elbow Wrist 7.3 32.0 44 A Elbow 10.2 3.3 B Elbow Wrist 5.2 25.0 48 B Elbow 8.1 3.9 Right Ulnar Motor (Abd Dig Minimi) Wrist 3.1 3.6 A Elbow Wrist 5.7 30.0 53 A Elbow 8.8 2.7 F Wave Studies NR F-Lat (ms) L-R F-Lat (ms) Left Median (Mrkrs) (Abd Poll Brev) 32.02 1.47 Right Median (Mrkrs) (Abd Poll Brev) 33.49 1.47 Left Ulnar (Mrkrs) (Abd Dig Min) 32.00 0.82 Right Ulnar (Mrkrs) (Abd Dig Min) 32.82 0.82 MTDD
== END 2021-05-25 08:22 | disposition home or self-care (01) ==
LOC: ANHNEURO 08:25
PROVIDERS: PCP Family Medicine Adolescent Medicine; Visit Provider Family Medicine Adolescent Medicine
DX: G56.03 Carpal tunnel syndrome, bilateral upper limbs (principal); G56.22 Lesion of ulnar nerve, left upper limb
CPT/HCPCS: 95911

== ENCOUNTER 2021-08-06 08:04 | Outpatient (CLI) | payer MEDICARE, MEDICAID, SELFPAY ==
--- NOTE | 2021-08-06 12:36 | WPDPFTINT ---
PFT Procedure Performed PFT Procedure Performed Spirometry w/o Bronchodil PFT Interpretation Spirometry showed normal FVC, normal FEV1, diminished mid expiratory flow rates at 47% predicted and a diminished FEV1 to FVC ratio 64% suggestive of mild obstructive airway disease mostly in the form of small airway disease. No bronchodilatation study was carried out. Impression: Probable mild obstructive airway disease in the form of small airway disease. Consider repeating spirometry with bronchodilator study.
== END 2021-08-06 08:05 | disposition home or self-care (01) ==
LOC: ANHPFT 08:05
PROVIDERS: PCP Family Medicine Adolescent Medicine; Visit Provider Family Medicine Adolescent Medicine
DX: R06.00 Dyspnea, unspecified (principal); R94.2 Abnormal results of pulmonary function studies
CPT/HCPCS: 94375

== ENCOUNTER 2021-09-09 12:46 | Outpatient (CLI) | payer MEDICARE, MEDICAID, SELFPAY ==
[2021-09-09 13:20] LABS: Hemoglobin 14.6 g/dL (14.0-18.0); Immature Platelet Fraction Pct 2.8 % (0.9-11.2); Mean Corpuscular HGB Conc 32.4 g/dl (32-36); Mean Corpuscular Hemoglobin 32.5 pg (26-34); Mean Corpuscular Volume 100.2 fl (80-100); Mean Platelet Volume 9.5 fl (7.4-10.4); Platelet Count Result 139 k/mm3 (150-375); Red Blood Count 4.49 M/mm3 (4.6-6.20); Red Cell Distribution Width 14.1 % (11.5-14.5); White Blood Count 4.9 K/mm3 (4.5-10.0)
[2021-09-09 13:28] LABS: Alanine Aminotransferase 10 U/L (4-50); Albumin Level 3.5 g/dL (3.5-5.1); Alkaline Phosphatase 67 U/L (38-126); Anion Gap 3 mmol/L (8-16); Aspartate Amino Transferase 26 U/L (17-59); Bilirubin,Total 0.7 mg/dL (0.2-1.3); Blood Urea Nitrogen 15 mg/dL (9-20); Calcium 8.4 mg/dL (8.4-10.2); Carbon Dioxide 33 mmol/L (22-30); Chloride 102 mmol/L (98-107); Estimated Glomerular Filt Rate > 60; Glucose 85 mg/dL (65-110); Potassium 4.4 mmol/L (3.4-5.0); Sodium 138 mmol/L (137-145)
[2021-09-09 13:39] LABS: Prothrombin Time 21.8 Seconds (11.1-14.7)
[2021-09-13 06:56] LABS: Hepatitis C RNA, Quant PCR <15 IU/mL
== END 2021-09-09 12:47 | disposition home or self-care (01) ==
LOC: ANHLAB 12:49
PROVIDERS: PCP Family Medicine Adolescent Medicine; Visit Provider Nurse Practitioner Family
DX: B19.20 Unspecified viral hepatitis C without hepatic coma (principal)
CPT/HCPCS: 36415; 80053; 85027; 85055; 85610; 87522

== ENCOUNTER 2021-11-16 03:38 | Emergency (ER) | payer MEDICARE, MEDICAID, SELFPAY ==
--- NOTE | ~2021-11-16 | XR_ITS ---
EXAMINATION: XR chest 1V portable DATE: 11/16/2021 04:47 INDICATION: Shortness of breath. Fever. TECHNIQUE: A single frontal view of the chest was obtained. COMPARISON: Chest 2 views 02/13/2020, chest CT 09/19/2020 FINDINGS: There is mild atelectasis in the lower lung zones. No pleural effusion or pneumothorax. The heart size is normal. There are multiple old healed right rib fractures. IMPRESSION: 1. Mild atelectasis in the lower lung zones. Reviewed, dictated and finalized at location A.
[2021-11-16 03:37] VITALS: BP 126/89; PULSE 96; RESP 14; TEMP 38.8
[2021-11-16 03:58] LABS: Basophils Percent Auto 0.2 % (0.2-1.2); Hematocrit 43.1 % (42.0-52.0); Hemoglobin 14.6 g/dL (14.0-18.0); Immature Granulocyte Absolute 0.09 K/mm3 (0.00-0.031); Immature Granulocyte Percent A 0.7 % (0-0.5); Immature Platelet Fraction Pct 4.4 % (0.9-11.2); Lymphocytes Absolute Auto 0.31 K/mm3 (0.9-3.2); Lymphocytes Percent Auto 2.4 % (18.3-44.2); Mean Corpuscular HGB Conc 33.9 g/dl (32-36); Mean Corpuscular Hemoglobin 32.7 pg (26-34); Mean Corpuscular Volume 96.4 fl (80-100); Mean Platelet Volume 10.5 fl (7.4-10.4); Monocytes Absolute Auto 0.8 K/mm3 (0.1-0.6); Monocytes Percent Auto 6.3 % (2.6-8.5); Neutrophils Absolute Auto 11.9 K/mm3 (1.3-6.7); Neutrophils Percent Auto 90.4 % (45.5-73.1); Platelet Count Result 111 k/mm3 (150-375); Red Blood Count 4.47 M/mm3 (4.6-6.20); Red Cell Distribution Width 13.4 % (11.5-14.5); White Blood Count 13.1 K/mm3 (4.5-10.0)
--- NOTE | 2021-11-16 04:01 | PC.NURSE ---
This RN asked pt to attempt to provide urine sample. Pt states he doesnt feel like going right now . Urinal placed at bedside.
[2021-11-16 04:06] LABS: Alanine Aminotransferase 11 U/L (6-50); Albumin Level 3.9 g/dL (3.5-5.1); Alkaline Phosphatase 91 U/L (38-126); Anion Gap 0 mmol/L (8-16); Aspartate Amino Transferase 24 U/L (17-59); Blood Urea Nitrogen 17 mg/dL (9-20); Calcium 8.7 mg/dL (8.4-10.2); Carbon Dioxide 37 mmol/L (22-30); Chloride 98 mmol/L (98-107); Estimated CRCL calculation 65 ml/min; Estimated Glomerular Filt Rate > 60; Glucose 135 mg/dL (65-110); Lipase 29 U/L (23-300); Potassium 3.6 mmol/L (3.4-5.0); Sodium 135 mmol/L (137-145)
[2021-11-16 04:07] LABS: Lactic Acid Reflex 1.1 mmol/L (0.7-2.0)
--- NOTE | 2021-11-16 04:08 | ED.FEVER ---
HPI - Fever General Chief Complaint: Fever Stated Complaint: LLQ pain; Not feeling well Time Seen by Provider: 11/16/21 03:39 History of Present Illness HPI Narrative: 60-year-old male presenting to the emergency department for evaluation of fever and not feeling well. Patient did go to [facility] and after getting back he called an ambulance for not feeling well. In route patient did have a measured fever of 102. Patient did not take anything for this fever. Upon arrival to the ED patient was hypoxic into the mid 80s on room air but did improve with 2 L of nasal cannula. Patient denies any associated nausea vomiting diarrhea. Patient denies any associate abdominal pain. Patient did feel short of breath and denies any chest pain. Patient states he does have back pain which he attributes to his chronic back pain. Patient is vaccinated to COVID and to his knowledge he has not yet had COVID. Related Data Home Medications Medication Instructions Recorded Confirmed furosemide 20 mg tablet (Lasix) 20 mg PO DAILY PRN Edema 03/26/20 09/16/21 promethazine 25 mg tablet 25 mg PO TID PRN Nausea 09/19/20 09/16/21 vitamin B complex 1 tablet PO DAILY 03/09/21 09/16/21 Allergies Allergy/AdvReac Type Severity Reaction Status Date / Time No Known Allergies Allergy Mild Verified 11/16/21 03:59 Review of Systems Review of Systems: CONSTITUTIONAL: Fever and not feeling well EYES: Denies visual changes, redness, or discharge. ENT: Denies rhinorrhea, congestion, sore throat, or otalgia. CARDIOVASCULAR: Denies chest pain, palpitations, or edema. RESPIRATORY: Denies cough or dyspnea. GASTROINTESTINAL: Denies abdominal pain, nausea, vomiting, or diarrhea. GENITOURINARY: Denies dysuria or hematuria. SKIN: Denies rash or itching. MUSCULOSKELETAL: Denies back pain, joint pain, or myalgia. NEUROLOGIC: Denies headache, numbness, or weakness. [facility] Past Medical History Medical History (Updated 11/17/21 @ 00:00 by Background Daemon) Abnormal CT scan, esophagus Alcohol abuse Colon cancer screening Constipation Current use of fpc anticoagulation Gastritis Gastroesophageal reflux disease Hepatitis C The patient stated that he was supposed to start treatment but the insurance would not pay for the medication. Hepatitis C antibody positive in blood History of atrial flutter History of pulmonary embolism 09/16 01/14 Left leg DVT (~12/2018) 01/14 Macrocytic anemia Non-STEMI (non-ST elevated myocardial infarction) (~12/2018) Related to submassive pulmonary embolism. Paroxysmal atrial flutter 01/14 Scoliosis Thrombocytopenia Surgical History Surgical History History of colonoscopy 03/19/21 History of facial surgery Right orbit repair. History of orthopedic surgery Surgical fixation left tib-fib, right foot surgery. Family History Family History Father Heart disease age 68 of heart disease Mother Dementia age 94, had dementia Unknown Heart disease family history of heart disease, kidney disease, and possible pulmonary emboli Social History Social History Social History: The patient is single and lives in his own trailer in [place]. He has no children. He is retired, on disability, and used to work in maintenance. He smokes about half a pack of cigarettes per day. At 1 point time he drank 3- 8 alcoholic beverages a day, but for the last several months he has not been drinking much due to feeling poorly. He denies illicit substance use. He designates his friend, Aryan Yañez, as his surrogate decision maker and he wishes to be a full code. Smoking packs per day: 0.75 Smoking cigarettes per day: 15.0 Years smoked: 30 Smoking pack-years: 22.50 Tobacco type: cigarettes Second hand tobacco
[2021-11-16 04:34] LABS: SARS-CoV-2 RNA PCR Negative
[2021-11-16 04:37] VITALS: BP 114/77; PULSE 91; RESP 12; TEMP 37.3; O2SAT 98
[2021-11-16 05:07] VITALS: O2SAT 98
[2021-11-16 05:29] VITALS: BP 108/74; PULSE 78; RESP 16; O2SAT 94
[2021-11-16] MEDS: LIDOCAINE HCL 2% GEL UROJET 10 ML PKG (05:39)
[2021-11-16 05:56] LABS: Appearance Urine Clear (Clear); Bilirubin Urine 1+ (Negative); Blood Urine 2+ (Negative); Color Urine Yellow (Yellow); Glucose Urine UA Negative (Negative); Ketones Urine Negative (Negative); Leukocyte Esterase Ur Negative LEU/UL (Negative); Nitrate Urine Negative (Negative); Protein Urine Negative (Negative); Urobilinogen Urine >=8.0 mg/dL (<2.0)
[2021-11-16 06:03] LABS: Add Urine Microscopic? YES; RBC Urine 21-50 /hpf (0-2); WBC Urine 0-3 /hpf
[2021-11-16 06:15] VITALS: BP 108/76; PULSE 80; RESP 17; O2SAT 98
--- NOTE | 2021-11-16 06:45 | PC.NURSE ---
Pt requesting morning home medications before discharge, as he states it will take him a while to find a ride home. MATTHEW Lei notified.
[2021-11-16 06:56] VITALS: TEMP 37
[2021-11-16] MEDS: HYDROcodone/acetaminophen (*CRX) 5-325 MG TABLET 1 TAB PO (07:08)
[2021-11-16] MEDS: PANTOPRAZOLE 40 MG TABLET PO (07:09)
[2021-11-16] MEDS: busPIRone HCL 5 MG TABLET 15 MG PO (07:09)
== END 2021-11-16 07:20 | disposition home or self-care (01) ==
PROVIDERS: Emergency Provider Emergency Medicine; PCP Family Medicine Adolescent Medicine
DX: B34.9 Viral infection, unspecified (principal); R50.9 Fever, unspecified; Z20.822 Contact with and (suspected) exposure to COVID-19; I48.92 Unspecified atrial flutter; K21.9 Gastro-esophageal reflux disease without esophagitis; B19.20 Unspecified viral hepatitis C without hepatic coma; D53.9 Nutritional anemia, unspecified; I25.2 Old myocardial infarction; Z86.711 Personal history of pulmonary embolism; Z86.718 Personal history of other venous thrombosis and embolism; F17.210 Nicotine dependence, cigarettes, uncomplicated; Z79.01 Long term (current) use of anticoagulants
CPT/HCPCS: 36415; 51701; 71045; 80053; 81001; 83605; 83690; 85025; 85055; 96365; 99284; A9270; C9803; J0131; U0003; U0005

== ENCOUNTER → 2022-05-25 13:36 | Outpatient (CLI) | payer MEDICARE, MEDICAID, SELFPAY ==
--- NOTE | ~2022-05-25 | XR_ITS ---
Cervical Spine: AP, lateral, open-mouth views Clinical History: Pain Findings: The normal lordotic curve is maintained. No fracture identified. Minimal grade 1 anterolist hesis of C4 over C5 present. There is degenerative disc narrowing at C5-C6 and C6-C7. There is scatte red facet joint degenerative changes, especially at C4-C5. Pre-vertebral soft tissues are unremarkabl e. Impression: No fracture. Minimal grade 1 anterolisthesis of C4 over C5. Additional degenerative changes, as detailed above. Reviewed, dictated and finalized at location M. LANCE WRITER Impression: No fracture. Minimal grade 1 anterolisthesis of C4 over C5. Additional degenerative changes, as detailed above.
== END ==
PROVIDERS: PCP Family Medicine Adolescent Medicine; Visit Provider Family Medicine Adolescent Medicine
DX: M54.2 Cervicalgia (principal)
CPT/HCPCS: 72040

== ENCOUNTER 2022-06-11 12:15 | Outpatient (CLI) | payer MEDICARE, MEDICAID, SELFPAY ==
[2022-06-11 13:25] LABS: Anion Gap 4 mmol/L (8-16); Blood Urea Nitrogen 16 mg/dL (9-20); Carbon Dioxide 36 mmol/L (22-30); Chloride 95 mmol/L (98-107); Estimated Glomerular Filt Rate > 60; Glucose 96 mg/dL (65-110); Potassium 3.4 mmol/L (3.4-5.0); Sodium 135 mmol/L (137-145)
== END 2022-06-11 12:16 | disposition home or self-care (01) ==
LOC: ANHLAB 12:18
PROVIDERS: PCP Family Medicine Adolescent Medicine; Visit Provider Nurse Practitioner Adult Health
DX: I27.20 Pulmonary hypertension, unspecified (principal); I48.92 Unspecified atrial flutter; R60.9 Edema, unspecified
CPT/HCPCS: 36415; 80048

== ENCOUNTER 2023-02-06 10:02 | Emergency (ER) | payer MEDICARE, MEDICAID, SELFPAY ==
--- NOTE | ~2023-02-06 | XR_ITS ---
EXAMINATION: XR thoracic spine 3V DATE: 02/06/2023 13:06 INDICATION: Nontraumatic back pain. TECHNIQUE: 3 views of thoracic spine were obtained. COMPARISON: Chest CT 09/19/2020 FINDINGS: There is 31 degrees levoscoliosis of upper thoracic spine and 52 degrees dextroscoliosis of lower thoracic spine. Vertebral body heights are normal. There is severe cervical spondylosis. There is mild to moderately decreased disc height at multiple levels in thoracic spine. There is multileve l facet joint osteoarthritis, severe at many levels. There are multiple old healed right rib fracture s. IMPRESSION: 1. Severe cervical spondylosis and moderate thoracic spondylosis. 2. Scoliosis. Reviewed, dictated and finalized at location A.
--- NOTE | ~2023-02-06 | XR_ITS ---
XR chest 1V portable 02/06/2023 13:06 Indication: Back pain Procedure: AP portable chest Comparison: Comparison to multiple prior studies sequentially, with oldest reviewed study dated 01/22. Findings: Severe scoliosis. Multiple healed right rib fractures. No focal air space disease, pulmonar y edema, pleural effusion or suspected pneumothorax. Impression: 1: No acute cardiopulmonary disease. Reviewed, dictated and finalized at location B. Impression: 1: No acute cardiopulmonary disease.
--- NOTE | ~2023-02-06 | XR_ITS ---
XR lumbar spine 2-3V 02/06/2023 13:06 Indication: Nontraumatic back pain. Right leg radiculopathy. Procedure: 2 views of the lumbar spine Comparison: 03/09/2018 Findings: There is levoscoliosis of the lumbar spine centered at L3 measuring 47 degrees. There is di sc narrowing at all levels. There is left lateral listhesis at L3-4 and L4-5. No acute fracture or tr aumatic malalignment. There are cholecystectomy clips. Impression: 1: Moderate lumbar spondylosis with severe levoscoliosis centered at L3. Reviewed, dictated and finalized at location B. Impression: 1: Moderate lumbar spondylosis with severe levoscoliosis centered at L3.
[2023-02-06 11:11] VITALS: BP 106/89; PULSE 81; RESP 18; TEMP 36.6; O2SAT 99
--- NOTE | 2023-02-06 12:56 | ECG_ITS ---
Measurements Intervals [place] Rate: 87 P: 73 MD: 150 QRS: 62 QRSD: 86 T: 66 QT: 341 QTc: 411 Interpretive Statements SINUS RHYTHM WITH SINUS ARRHYTHMIA POSSIBLE LEFT ATRIAL ENLARGEMENT BORDERLINE ST-T WAVE ABNORMALITY- ANTEROLAT/INF LEADS BASELINE ARTIFACT- II, III, AVR, AVF, V4-V6 BORDERLINE ECG COMPARED TO ECG 09/19/2020 01:25:19 [address]MIA NOW PRESENT ST-T WAVE ABNORMALITY NOW PRESENT Electronically Signed On 02-06-2023 13:48:31 CDT by Rickey Duong D.O.
--- NOTE | 2023-02-06 12:58 | ED.BACK ---
HPI - Back Pain/Injury General Chief Complaint: Back Pain/Injury Stated Complaint: back pain Time Seen by Provider: 02/06/23 12:18 Source: patient Mode of arrival: ambulatory Limitations: no limitations History of Present Illness HPI Narrative: 62 years old white female drove himself to the emergency room complaining of generalized back pain from the top to the bottom started few months, few weeks and few days. Got worse over the last 3 days been doing painting over the last 3 days. History of chronic back pain, scoliosis, currently on morphine 30 mg 3 times daily prescribed by Dr. Nielsen. Patient denies any fever, chills, nausea, vomiting or chest pain or shortness of breath. Quit smoking 1 week ago, drinks occasionally does not use drugs history of COPD. Related Data Home Medications Medication Instructions Recorded Confirmed vitamin B complex 1 tablet PO DAILY 03/09/21 01/02/23 Allergies Allergy/AdvReac Type Severity Reaction Status Date / Time amoxicillin [From Augmentin] AdvReac Severe Diarrhea Verified 02/06/23 11:47 clavulanic acid AdvReac Severe Diarrhea Verified 02/06/23 11:47 [From Augmentin] Review of Systems Review of Systems: All systems reviewed & are unremarkable except as noted in HPI and below PMFSH Past Medical History Medical History Abnormal CT scan, esophagus Alcohol abuse Colon cancer screening Constipation Current use of nursing home anticoagulation Gastritis Gastroesophageal reflux disease Hepatitis C The patient stated that he was supposed to start treatment but the insurance would not pay for the medication. Hepatitis C antibody positive in blood History of atrial flutter History of pulmonary embolism 09/16 01/14 Left leg DVT (~12/2018) 01/14 Macrocytic anemia Non-STEMI (non-ST elevated myocardial infarction) (~12/2018) Related to submassive pulmonary embolism. Paroxysmal atrial flutter 01/14 Scoliosis Thrombocytopenia Surgical History Surgical History History of colonoscopy 03/19/21 History of facial surgery Right orbit repair. History of orthopedic surgery Surgical fixation left tib-fib, right foot surgery. Hx laparoscopic cholecystectomy 08/2022 Hx of hemorrhoidectomy Family History Family History Father Heart disease age 68 of heart disease Mother Dementia age 94, had dementia Unknown Heart disease family history of heart disease, kidney disease, and possible pulmonary emboli Social History Social History Social History: The patient is single and lives in his own trailer in [place]. He has no children. He is retired, on disability, and used to work in maintenance. He smokes about half a pack of cigarettes per day. At 1 point time he drank 3- 8 alcoholic beverages a day, but for the last several months he has not been drinking much due to feeling poorly. He denies illicit substance use. He designates his friend, Aryan Yañez, as his surrogate decision maker and he wishes to be a full code. Smoking packs per day: 0.75 Smoking cigarettes per day: 15.0 Years smoked: 30 Smoking pack-years: 22.50 Smoking status: Former smoker (Quit in June,) Tobacco type: cigarettes Second hand tobacco smoke exposure: No Smoking end date: 07/19/21 Alcohol intake: former Drinks per week: 20 Alcohol use details: vodka and grapefruit juice Substance use: current Substance use type: marijuana Other substance usage details: occasionally Last use: 07/29/20 Lack of Transportation: YES Lack of Food: Never True Current Housing: I Have Housing Concerned About Future Housing: No Difficulty Paying Gas/Electric Bills: YES Difficulty Paying for Meds: No Currently Unemployed:
[2023-02-06] MEDS: KETOROLAC (*BKC) 60 MG/2 ML VIAL IM (13:07)
[2023-02-06] MEDS: ONDANSETRON HCL ODT 4 MG TABLET PO (13:07)
[2023-02-06] MEDS: HYDROmorphone HCL INJ (*CRX) 1 MG/ML SYR IM (13:08)
[2023-02-06 13:44] LABS: Basophils Percent Auto 0.3 % (0.2-1.2); Eosinophils Percent Auto 0.3 % (0-4.4); Hematocrit 42.9 % (42.0-52.0); Hemoglobin 14.5 g/dL (14.0-18.0); Immature Granulocyte Absolute 0.01 K/mm3 (0.00-0.031); Immature Granulocyte Percent A 0.3 % (0-0.5); Immature Platelet Fraction Pct 5.7 % (0.9-11.2); Lymphocytes Absolute Auto 0.67 K/mm3 (0.9-3.2); Lymphocytes Percent Auto 23.3 % (18.3-44.2); Mean Corpuscular HGB Conc 33.8 g/dl (32-36); Mean Corpuscular Hemoglobin 34.1 pg (26-34); Mean Corpuscular Volume 100.9 fl (80-100); Mean Platelet Volume 9.8 fl (7.4-10.4); Monocytes Absolute Auto 0.4 K/mm3 (0.1-0.6); Monocytes Percent Auto 14.6 % (2.6-8.5); Neutrophils Absolute Auto 1.8 K/mm3 (1.3-6.7); Neutrophils Percent Auto 61.2 % (45.5-73.1); Platelet Count Result 83 k/mm3 (150-375); Red Blood Count 4.25 M/mm3 (4.6-6.20); Red Cell Distribution Width 12.7 % (11.5-14.5); White Blood Count 2.9 K/mm3 (4.5-10.0)
[2023-02-06 14:06] LABS: Troponin I < 0.012 ng/mL (0.000-0.034)
[2023-02-06 14:07] LABS: Platelet Estimate Decreased (Adequate); Schistocytes None Seen (NORMAL)
[2023-02-06 14:11] LABS: Alanine Aminotransferase 21 U/L (6-50); Albumin Level 3.8 g/dL (3.5-5.1); Alkaline Phosphatase 85 U/L (38-126); Aspartate Amino Transferase 35 U/L (17-59); Bilirubin,Total 0.9 mg/dL (0.2-1.3); Blood Urea Nitrogen 18 mg/dL (9-20); Calcium 7.9 mg/dL (8.4-10.2); Carbon Dioxide > 40 mmol/L (22-30); Chloride 89 mmol/L (98-107); Estimated CRCL calculation 51 ml/min; Estimated Glomerular Filt Rate > 60; Glucose 114 mg/dL (65-110); Potassium 2.7 mmol/L (3.4-5.0); Sodium 137 mmol/L (137-145)
[2023-02-06 14:16] LABS: Erythrocyte Sedimentation Rate 18 mm/hr (0-20)
[2023-02-06] MEDS: POTASSIUM CHLORIDE 20 MEQ ER TABLET 40 MEQ PO (14:53)
== END 2023-02-06 15:33 | disposition home or self-care (01) ==
PROVIDERS: Emergency Provider Emergency Medicine; PCP Family Medicine Adolescent Medicine
DX: E87.6 Hypokalemia (principal); D72.819 Decreased white blood cell count, unspecified; M41.9 Scoliosis, unspecified; M54.9 Dorsalgia, unspecified; G89.29 Other chronic pain; B19.20 Unspecified viral hepatitis C without hepatic coma; I25.2 Old myocardial infarction; K21.9 Gastro-esophageal reflux disease without esophagitis; Z86.718 Personal history of other venous thrombosis and embolism; Z86.711 Personal history of pulmonary embolism; Z87.891 Personal history of nicotine dependence; F12.90 Cannabis use, unspecified, uncomplicated; Z79.891 Long term (current) use of opiate analgesic; Z79.01 Long term (current) use of anticoagulants; Z79.51 Long term (current) use of inhaled steroids
CPT/HCPCS: 36415; 71045; 72072; 72100; 80053; 84484; 85025; 85055; 85652; 93005; 96372; 99284; A9270; J1170; J1885

== ENCOUNTER 2023-02-22 13:18 | Outpatient (CLI) | payer MEDICARE, MEDICAID, SELFPAY ==
[2023-02-22 15:16] LABS: Anion Gap 4 mmol/L (8-16); Blood Urea Nitrogen 14 mg/dL (9-20); Calcium 8.2 mg/dL (8.4-10.2); Carbon Dioxide 37 mmol/L (22-30); Chloride 94 mmol/L (98-107); Estimated Glomerular Filt Rate > 60; Glucose 100 mg/dL (65-110); Potassium 3.5 mmol/L (3.4-5.0); Sodium 135 mmol/L (137-145)
== END 2023-02-22 13:19 | disposition home or self-care (01) ==
PROVIDERS: PCP Family Medicine Adolescent Medicine; Visit Provider Internal Medicine Cardiovascular Disease
DX: E87.6 Hypokalemia (principal)
CPT/HCPCS: 36415; 80048

== ENCOUNTER 2023-02-24 10:56 | Outpatient (CLI) | payer MEDICARE, MEDICAID, SELFPAY ==
--- NOTE | ~2023-02-24 | US_ITS ---
EXAMINATION: US aorta [facility] DATE: 02/24/2023 12:28 CDT INDICATION: Tobacco abuse. TECHNIQUE: Grayscale, color Doppler, and pulsed Doppler images of the aorta and common iliac arteries were obtained. COMPARISON: None. FINDINGS: The proximal aorta measures 3.1 cm greatest sagittal dimension. The mid aorta measures 2.1 cm greates t sagittal dimension. The distal aorta measures 2 cm greatest sagittal dimension. The right common in ternal iliac artery measures 1.4 cm. The left common iliac artery measures 1.3 cm. IMPRESSION: 1. Fusiform suprarenal abdominal aortic aneurysm measuring 3.1 cm. Reviewed, dictated and finalized at location B.
== END 2023-02-24 10:57 | disposition home or self-care (01) ==
PROVIDERS: PCP Family Medicine Adolescent Medicine; Visit Provider Internal Medicine Cardiovascular Disease
DX: Z72.0 Tobacco use (principal); I71.40 Abdominal aortic aneurysm, without rupture, unspecified
CPT/HCPCS: 76706

== ENCOUNTER 2024-05-06 13:29 | Emergency (ER) | payer MEDICARE, SELFPAY ==
--- NOTE | ~2024-05-06 | XR_ITS ---
EXAMINATION: XR chest 1V portable Exam Date/Time: 05/06/2024 17:43 CHIEF JUVENILE PROBATION OFFICER HISTORY: n/v WEAKNESS Comparison: 02/06/2023, 11/16/2021; CTPA 09/19/2020. RESULT: Lines, tubes, and devices: None. Lungs and pleura: Right apical 1.4 cm nodular opacity, lungs otherwise clear. Cardiomediastinal silhouette: Stable. Other: No acute osseous or upper abdominal finding. Scoliosis. Healed right rib fractures. IMPRESSION: No acute cardiopulmonary process. New 1.4 cm right upper lung pulmonary nodule. Recommend nonemergent, outpatient low-dose noncontrast CT of the chest for complete characterization. Reviewed, dictated and finalized at location K. F JUVENILE PROBATION OFFICER
--- NOTE | ~2024-05-06 | CT_ITS ---
EXAMINATION: CT abdomen pelvis w con DATE: 05/06/2024 20:06 INDICATION: N/V pain TECHNIQUE: Computed tomography (CT) of the abdomen and pelvis was performed with 100 mL Omnipaque-350 intravenous contrast. Automated exposure control and iterative reconstruction technique were employe d. The dose-length product was 443.77 mGy-cm. COMPARISON: 09/19/2020. FINDINGS: Lower thorax: Unremarkable Liver: Normal. Biliary/Gallbladder: Gallbladder is absent. No bile duct dilation. Pancreas: Mild atrophy. Spleen: Multiple hypodensities, similar in number and location although many have increased in size. These likely represent cysts, hemangiomas, or granulomas. Adrenals:No mass. Kidneys: No suspicious mass, obstructing stone, or hydronephrosis. GI tract: No small or large bowel dilation. Normal appendix. Mesentery/Peritoneum: No ascites, mass, or free air. Retroperitoneum: No mass. Pelvis: Pelvic organs are within normal limits. Soft Tissues: Redemonstration of the sebaceous or subcutaneous cyst over the right previous muscle. Bones: No acute osseous finding. IMPRESSION: Mild esophagitis/gastritis. Reviewed, dictated and finalized at location K. TATION MANAGER IMPRESSION: Mild esophagitis/gastritis.
[2024-05-06 13:32] VITALS: BP 99/50; PULSE 84; RESP 20; TEMP 36.4; O2SAT 100
--- NOTE | 2024-05-06 15:19 | ED.NAVMDI ---
HPI - Nausea/Vomiting/Diarrhea General Chief complaint: Nausea/Vomiting/Diarrhea <Zechariah Ramirez PA-C - Last Filed: 05/06/24 15:25> Stated complaint: weakness, n/v <Zechariah Ramirez PA-C - Last Filed: 05/06/24 15:25> Time Seen by Provider: 05/06/24 15:18 <Zechariah Ramirez PA-C - Last Filed: 05/06/24 15:25> Focused HPI: this is a 63-year-old male who presents to the ED with chief complaint of generalized weakness, nausea and vomiting over the past week. Reports that he has had daily episodes of diarrhea as well. Denies any GI bleeding symptoms. States that when he gets up and walks around becomes very weak and nauseous. Denies abdominal pain, chest pain, shortness of breath or back pain GENERAL: Well-appearing, well-nourished, and in no acute distress. HEAD: Normocephalic, atraumatic. CHEST: Clear to auscultation. No respiratory distress. HEART: Regular rate and rhythm. NEURO: Alert and oriented x3. Patient screened in triage and initial orders placed. Additional care and disposition to be based upon diagnostic testing and treatment. <Zechariah Ramirez PA-C - Last Filed: 05/06/24 15:25> Focused HPI: This is a 63-year-old male who presents to the ED with chief complaint of generalized weakness, nausea and vomiting over the past week. Reports that he has had daily episodes of diarrhea as well. Denies any GI bleeding symptoms. States that when he gets up and walks around becomes very weak and nauseous. Denies abdominal pain, chest pain, shortness of breath or back pain GENERAL: Well-appearing, well-nourished, and in no acute distress. HEAD: Normocephalic, atraumatic. CHEST: Clear to auscultation. No respiratory distress. HEART: Regular rate and rhythm. NEURO: Alert and oriented x3. Patient screened in triage and initial orders placed. Additional care and disposition to be based upon diagnostic testing and treatment. <Erma Nicolas PA-C - Last Filed: 05/06/24 21:03> Source: patient <ANDREW Suarez Last Filed: 05/06/24 15:25> Mode of arrival: ambulatory <Zechariah Ramirez PA-C - Last Filed: 05/06/24 15:25> EMS <Erma Nicolas PA-C - Last Filed: 05/06/24 21:03> Limitations: no limitations <Zechariah Ramirez PA-C - Last Filed: 05/06/24 15:25> History of Present Illness HPI Narrative: Agree with above HPI. States he has had similar symptoms in the past and was diagnosed with pulmonary embolism. He is unsure when this was. He is on Xarelto and reports compliance with this. Denies any missed doses. Denies chest pain or shortness of breath at this time. Denies exertional chest pain/shortness of breath. Hx of gerd, Hep C, alcohol abuse, pAFIB. <Erma Nicolas PA-C - Last Filed: 05/06/24 21:03> Related Data Home medications: Home Medications Medication Instructions Recorded Confirmed vitamin B complex 1 tablet PO DAILY 03/09/21 02/16/23 <Zechariah Ramirez PA-C - Last Filed: 05/06/24 15:25> Allergies/Adverse reactions: Allergies Allergy/AdvReac Type Severity Reaction Status Date / Time amoxicillin [From Augmentin] AdvReac Severe Diarrhea Verified 02/16/23 14:10 clavulanic acid AdvReac Severe Diarrhea Verified 02/16/23 14:10 [From Augmentin] <Zechariah Ramirez PA-C - Last Filed: 05/06/24 15:25> Review of Systems Review of Systems: All systems reviewed & are unremarkable except as noted in HPI. <Erma Nicolas PA-C - Last Filed: 05/06/24 21:03> All systems reviewed & are unremarkable except as noted in HPI and below <Erma Nicolas PA-C - Last Filed: 05/06/24 21:03> PMFSH Past Medical History Medical History: Medical History Abnormal CT scan, esophagus Alcohol abuse Colon cancer screening Constipation Current use of termite helper anticoagulation Gastritis Gastroesophageal reflux disease Hepatitis C The patient stated that he was supposed to start treatment but the insurance would not pay for the medication. Hepatitis C antibody positive in blood History of atrial flutter History of pulmonary embolism 09/16 01/14 Left leg DVT (~12/2018) 01/14 Macrocytic anemia Non-STEMI (non-ST elevated myocardial infarction) (~12/2018) Related to submassive pulmonary embolism. Paroxysmal atrial flutter 01/14 Scoliosis Thrombocytopenia <Zechariah Ramirez PA-C - Last Filed: 05/06/24 15:25> Surgical History Surgical History: Surgical History History of colonoscopy 03/19/21 History of facial surgery Right orbit repair. History of orthopedic surgery Surgical fixation left tib-fib, right foot surgery. Hx laparoscopic cholecystectomy 08/2022 Hx of hemorrhoidectomy <Zechariah Ramirez PA-C - Last Filed: 05/06/24 15:25> Family History Family History: Family History Father Heart disease age 68 of heart disease Mother Dementia age 94, had dementia Unknown Heart disease family history of heart disease, kidney disease, and possible pulmonary emboli <Zechariah Ramirez PA-C - Last Filed: 05/06/24 15:25> Social History Social History: Social History Social History: The patient is single and lives in his own trailer in [place]. He has no children. He is retired, on disability, and used to work in maintenance. He smokes about half a pack of cigarettes per day. At 1 point time he drank 3- 8 alcoholic beverages a day, but for the last several months he has not been drinking much due to feeling poorly. He denies illicit substance use. He designates his friend, Aryan Yañez, as his surrogate decision maker and he wishes to be a full code. Smoking packs per day: 0.75 Smoking cigarettes per day: 15.0 Years smoked: 30 Smoking pack-years: 22.50 Smoking status: Former smoker (Quit in June,) Tobacco type: cigarettes Second hand tobacco smoke exposure: No Smoking end date: 07/19/21 Alcohol intake: former Drinks per week: 20 Alcohol use details: vodka and grapefruit juice Substance use: current Substance use type: marijuana Other substance usage details: occasionally Last use: 07/29/20 Lack of Transportation: YES Lack of Food: Never True Current Housing: I Have Housing Concerned About Future Housing: No Difficulty Paying Gas/Electric Bills: YES Difficulty Paying for Meds: No Currently Unemployed: No Education: High School Diploma/GED Difficulty w/ Childcare or Family Care: No Living arrangements: alone Occupation/Education: unemployed Gender identity (if verbalized by the patient): Male Sexual Orientation (if Verbalized by the Patient): Straight or Heterosexual Spiritual care concerns: No Agree to blood products: Yes <Zechariah Ramirez PA-C - Last Filed: 05/06/24 15:25> Exam Narrative: GENERAL: Appears older than stated age, well-nourished, non-toxic, in no acute distress. HEAD: Normocephalic, atraumatic. RESPIRATORY: Airway patent, respirations nonlabored. Clear to auscultation bilaterally, no rales, rhonchi, wheezing. CARDIOVASCULAR: Regular rate and rhythm without murmurs, rubs, or gallops. ABDOMINAL: Soft, no significant tenderness throughout abdomen, nondistended. Normoactive BS. MUSCULOSKELETAL: Moves all extremities. No gross deformities. SKIN: Warm, dry, normal color. NEURO: A&O X3. Speech clear. No ataxic movements. PSYCHIATRIC: Appropriate mood and affect. Normal interaction. <Erma Nicolas PA-C - Last Filed: 05/06/24 21:03> Course Vital Signs Vital signs: Vital Signs Temperature 97.5 F L 05/06/24 13:32 Pulse Rate 84 05/06/24 13:32 Respiratory Rate 20 05/06/24 13:32 Blood Pressure 99/50 L 05/06/24 13:32 Pulse Oximetry 100 05/06/24 13:32 Oxygen Delivery Room Air 05/06/24 13:32 Temperature 97.5 F L 05/06/24 13:32 Pulse Rate 67 05/06/24 17:10 Respiratory Rate 16 05/06/24 17:10 Blood Pressure 119/81 05/06/24 17:10 Pulse Oximetry 98 05/06/24 17:10 Oxygen Delivery Room Air 05/06/24 13:32 <Zechariah Ramirez PA-C - Last Filed: 05/06/24 15:25> Vital Signs Temperature 97.5 F L 05/06/24 13:32 Pulse Rate 84 05/06/24 13:32 Respiratory Rate 20 05/06/24 13:32 Blood Pressure 99/50 L 05/06/24 13:32 Pulse Oximetry 100 05/06/24 13:32 Oxygen Delivery Room Air 05/06/24 13:32 Temperature 97.5 F L 05/06/24 13:32 Pulse Rate 67 05/06/24 17:10 Respiratory Rate 16 05/06/24 17:10 Blood Pressure 119/81 05/06/24 17:10 Pulse Oximetry 98 05/06/24 17:10 Oxygen Delivery Room Air 05/06/24 13:32 <Erma Nicolas PA-C - Last Filed: 05/06/24 21:03> MDM - Nausea/Vomiting/Diarrhea MDM Narrative Medical decision making narrative: Patient presented to ED with around 1 week history of nausea, dry heaving, vomiting. States symptoms worse when he is up and moving around. Denies nausea currently at rest. Vital signs are stable. Patient was possibly borderline hypotensive upon initial arrival, however this was resolved by the time of my evaluation. He is afebrile here. No significant abdominal pain or tenderness on exam. Cbc is unremarkable. No leukocytosis. Stable H&H. CMP with minimal PANDA. Creatinine today 1.5. Baseline per records closer to 1 though patient has had similar results in the past. Fluids ongoing. Lactic acid within normal range at 1.6. Magnesium was borderline at 1.6. IV replacement given. EKG is nonischemic. Troponin undetectable. Chest x-ray is clear aside from an incidental pulmonary nodule which I made patient aware of. CT abd/pelvis was obtained and showing gastritis/esophagitis. Patient given Zofran, GI cocktail, 2 L fluid in the ED. He is feeling improved upon re-evaluation. Was able to ambulate throughout the ED without having recurrent sx's/ nausea or vomiting. Discussed lab and imaging findings, overall fairly reassuring w/u. Feel symptoms are likely related to gastritis/possible PUD picture. It does appear patient is on Protonix. Will prescribe sucralfate. Will also prescribe Zofran for home. Will refer to GI for further evaluation if needed. Also recommended close f/u with PCP. Patient given strict return precautions. He agrees with plan. Discharged in stable condition. <Erma Nicolas PA-C - Last Filed: 05/06/24 21:03> Medical Records Attestation: I reviewed the patient's medical records. <Erma Nicolas PA-C - Last Filed: 05/06/24 21:03> Lab Data Attestation: I reviewed the patient's lab results. <Erma Nicolas PA-C - Last Filed: 05/06/24 21:03> Result diagrams: 05/06/24 15:27 05/06/24 15:27 <Zechariah Ramirez PA-C - Last Filed: 05/06/24 15:25> Labs: Lab Results 05/06/24 05/06/24 05/06/24 Range/Units 15:27 15:27 15:27 WBC 8.7 (4.5-10.0) K/mm3 RBC 4.60 (4.6-6.20) M/mm3 Hgb 14.2 (14.0-18.0) g/dL Hct 42.2 (42.0-52.0) % MCV 91.7 (80-100) fl MCH 30.9 (26-34) pg MCHC 33.6 (32-36) g/dl RDW 12.1 (11.5-14.5) % Plt Count 134 L D (150-375) k/mm3 MPV 10.9 H (7.4-10.4) fl Immature Gran % (Auto) 0.5 (0-0.5) % Neut % (Auto) 77.2 H (45.5-73.1) % Lymph % (Auto) 15.5 L (18.3-44.2) % [place] % (Auto) 5.7 (2.6-8.5) % Eos % (Auto) 0.6 (0-4.4) % Baso % (Auto) 0.5 (0.2-1.2) % Lymph # (Auto) 1.34 (0.9-3.2) K/mm3 [place] # (Auto) 0.5 (0.1-0.6) K/mm3 Eos # (Auto) 0.1 (0-0.3) K/mm3 Baso # (Auto) 0.0 (0.0-0.1) K/mm3 Abs Immat Gran (auto) 0.04 H (0.00-0.031) K/mm3 Absolute Neuts (auto) 6.7 (1.3-6.7) K/mm3 Absolute Nucleated RBC 0.000 (0.0-0.012) K/mm3 Nucleated RBC % 0.0 (0.0-0.2) % % Immature Plt Fraction 5.2 (0.9-11.2) % Sodium Cancelled 137 Potassium Cancelled 4.2 Chloride Cancelled Carbon Dioxide Anion Gap BUN Creatinine Estim Creat Clear Calc Estimated GFR Glucose Lactic Acid (0.7-2.0) mmol/L Calcium Phosphorus (2.5-4.5) mg/dL Magnesium (1.6-2.3) mg/dL Total Bilirubin AST ALT Alkaline Phosphatase Troponin I (0.000-0.034) ng/mL Total Protein Albumin Lipase 05/06/24 05/06/24 05/06/24 Range/Units 15:27 15:27 15:27 WBC (4.5-10.0) K/mm3 RBC (4.6-6.20) M/mm3 Hgb (14.0-18.0) g/dL Hct (42.0-52.0) % MCV (80-100) fl MCH (26-34) pg MCHC (32-36) g/dl RDW (11.5-14.5) % Plt Count (150-375) k/mm3 MPV (7.4-10.4) fl Immature Gran % (Auto) (0-0.5) % Neut % (Auto) (45.5-73.1) % Lymph % (Auto) (18.3-44.2) % [place] % (Auto) (2.6-8.5) % Eos % (Auto) (0-4.4) % Baso % (Auto) (0.2-1.2) % Lymph # (Auto) (0.9-3.2) K/mm3 [place] # (Auto) (0.1-0.6) K/mm3 Eos # (Auto) (0-0.3) K/mm3 Baso # (Auto) (0.0-0.1) K/mm3 Abs Immat Gran (auto) (0.00-0.031) K/mm3 Absolute Neuts (auto) (1.3-6.7) K/mm3 Absolute Nucleated RBC (0.0-0.012) K/mm3 Nucleated RBC % (0.0-0.2) % % Immature Plt Fraction (0.9-11.2) % Sodium Potassium Chloride 99 Carbon Dioxide Cancelled 36 H Anion Gap Cancelled 2 L BUN Cancelled Creatinine Estim Creat Clear Calc Estimated GFR Glucose Lactic Acid (0.7-2.0) mmol/L Calcium Phosphorus (2.5-4.5) mg/dL Magnesium (1.6-2.3) mg/dL Total Bilirubin AST ALT Alkaline Phosphatase Troponin I (0.000-0.034) ng/mL Total Protein Albumin Lipase 05/06/24 05/06/24 05/06/24 Range/Units 15:27 15:27 15:27 WBC (4.5-10.0) K/mm3 RBC (4.6-6.20) M/mm3 Hgb (14.0-18.0) g/dL Hct (42.0-52.0) % MCV (80-100) fl MCH (26-34) pg MCHC (32-36) g/dl RDW (11.5-14.5) % Plt Count (150-375) k/mm3 MPV (7.4-10.4) fl Immature Gran % (Auto) (0-0.5) % Neut % (Auto) (45.5-73.1) % Lymph % (Auto) (18.3-44.2) % [place] % (Auto) (2.6-8.5) % Eos % (Auto) (0-4.4) % Baso % (Auto) (0.2-1.2) % Lymph # (Auto) (0.9-3.2) K/mm3 [place] # (Auto) (0.1-0.6) K/mm3 Eos # (Auto) (0-0.3) K/mm3 Baso # (Auto) (0.0-0.1) K/mm3 Abs Immat Gran (auto) (0.00-0.031) K/mm3 Absolute Neuts (auto) (1.3-6.7) K/mm3 Absolute Nucleated RBC (0.0-0.012) K/mm3 Nucleated RBC % (0.0-0.2) % % Immature Plt Fraction (0.9-11.2) % Sodium Potassium Chloride Carbon Dioxide Anion Gap BUN 14 Creatinine Cancelled 1.50 H Estim Creat Clear Calc Cancelled 42 Estimated GFR Cancelled Glucose Lactic Acid (0.7-2.0) mmol/L Calcium Phosphorus (2.5-4.5) mg/dL Magnesium (1.6-2.3) mg/dL Total Bilirubin AST ALT Alkaline Phosphatase Troponin I (0.000-0.034) ng/mL Total Protein Albumin Lipase 05/06/24 05/06/24 05/06/24 Range/Units 15:27 15:27 15:27 WBC (4.5-10.0) K/mm3 RBC (4.6-6.20) M/mm3 Hgb (14.0-18.0) g/dL Hct (42.0-52.0) % MCV (80-100) fl MCH (26-34) pg MCHC (32-36) g/dl RDW (11.5-14.5) % Plt Count (150-375) k/mm3 MPV (7.4-10.4) fl Immature Gran % (Auto) (0-0.5) % Neut % (Auto) (45.5-73.1) % Lymph % (Auto) (18.3-44.2) % [place] % (Auto) (2.6-8.5) % Eos % (Auto) (0-4.4) % Baso % (Auto) (0.2-1.2) % Lymph # (Auto) (0.9-3.2) K/mm3 [place] # (Auto) (0.1-0.6) K/mm3 Eos # (Auto) (0-0.3) K/mm3 Baso # (Auto) (0.0-0.1) K/mm3 Abs Immat Gran (auto) (0.00-0.031) K/mm3 Absolute Neuts (auto) (1.3-6.7) K/mm3 Absolute Nucleated RBC (0.0-0.012) K/mm3 Nucleated RBC % (0.0-0.2) % % Immature Plt Fraction (0.9-11.2) % Sodium Potassium Chloride Carbon Dioxide Anion Gap BUN Creatinine Estim Creat Clear Calc Estimated GFR 47 L Glucose Cancelled 119 H Lactic Acid 1.6 (0.7-2.0) mmol/L Calcium Cancelled 8.8 Phosphorus 3.1 (2.5-4.5) mg/dL Magnesium 1.6 (1.6-2.3) mg/dL Total Bilirubin Cancelled AST ALT Alkaline Phosphatase Troponin I (0.000-0.034) ng/mL Total Protein Albumin Lipase 05/06/24 05/06/24 05/06/24 Range/Units 15:27 15:27 15:27 WBC (4.5-10.0) K/mm3 RBC (4.6-6.20) M/mm3 Hgb (14.0-18.0) g/dL Hct (42.0-52.0) % MCV (80-100) fl MCH (26-34) pg MCHC (32-36) g/dl RDW (11.5-14.5) % Plt Count (150-375) k/mm3 MPV (7.4-10.4) fl Immature Gran % (Auto) (0-0.5) % Neut % (Auto) (45.5-73.1) % Lymph % (Auto) (18.3-44.2) % [place] % (Auto) (2.6-8.5) % Eos % (Auto) (0-4.4) % Baso % (Auto) (0.2-1.2) % Lymph # (Auto) (0.9-3.2) K/mm3 [place] # (Auto) (0.1-0.6) K/mm3 Eos # (Auto) (0-0.3) K/mm3 Baso # (Auto) (0.0-0.1) K/mm3 Abs Immat Gran (auto) (0.00-0.031) K/mm3 Absolute Neuts (auto) (1.3-6.7) K/mm3 Absolute Nucleated RBC (0.0-0.012) K/mm3 Nucleated RBC % (0.0-0.2) % % Immature Plt Fraction (0.9-11.2) % Sodium Potassium Chloride Carbon Dioxide Anion Gap BUN Creatinine Estim Creat Clear Calc Estimated GFR Glucose Lactic Acid (0.7-2.0) mmol/L Calcium Phosphorus (2.5-4.5) mg/dL Magnesium (1.6-2.3) mg/dL Total Bilirubin 1.0 AST Cancelled 29 ALT Cancelled 16 Alkaline Phosphatase Cancelled Troponin I (0.000-0.034) ng/mL Total Protein Albumin Lipase 05/06/24 05/06/24 05/06/24 Range/Units 15:27 15:27 15:27 WBC (4.5-10.0) K/mm3 RBC (4.6-6.20) M/mm3 Hgb (14.0-18.0) g/dL Hct (42.0-52.0) % MCV (80-100) fl MCH (26-34) pg MCHC (32-36) g/dl RDW (11.5-14.5) % Plt Count (150-375) k/mm3 MPV (7.4-10.4) fl Immature Gran % (Auto) (0-0.5) % Neut % (Auto) (45.5-73.1) % Lymph % (Auto) (18.3-44.2) % [place] % (Auto) (2.6-8.5) % Eos % (Auto) (0-4.4) % Baso % (Auto) (0.2-1.2) % Lymph # (Auto) (0.9-3.2) K/mm3 [place] # (Auto) (0.1-0.6) K/mm3 Eos # (Auto) (0-0.3) K/mm3 Baso # (Auto) (0.0-0.1) K/mm3 Abs Immat Gran (auto) (0.00-0.031) K/mm3 Absolute Neuts (auto) (1.3-6.7) K/mm3 Absolute Nucleated RBC (0.0-0.012) K/mm3 Nucleated RBC % (0.0-0.2) % % Immature Plt Fraction (0.9-11.2) % Sodium Potassium Chloride Carbon Dioxide Anion Gap BUN Creatinine Estim Creat Clear Calc Estimated GFR Glucose Lactic Acid (0.7-2.0) mmol/L Calcium Phosphorus (2.5-4.5) mg/dL Magnesium (1.6-2.3) mg/dL Total Bilirubin AST ALT Alkaline Phosphatase 120 Troponin I < 0.012 (0.000-0.034) ng/mL Total Protein Cancelled 7.0 Albumin Cancelled 4.1 Lipase Cancelled 05/06/24 Range/Units 15:27 WBC (4.5-10.0) K/mm3 RBC (4.6-6.20) M/mm3 Hgb (14.0-18.0) g/dL Hct (42.0-52.0) % MCV (80-100) fl MCH (26-34) pg MCHC (32-36) g/dl RDW (11.5-14.5) % Plt Count (150-375) k/mm3 MPV (7.4-10.4) fl Immature Gran % (Auto) (0-0.5) % Neut % (Auto) (45.5-73.1) % Lymph % (Auto) (18.3-44.2) % [place] % (Auto) (2.6-8.5) % Eos % (Auto) (0-4.4) % Baso % (Auto) (0.2-1.2) % Lymph # (Auto) (0.9-3.2) K/mm3 [place] # (Auto) (0.1-0.6) K/mm3 Eos # (Auto) (0-0.3) K/mm3 Baso # (Auto) (0.0-0.1) K/mm3 Abs Immat Gran (auto) (0.00-0.031) K/mm3 Absolute Neuts (auto) (1.3-6.7) K/mm3 Absolute Nucleated RBC (0.0-0.012) K/mm3 Nucleated RBC % (0.0-0.2) % % Immature Plt Fraction (0.9-11.2) % Sodium Potassium Chloride Carbon Dioxide Anion Gap BUN Creatinine Estim Creat Clear Calc Estimated GFR Glucose Lactic Acid (0.7-2.0) mmol/L Calcium Phosphorus (2.5-4.5) mg/dL Magnesium (1.6-2.3) mg/dL Total Bilirubin AST ALT Alkaline Phosphatase Troponin I (0.000-0.034) ng/mL Total Protein Albumin Lipase 56 <Zechariah Ramirez PA-C - Last Filed: 05/06/24 15:25> Lab Results 05/06/24 05/06/24 05/06/24 Range/Units 15:27 15:27 15:27 WBC 8.7 (4.5-10.0) K/mm3 RBC 4.60 (4.6-6.20) M/mm3 Hgb 14.2 (14.0-18.0) g/dL Hct 42.2 (42.0-52.0) % MCV 91.7 (80-100) fl MCH 30.9 (26-34) pg MCHC 33.6 (32-36) g/dl RDW 12.1 (11.5-14.5) % Plt Count 134 L D (150-375) k/mm3 MPV 10.9 H (7.4-10.4) fl Immature Gran % (Auto) 0.5 (0-0.5) % Neut % (Auto) 77.2 H (45.5-73.1) % Lymph % (Auto) 15.5 L (18.3-44.2) % [place] % (Auto) 5.7 (2.6-8.5) % Eos % (Auto) 0.6 (0-4.4) % Baso % (Auto) 0.5 (0.2-1.2) % Lymph # (Auto) 1.34 (0.9-3.2) K/mm3 [place] # (Auto) 0.5 (0.1-0.6) K/mm3 Eos # (Auto) 0.1 (0-0.3) K/mm3 Baso # (Auto) 0.0 (0.0-0.1) K/mm3 Abs Immat Gran (auto) 0.04 H (0.00-0.031) K/mm3 Absolute Neuts (auto) 6.7 (1.3-6.7) K/mm3 Absolute Nucleated RBC 0.000 (0.0-0.012) K/mm3 Nucleated RBC % 0.0 (0.0-0.2) % % Immature Plt Fraction 5.2 (0.9-11.2) % Sodium Cancelled 137 Potassium Cancelled 4.2 Chloride Cancelled Carbon Dioxide Anion Gap BUN Creatinine Estim Creat Clear Calc Estimated GFR Glucose Lactic Acid (0.7-2.0) mmol/L Calcium Phosphorus (2.5-4.5) mg/dL Magnesium (1.6-2.3) mg/dL Total Bilirubin AST ALT Alkaline Phosphatase Troponin I (0.000-0.034) ng/mL Total Protein Albumin Lipase 05/06/24 05/06/24 05/06/24 Range/Units 15:27 15:27 15:27 WBC (4.5-10.0) K/mm3 RBC (4.6-6.20) M/mm3 Hgb (14.0-18.0) g/dL Hct (42.0-52.0) % MCV (80-100) fl MCH (26-34) pg MCHC (32-36) g/dl RDW (11.5-14.5) % Plt Count (150-375) k/mm3 MPV (7.4-10.4) fl Immature Gran % (Auto) (0-0.5) % Neut % (Auto) (45.5-73.1) % Lymph % (Auto) (18.3-44.2) % [place] % (Auto) (2.6-8.5) % Eos % (Auto) (0-4.4) % Baso % (Auto) (0.2-1.2) % Lymph # (Auto) (0.9-3.2) K/mm3 [place] # (Auto) (0.1-0.6) K/mm3 Eos # (Auto) (0-0.3) K/mm3 Baso # (Auto) (0.0-0.1) K/mm3 Abs Immat Gran (auto) (0.00-0.031) K/mm3 Absolute Neuts (auto) (1.3-6.7) K/mm3 Absolute Nucleated RBC (0.0-0.012) K/mm3 Nucleated RBC % (0.0-0.2) % % Immature Plt Fraction (0.9-11.2) % Sodium Potassium Chloride 99 Carbon Dioxide Cancelled 36 H Anion Gap Cancelled 2 L BUN Cancelled Creatinine Estim Creat Clear Calc Estimated GFR Glucose Lactic Acid (0.7-2.0) mmol/L Calcium Phosphorus (2.5-4.5) mg/dL Magnesium (1.6-2.3) mg/dL Total Bilirubin AST ALT Alkaline Phosphatase Troponin I (0.000-0.034) ng/mL Total Protein Albumin Lipase 05/06/24 05/06/24 05/06/24 Range/Units 15:27 15:27 15:27 WBC (4.5-10.0) K/mm3 RBC (4.6-6.20) M/mm3 Hgb (14.0-18.0) g/dL Hct (42.0-52.0) % MCV (80-100) fl MCH (26-34) pg MCHC (32-36) g/dl RDW (11.5-14.5) % Plt Count (150-375) k/mm3 MPV (7.4-10.4) fl Immature Gran % (Auto) (0-0.5) % Neut % (Auto) (45.5-73.1) % Lymph % (Auto) (18.3-44.2) % [place] % (Auto) (2.6-8.5) % Eos % (Auto) (0-4.4) % Baso % (Auto) (0.2-1.2) % Lymph # (Auto) (0.9-3.2) K/mm3 [place] # (Auto) (0.1-0.6) K/mm3 Eos # (Auto) (0-0.3) K/mm3 Baso # (Auto) (0.0-0.1) K/mm3 Abs Immat Gran (auto) (0.00-0.031) K/mm3 Absolute Neuts (auto) (1.3-6.7) K/mm3 Absolute Nucleated RBC (0.0-0.012) K/mm3 Nucleated RBC % (0.0-0.2) % % Immature Plt Fraction (0.9-11.2) % Sodium Potassium Chloride Carbon Dioxide Anion Gap BUN 14 Creatinine Cancelled 1.50 H Estim Creat Clear Calc Cancelled 42 Estimated GFR Cancelled Glucose Lactic Acid (0.7-2.0) mmol/L Calcium Phosphorus (2.5-4.5) mg/dL Magnesium (1.6-2.3) mg/dL Total Bilirubin AST ALT Alkaline Phosphatase Troponin I (0.000-0.034) ng/mL Total Protein Albumin Lipase 05/06/24 05/06/24 05/06/24 Range/Units 15:27 15:27 15:27 WBC (4.5-10.0) K/mm3 RBC (4.6-6.20) M/mm3 Hgb (14.0-18.0) g/dL Hct (42.0-52.0) % MCV (80-100) fl MCH (26-34) pg MCHC (32-36) g/dl RDW (11.5-14.5) % Plt Count (150-375) k/mm3 MPV (7.4-10.4) fl Immature Gran % (Auto) (0-0.5) % Neut % (Auto) (45.5-73.1) % Lymph % (Auto) (18.3-44.2) % [place] % (Auto) (2.6-8.5) % Eos % (Auto) (0-4.4) % Baso % (Auto) (0.2-1.2) % Lymph # (Auto) (0.9-3.2) K/mm3 [place] # (Auto) (0.1-0.6) K/mm3 Eos # (Auto) (0-0.3) K/mm3 Baso # (Auto) (0.0-0.1) K/mm3 Abs Immat Gran (auto) (0.00-0.031) K/mm3 Absolute Neuts (auto) (1.3-6.7) K/mm3 Absolute Nucleated RBC (0.0-0.012) K/mm3 Nucleated RBC % (0.0-0.2) % % Immature Plt Fraction (0.9-11.2) % Sodium Potassium Chloride Carbon Dioxide Anion Gap BUN Creatinine Estim Creat Clear Calc Estimated GFR 47 L Glucose Cancelled 119 H Lactic Acid 1.6 (0.7-2.0) mmol/L Calcium Cancelled 8.8 Phosphorus 3.1 (2.5-4.5) mg/dL Magnesium 1.6 (1.6-2.3) mg/dL Total Bilirubin Cancelled AST ALT Alkaline Phosphatase Troponin I (0.000-0.034) ng/mL Total Protein Albumin Lipase 05/06/24 05/06/24 05/06/24 Range/Units 15:27 15:27 15:27 WBC (4.5-10.0) K/mm3 RBC (4.6-6.20) M/mm3 Hgb (14.0-18.0) g/dL Hct (42.0-52.0) % MCV (80-100) fl MCH (26-34) pg MCHC (32-36) g/dl RDW (11.5-14.5) % Plt Count (150-375) k/mm3 MPV (7.4-10.4) fl Immature Gran % (Auto) (0-0.5) % Neut % (Auto) (45.5-73.1) % Lymph % (Auto) (18.3-44.2) % [place] % (Auto) (2.6-8.5) % Eos % (Auto) (0-4.4) % Baso % (Auto) (0.2-1.2) % Lymph # (Auto) (0.9-3.2) K/mm3 [place] # (Auto) (0.1-0.6) K/mm3 Eos # (Auto) (0-0.3) K/mm3 Baso # (Auto) (0.0-0.1) K/mm3 Abs Immat Gran (auto) (0.00-0.031) K/mm3 Absolute Neuts (auto) (1.3-6.7) K/mm3 Absolute Nucleated RBC (0.0-0.012) K/mm3 Nucleated RBC % (0.0-0.2) % % Immature Plt Fraction (0.9-11.2) % Sodium Potassium Chloride Carbon Dioxide Anion Gap BUN Creatinine Estim Creat Clear Calc Estimated GFR Glucose Lactic Acid (0.7-2.0) mmol/L Calcium Phosphorus (2.5-4.5) mg/dL Magnesium (1.6-2.3) mg/dL Total Bilirubin 1.0 AST Cancelled 29 ALT Cancelled 16 Alkaline Phosphatase Cancelled Troponin I (0.000-0.034) ng/mL Total Protein Albumin Lipase 05/06/24 05/06/24 05/06/24 Range/Units 15:27 15:27 15:27 WBC (4.5-10.0) K/mm3 RBC (4.6-6.20) M/mm3 Hgb (14.0-18.0) g/dL Hct (42.0-52.0) % MCV (80-100) fl MCH (26-34) pg MCHC (32-36) g/dl RDW (11.5-14.5) % Plt Count (150-375) k/mm3 MPV (7.4-10.4) fl Immature Gran % (Auto) (0-0.5) % Neut % (Auto) (45.5-73.1) % Lymph % (Auto) (18.3-44.2) % [place] % (Auto) (2.6-8.5) % Eos % (Auto) (0-4.4) % Baso % (Auto) (0.2-1.2) % Lymph # (Auto) (0.9-3.2) K/mm3 [place] # (Auto) (0.1-0.6) K/mm3 Eos # (Auto) (0-0.3) K/mm3 Baso # (Auto) (0.0-0.1) K/mm3 Abs Immat Gran (auto) (0.00-0.031) K/mm3 Absolute Neuts (auto) (1.3-6.7) K/mm3 Absolute Nucleated RBC (0.0-0.012) K/mm3 Nucleated RBC % (0.0-0.2) % % Immature Plt Fraction (0.9-11.2) % Sodium Potassium Chloride Carbon Dioxide Anion Gap BUN Creatinine Estim Creat Clear Calc Estimated GFR Glucose Lactic Acid (0.7-2.0) mmol/L Calcium Phosphorus (2.5-4.5) mg/dL Magnesium (1.6-2.3) mg/dL Total Bilirubin AST ALT Alkaline Phosphatase 120 Troponin I < 0.012 (0.000-0.034) ng/mL Total Protein Cancelled 7.0 Albumin Cancelled 4.1 Lipase Cancelled 05/06/24 Range/Units 15:27 WBC (4.5-10.0) K/mm3 RBC (4.6-6.20) M/mm3 Hgb (14.0-18.0) g/dL Hct (42.0-52.0) % MCV (80-100) fl MCH (26-34) pg MCHC (32-36) g/dl RDW (11.5-14.5) % Plt Count (150-375) k/mm3 MPV (7.4-10.4) fl Immature Gran % (Auto) (0-0.5) % Neut % (Auto) (45.5-73.1) % Lymph % (Auto) (18.3-44.2) % [place] % (Auto) (2.6-8.5) % Eos % (Auto) (0-4.4) % Baso % (Auto) (0.2-1.2) % Lymph # (Auto) (0.9-3.2) K/mm3 [place] # (Auto) (0.1-0.6) K/mm3 Eos # (Auto) (0-0.3) K/mm3 Baso # (Auto) (0.0-0.1) K/mm3 Abs Immat Gran (auto) (0.00-0.031) K/mm3 Absolute Neuts (auto) (1.3-6.7) K/mm3 Absolute Nucleated RBC (0.0-0.012) K/mm3 Nucleated RBC % (0.0-0.2) % % Immature Plt Fraction (0.9-11.2) % Sodium Potassium Chloride Carbon Dioxide Anion Gap BUN Creatinine Estim Creat Clear Calc Estimated GFR Glucose Lactic Acid (0.7-2.0) mmol/L Calcium Phosphorus (2.5-4.5) mg/dL Magnesium (1.6-2.3) mg/dL Total Bilirubin AST ALT Alkaline Phosphatase Troponin I (0.000-0.034) ng/mL Total Protein Albumin Lipase 56 <rEma Nicolas PA-C - Last Filed: 05/06/24 21:03> Imaging Data Attestation: I personally reviewed and interpreted this imaging study as follows: <Erma Nicolas PA-C - Last Filed: 05/06/24 21:03> Radiologist's impression: ITS Impressions Chest X-Ray 05/06/24 17:59 IMPRESSION: No acute cardiopulmonary process. New 1.4 cm right upper lung pulmonary nodule. Recommend nonemergent, outpatient low-dose noncontrast CT of the chest for complete characterization. Abdomen/Pelvis CT 05/06/24 20:14 IMPRESSION: Mild esophagitis/gastritis. <ANDREW Ramires Last Filed: 05/06/24 21:03> ECG Data EKG #1: Attestation: I personally reviewed and interpreted this ECG as follows: <ANDREW Ramires Last Filed: 05/06/24 21:03> ECG completion date: 05/06/24 <ANDREW Ramires Last Filed: 05/06/24 21:03> ECG completion time: 16:27 <ANDREW Ramires Last Filed: 05/06/24 21:03> EKG Interpretation: normal rate (65), sinus rhythm and no ST changes <ANDREW Ramires Last Filed: 05/06/24 21:03> Discharge Plan Discharge Clinical Impression: Incidental pulmonary nodule Gastritis Qualifiers: Gastritis type: unspecified gastritis Chronicity: acute Gastritis bleeding: without bleeding Qualified Code(s): K29.00 - Acute gastritis without bleeding Nausea and vomiting Qualifiers: Vomiting type: unspecified Qualified Code(s): R11.2 - Nausea with vomiting, unspecified <ANDREW Suarez Last Filed: 05/06/24 15:25> Patient Disposition: Home, Self-Care <ANDREW Suarez Last Filed: 05/06/24 15:25> Condition: Stable <ANDREW Suarez Last Filed: 05/06/24 15:25> Instructions: Antibiotic Form, Gastritis (ED), Clear Liquid Diet (ED), Diet for Stomach Ulcers and Gastritis (ED), Acute Nausea and Vomiting (ED) <ANDREW Suarez Last Filed: 05/06/24 15:25> Additional Instructions: Continue home pantoprazole. Take sucralfate twice daily as prescribed. Utilize Zofran as needed for further nausea. Avoid greasy/spicy/acidic foods, alcohol, ibuprofen as these could cause further irritation to the stomach. Increase fluid intake. Recommend electrolyte rich fluids, gatorade, pedialyte, body armour. Recommend clear liquids or bland diet until symptoms improve, such as bananas, rice, applesauce, toast, or crackers. Follow up with your primary care doctor and/or GI for further evaluation. Call office to make appointments. Return to the ED if you experience worsening or severe symptoms, unable to keep down food or drink, severe pain, fevers, rectal bleeding, vomiting blood, or any other symptoms of concern. Your chest x-ray showed a up pulmonary nodule in the right upper lung. You will need further imaging for this as an outpatient. Follow-up with your primary care doctor for this. <Zechariah Ramirez PA-C - Last Filed: 05/06/24 15:25> Prescriptions: New sucralfate 1 gram tablet 1 g PO BID Qty: 20 0RF ondansetron 4 mg tablet,disintegrating 4 mg PO Q8H PRN (Reason: nausea and vomiting) Qty: 15 0RF No Action furosemide [Lasix] 20 mg tablet 20 mg PO DAILY PRN (Reason: Edema) Qty: 30 5RF vitamin B complex Tablet 1 tablet PO DAILY potassium chloride [Klor-Con M20] 20 mEq tablet,ER particles/crystals 40 meq PO BID 5 Days Qty: 20 0RF tamsulosin 0.4 mg capsule 0.4 mg PO DAILY Qty: 30 8RF sertraline 100 mg tablet 100 mg PO DAILY Qty: 30 5RF metoprolol succinate 25 mg tablet extended release 24 hr 25 mg PO DAILY Qty: 90 3RF pantoprazole 40 mg tablet,delayed release (DR/EC) 40 mg PO Q12HR 30 Days Qty: 60 7RF hydroxyzine HCl 25 mg tablet 25 mg PO TID Qty: 90 5RF albuterol sulfate 90 mcg/actuation HFA aerosol inhaler See Rx Instructions .ROUTE .COMPLEX Qty: 9 0RF Dose Instruction: INHALE 2 PUFFS BY MOUTH 4 TIMES DAILY NEEDED FOR SHORTNESS OF BREATH FOR WHEEZING Rx Instructions: INHALE 2 PUFFS BY MOUTH 4 TIMES DAILY NEEDED FOR SHORTNESS OF BREATH FOR WHEEZING buspirone 15 mg tablet 15 mg PO QID Qty: 120 5RF carbamazepine 200 mg tablet 400 mg PO BID Qty: 120 5RF Xarelto 10 mg tablet 10 mg PO DAILY Qty: 30 2RF Hold Instructions: Resume on 03/31/20. RESTART Tuesday, March 31, 2020. morphine 60 mg tablet extended release 60 mg PO Q12H Qty: 60 0RF <Zechariah Ramirez PA-C - Last Filed: 05/06/24 15:25> Follow-up/Referrals: Ad Luke MD [Physician] - () Dougie Galaviz MD [Primary Care Provider] - <Zechariah Ramirez PA-C - Last Filed: 05/06/24 15:25> Time of Disposition: 20:50 <Zechariah Ramirez PA-C - Last Filed: 05/06/24 15:25> 20:50 <Erma Nicolas PA-C - Last Filed: 05/06/24 21:03>
--- NOTE | 2024-05-06 15:23 | ECG_ITS ---
Test Date: 2024-05-06 16:27:32 Measurements Intervals [place] Rate: 65 P: 67 [place]: 186 QRS: 52 QRSD: 86 T: 52 QT: 391 QTc: 407 Interpretive Statements SINUS RHYTHM No previous ECG available for comparison Electronically Signed On 05-07-2024 14:47:24 CEMENTER MACHINE JOINER by Jer Gaspar M.D.
[2024-05-06 15:44] LABS: Basophils Percent Auto 0.5 % (0.2-1.2); Eosinophils Absolute Auto 0.1 K/mm3 (0-0.3); Eosinophils Percent Auto 0.6 % (0-4.4); Hematocrit 42.2 % (42.0-52.0); Hemoglobin 14.2 g/dL (14.0-18.0); Immature Granulocyte Absolute 0.04 K/mm3 (0.00-0.031); Immature Granulocyte Percent A 0.5 % (0-0.5); Immature Platelet Fraction Pct 5.2 % (0.9-11.2); Lymphocytes Absolute Auto 1.34 K/mm3 (0.9-3.2); Lymphocytes Percent Auto 15.5 % (18.3-44.2); Mean Corpuscular HGB Conc 33.6 g/dl (32-36); Mean Corpuscular Hemoglobin 30.9 pg (26-34); Mean Corpuscular Volume 91.7 fl (80-100); Mean Platelet Volume 10.9 fl (7.4-10.4); Monocytes Absolute Auto 0.5 K/mm3 (0.1-0.6); Monocytes Percent Auto 5.7 % (2.6-8.5); Neutrophils Absolute Auto 6.7 K/mm3 (1.3-6.7); Neutrophils Percent Auto 77.2 % (45.5-73.1); Platelet Count Result 134 k/mm3 (150-375); Red Cell Distribution Width 12.1 % (11.5-14.5); White Blood Count 8.7 K/mm3 (4.5-10.0)
[2024-05-06 15:53] LABS: Lactic Acid Reflex 1.6 mmol/L (0.7-2.0)
[2024-05-06 15:54] LABS: Alanine Aminotransferase 16 U/L (6-50); Albumin Level 4.1 g/dL (3.5-5.1); Alkaline Phosphatase 120 U/L (38-126); Anion Gap 2 mmol/L (4-12); Aspartate Amino Transferase 29 U/L (17-59); Blood Urea Nitrogen 14 mg/dL (9-20); Calcium 8.8 mg/dL (8.4-10.2); Carbon Dioxide 36 mmol/L (22-30); Chloride 99 mmol/L (98-107); Estimated CRCL calculation 42 ml/min; Estimated Glomerular Filt Rate 47; Glucose 119 mg/dL (65-110); Lipase 56 U/L (23-300); Magnesium 1.6 mg/dL (1.6-2.3); Phosphorus 3.1 mg/dL (2.5-4.5); Potassium 4.2 mmol/L (3.4-5.0); Sodium 137 mmol/L (137-145)
[2024-05-06 17:10] VITALS: BP 119/81; PULSE 67; RESP 16; O2SAT 98
[2024-05-06] MEDS: SODIUM CHLORIDE 0.9% IV 1,000 ML 999 ML IV CONT ×2 (17:56→19:40)
[2024-05-06] MEDS: MAGNESIUM SULF 2 GM/WATER 50ML 2 GM/50 ML BAG IVPB (17:58)
[2024-05-06] MEDS: ONDANSETRON INJ 4 MG/2 ML VIAL IV PUSH (18:00)
[2024-05-06] MEDS: BELLADONNA ALK/PHENOB ELIX 10 ML, MAG HYDROX/ALUMINUM HYD/SIMETH 30 ML, LIDOCAINE HCL 2... PO (18:00)
[2024-05-06 18:11] LABS: Troponin I < 0.012 ng/mL (0.000-0.034)
--- NOTE | 2024-05-06 20:36 | PC.NURSE ---
Patient states he is unable to urinate. States if we want urine we are going to need to straight cath him and he's ready for it. PA aware
[2024-05-06 21:15] VITALS: PULSE 69; RESP 19; O2SAT 100
--- NOTE | 2024-05-06 23:58 | PC.NURSE ---
pt continually coming up to intake desk and demanding home medications . This rn spoke with charge nurse and was notified that edp carmencita already spoke with this patient and denied his pain medication request. Pt was requesting morphine ir, muscle spasm medication and buspar.
== END 2024-05-06 21:16 | disposition home or self-care (01) ==
PROVIDERS: Physician Assistant; Emergency Provider Physician Assistant; PCP Family Medicine Adolescent Medicine
DX: K29.70 Gastritis, unspecified, without bleeding (principal); R91.1 Solitary pulmonary nodule; I25.2 Old myocardial infarction; B19.20 Unspecified viral hepatitis C without hepatic coma; K21.9 Gastro-esophageal reflux disease without esophagitis; Z86.711 Personal history of pulmonary embolism; Z86.718 Personal history of other venous thrombosis and embolism; Z86.2 Personal history of diseases of the blood and blood-forming organs and certain disorders involving the immune mechanism; Z90.49 Acquired absence of other specified parts of digestive tract; F17.210 Nicotine dependence, cigarettes, uncomplicated; Z79.899 Other long term (current) drug therapy; Z79.01 Long term (current) use of anticoagulants
CPT/HCPCS: 36415; 71045; 74177; 80053; 83605; 83690; 83735; 84100; 84484; 85025; 85055; 93005; 96365; 96375; 99284; A9270; J2405; J3475; J7030; Q9967

== ENCOUNTER 2024-10-28 11:50 | Outpatient (CLI) | payer MEDICARE, MEDICAID, SELFPAY ==
--- OUTSIDE RECORDS SUMMARY | 2024-10-28 12:06 | XMS_ITS | Encounter Summary ---
Author Organization [facility] Address [address] [place] [id number] Care Team Providers Care Private Mortgage Banker Safe Name Role Phone Dougie Galaviz MD Primary Care Prov ider Reason for Visit * Reason Comments Annual Exam Encounter Details Date Type Department Care Team (Late st Contact Info) Description 10/28/2024 11:00 AM CDT Office Visit [facility] Cardiology [address] [place] [address] Josephine Larson NP [address] [place] [address] Lipid screening (Primary Dx); Hypokalemia Social History Tobacco Use Types Packs/Day Years Used Date Smoking Tobacco: Former Cigarettes Smokeless Tobacco: Never Tobacco Cessation:Counseling Given: Not Answered Alcohol Use Standard Drinks/Week Comments Yes 0 (1 standard drink = 0.6 oz pur e alcohol) [employer] Hard Lemonade AUDIT-C Answer Date Recorded Frequency of Alcohol Consumption 4 or more times a week 04/12/2019 Average Number of Drinks 10 or more 019 Frequency of Binge Drinking Not on file 03/29 Personal Safety Answer Date Recorded Getting School Help Needed Not on file 06/10 Sex and Gender Information Value Date Recorded Sex Assigned at Not on file 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 Gender Identity Not on file Sexual Orientation Not on file documented as of this encounter Last Filed Vital Signs Vital Sign Reading Time Taken Comments Blood Pressure 120/68 10/28/2024 11:12 AM CDT Pulse 75 10/28/2024 11:12 AM CDT Temperature - - Respiratory Rate - - Oxygen Saturation 99% 10/28/2024 11:12 AM CDT Inhaled Oxygen Concentration - - Weight 71.7 kg (158 lb) 10/28/2024 11:12 AM CDT Height 170.2 cm (5' 7) 10/28/2024 11:12 AM CDT Body Mass Index 24.75 10/28/2024 11:12 AM CDT documented in this encounter Plan of Treatment Scheduled Orders Name Type Priority Associated Diagnoses Orde r Schedule Basic metabolic panel Lab Routine Hypokalemia Expected: 11/04/2024 (Approximate), Expires: 10/28/2025 documented as of this encounter Procedures Procedure Name Priority Date/Time Associated Diagnosis Comments POCT LIPID PANEL Routine 10/28/2024 11:2 0 AM CDT Lipid screening documented in this encounter Results * (ABNORMAL) POCT lipid panel (10/28/2024 11:20 AM CDT) Cholesterol, POC 214 <200 MG/DL HDL, POC 54 >=40 mg/dL Triglycerides, POC 100 <=149 mg/dL LDL Cholesterol POC 140(A) <=129 mg/dL Chol/HDL Ratio, POC 2.6 NONE Non-HDL Cholesterol, POC 160 NONE mg/dL Cholesterol Total, POC 214(A) 30 - 199 mg/dL Capillary blood 10/28/2024 1 1:20 AM CDT Josephine Larson BUSINESS SUPPORT POINT OF CARE TEST ORDERA BLES Final Result documented in this encounter Visit Diagnoses Diagnosis Lipid screening- Primary Screening for lipoid disorders Hypokalemia Hypopotassemia documented in this encounter Discontinued Medications Medication Sig Discontinue Reason Start Date End Da te potassium chloride ER 20 mEq CR tabletIndications:Hypo kalemia Take 1 tablet by mouth twice daily No longer taking - Do not display on AVS 07/29/2024 10/28/2024 documented as of this encounter Care Teams Private Mortgage Banker Safe Relationship Specialty Start Date End Date Dougie Galaviz MD [address] [place] [address] PCP - General Family Medicine 09/01/17 documented as of this encounter
--- OUTSIDE RECORDS SUMMARY | 2024-10-28 12:06 | XMS_ITS | Clinical Summary ---
Author Organization [facility] [place] [facility] Address [address] [place] [address] Care Team Providers Care Conveyor Console Operator Name Role Phone Dougie Galaviz MD Primary Care Provider [phone] Social History Tobacco Use Types Packs/Day Years Used Date Smoking Tobacco: Never Assessed Sex and Gender Information Value Date Recorded Sex Assigned at Not on file Legal Sex Male 11:14 AM CDT Gender Identity Not on file Sexual Orientation Not on file Plan of Treatment Health Maintenance Due Date Last Done Comments DTAP/TDAP/TD VACCINES (1 - Tdap) 12/13/1979 COLORECTAL SCREENING 2005 Colorectal Cancer Screening 2005 FIT-DNA Q 3 years 2005 FIT/FOBT Q 1 year 2005 Flex Sig/CT Colonography Q 5 years 2005 ZOSTER VACCINE (1 of 2) 2010 INFLUENZA VACCINE (#1) 2023 RSV VACCINE (60+ or ) (1 - 1-dose 75+ series) 12/13/2035 Care Teams Conveyor Console Operator Relationship Specialty Start Date End Date Dougie Galaviz MD PCP - General Family Practice 02/20/20
--- OUTSIDE RECORDS SUMMARY | 2024-10-28 12:06 | XMS_ITS | Clinical Summary ---
Author Organization [facility] [place] [address] Address [address] [place] [address] Care Team Providers Care Community Service Manager Name Role Phone Dougie Galaviz MD Primary Care Prov ider Allergies No known active allergies Medications methadone (DOLOPHINE) 10 mg tablet Take 1 tablet by mouth 5 times daily as needed 0 03/28/[address] (PROTONIX) 40 mg EC tablet Take 1 tablet (40 mg total) by mouth every 12 (twelve) hours 04/08/20 19 Active metoprolol XL (TOPROL-XL) 25 mg extended release tabletIndications: Pulmonary hypertension (HCC),Obstructive sleep apnea Take 1 tablet (25 mg total) by mouth daily 30 tablet 11 02/13/20 20 Active promethazine (PHENERGAN) 25 mg tablet Take 1 tablet (25 mg total) by mouth as needed for nausea or vomiting Active busPIRone (BUSPAR) 15 mg tablet Take 1 tablet (15 mg total) by mouth 4 (four) times a day 07/09/19 22 Active Advair Diskus 100-50 mcg/dose diskus inhaler Inhale 1 puff 2 (two) times a day 01/15/20 22 Active albuterol HFA (PROVENTIL HFA,VENTOLIN HFA,PROAIR HFA) 90 mcg/actuation inhaler Inhale 2 puffs every 4 (four) hours as needed 12/17/19 22 Active vitamin B complex capsule Take 1 capsule by mouth daily Active carBAMazepine (TEGretol) 200 mg tablet Take 2 tablets (400 mg total) by mouth 2 (two) times a day 02/07/20 23 Active hydrOXYzine (ATARAX) 25 mg tablet Take 1 tablet (25 mg total) by mouth 3 (three) times a day 08/09/19 24 Active morphine ER (MS CONTIN) 60 mg 12 hr tablet Take 1 tablet (60 mg total) by mouth every 12 (twelve) hours 08/17/19 24 Active aspirin 81 mg enteric coated tablet Take 1 tablet (81 mg total) by mouth daily 30 tablet 11 10/10/19 25 2025 Active furosemide (LASIX) 20 mg tabletIndications: Pulmonary hypertension (HCC) Take 1 tablet by mouth twice daily 180 tablet 10/23/19 25 Active rivaroxaban (XARELTO) 10 mg tabletIndications: Chronic anticoagulation Take 1 tablet (10 mg total) by mouth daily 90 tablet 1 08/28/19 21 2024 Discontinued(N o longer taking - Do not display on AVS) furosemide (LASIX) 20 mg tabletIndications: Pulmonary hypertension (HCC) Take 1 tablet by mouth twice daily 180 tablet 3 10/27/19 24 2024 Discontinued potassium chloride ER 20 mEq CR tabletIndications: Hypokalemia Take 1 tablet by mouth twice daily 60 tablet 07/30/19 25 2024 Discontinued(N o longer taking - Do not display on AVS) Active Problems Problem Noted Date Diagnosed Date Hypokalemia 02/08/2023 Hypotension 09/11/2020 Acromegaly 09/11/2020 Atrial flutter 04/12/2019 Obstructive sleep apnea 04/12/2019 History of pulmonary embolism 04/12/2019 Tobacco abuse 04/12/2019 Alcohol use 04/12/2019 Pulmonary hypertension 04/12/2019 Chronic anticoagulation 04/12/2019 Hypersomnolence 04/12/2019 Encounters Date Type Department Care Team Description 10/28/2024 11:00 AM CDT Office Visit [facility] Cardiology [address] [place] [address] Josephine Larson NP Lipid screening (Primary Dx); Hypokalemia 10/09/2024 Telephone [facility] Cardiology [address] [place] [address] Felix Fonseca MD Med Management from Last 3 Months Surgical History Surgery Date Site/Laterality Comments TIBIA FRACTURE SURGERY Medical History Medical History Date Comments Heart murmur Anxiety and depression Family History Medical History Relation Name Comments Heart disease Father Relation Name Status Comments Father (Age 68) Mother (Age 92) Social History Tobacco Use Types Packs/Day Years Used Date Smoking Tobacco: Former Cigarettes Smokeless Tobacco: Never Tobacco Cessation:Counseling Given: Not Answered Alcohol Use Standard Drinks/Week Comments Yes 0 (1 standard drink = 0.6 oz pur e alcohol) Lyndsay Hard Lemonade AUDIT-C Answer Date Recorded Frequency [...] on file 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 Gender Identity Not on file Sexual Orientation Not on file Obstetrics History Last Filed Vital Signs Vital Sign Reading [...] Mass Index 24.75 10/28/2024 11:12 AM CDT Plan of Treatment Health Maintenance Due Date Last Done Comments Colon Cancer Screening-Colonoscopy 1960 Depression Screening 1960 Hepatitis C Screening 1960 Prostate Cancer Screening-PSA 1960 DTaP/Tdap/Td Vaccine (1 - Tdap) 12/13/1971 Hepatitis B Screening 1978 Regular Well Visit/Exam 18-64 1978 Pneumococcal vaccine <65 (1 of 2 - PCV) 12/13/1979 Zoster Vaccine (1 of 2) 2010 Influenza Vaccine (Season Ended) 2025 02/25/20 17, 02/26/2016 Procedures Procedure Name Priority Date/Time Associated Diagnosis Comments POCT LIPID PANEL Routine 10/28/2024 11:2 0 AM CDT Lipid screening from Last 3 Months Results * (ABNORMAL) POCT lipid panel (10/28/2024 11:20 AM CDT) Cholesterol, POC 214 <200 MG/DL HDL, POC 54 >=40 mg/dL Triglycerides, POC 100 <=149 mg/dL LDL Cholesterol POC 140(A) <=129 mg/dL Chol/HDL Ratio, POC 2.6 NONE Non-HDL Cholesterol, POC 160 NONE mg/dL Cholesterol Total, POC 214(A) 30 - 199 mg/dL Capillary blood 10/28/2024 1 1:20 AM CDT Josephine Larson NP POINT OF CARE TEST ORDERA BLES Final Result from Last 3 Months Insurance [id number] MEDICARE MEDICARE [facility] Care Teams Community Service Manager Relationship Specialty Start Date End Date Dougie Galaviz MD [address] [place] [address] PCP - General Family Medicine 09/01/17
--- OUTSIDE RECORDS SUMMARY | 2024-10-28 12:06 | XMS_ITS | Referral Summary ---
Author Organization [facility] [place] [address] [place] [address] [address] [place] [address] Care Team Providers Care Substation Operator Name Role Phone Dougie Galaviz MD Primary Care Prov ider Encounters Date Type Department Care Team Description 10/28/2024 11:00 AM CDT Office Visit [facility] Cardiology [address] [place] [address] Josephine Larson NP Lipid screening (Primary Dx); Hypokalemia 10/09/[address] [facility] Cardiology [address] [place] [address] Felix Fonseca MD Med Management from Last 3 Months Allergies No known active allergies Medications methadone [...] hypertension 04/12/2019 Chronic anticoagulation 04/12/2019 Hypersomnolence 04/12/2019 Social History Tobacco Use Types Packs/Day Years Used Date Smoking Tobacco: Former Cigarettes Smokeless Tobacco: Never Tobacco Cessation:Counseling Given: Not Answered Alcohol Use Standard Drinks/Week Comments Yes 0 (1 standard drink = 0.6 oz pur e alcohol) Lyndsay Cast AUDIT-C Answer Date Recorded Frequency of Alcohol Consumption 4 or more times a week 04/12/2019 Average Number of Drinks 10 or more 019 Frequency of Binge Drinking Not on file 03/29 Personal Safety Answer Date Recorded Getting School Help Needed Not on file 06/10 Sex and Gender Information Value Date Recorded Sex Assigned at Not on file 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
--- OUTSIDE RECORDS SUMMARY | 2024-10-28 12:06 | XMS_ITS | Data Portability ---
Author Organization [place] - [facility] OFFICE Address [address] [place] [address] Care Team Providers Care Matcher Operator Name Role Phone CHARLES LYN Primary Care Provider Assessment No assessment recorded. Plan of Treatment Reminders Order Date Submit Date Provider Last Modified By Organization Details Last Modified Time Details Appointments None record ed. Lab None record ed. Referral None record ed. Procedures None record ed. Surgeries None record ed. Imaging None record ed. Medication Orders None record ed. Patient TargetsNo targets recorded. Patient Instructions Encounter Date Encounter Id Patient Instructions Last Modified By Organization Details Last Modified Time 02/12/2019 [id number] Weight loss 20 pounds Exercise advised Low cholesterol diet advised Low sodium diet advised Not available 02/12/2019 10:24:44 Scribed by Carolin Sanchez PA-C Not available 02/12/2019 10:24:56 Reason for Referral None Reported. Results Created Date Observation Date Name Description Value Unit Range Abnormal Flag Note LastModifiedBy Organization Detail LastModifiedTime 01/23/20 19 01/22/2019 US, echoc ardio gram No observ ation record ed. [facility] (Imaging) [address] [place] [address] [address], [place], [address], 02/09/2019 18:21:16 01/24/20 19 01/23/2019 US, eduard vasquez sviviana [facility] mity No observ ation record ed. [email or web address] Not Available 2018 15:28:09 01/24/20 19 01/22/2019 XR, chest No observ ation record ed. [email or web address] Not Available 01/23 17:17:16 01/24/20 19 01/22/2019 CT, angio gram, chest , w/ contr ast No observ ation record ed. [email or web address] Not Available 2018 11:23:53 01/24/20 19 01/22/2019 korina thompson am No observ ation record ed. [email or web address] Not Available 2018 11:43:48 01/24/20 19 01/22/2019 , echoc ardio gram No observ ation record ed. [email or web address] Not Available 2018 15:29:54 01/30/20 19 01/22/2019 US, echoc ardio gram No observ ation record ed. [email or web address] Not Available 2018 09:43:18 03/05/2001/22/2019 , echoc ardio gram No observ ation record ed. [email or web address] Not Available 2018 12:36:24 Result Notes None recorded. Problems Name Problem SNOMED Code Status Onset Date Resolution Date Notes Provider Name and Address Organization Details Recorded Time Dyspnea 561235910 Active 2018 Hala Maddy null, [place] - [facility] 9 14:38:24 Acute pulmonary embolism 347549744 Active 2018 Hala Maddy [place], [place] - [facility] 9 14:38:40 Atrial flutter 0818961 Active 2018 Hala Maddy [place], [place] - [facility] 9 14:39:33 Acute non-ST segment elevation myocardial infarction 912131750 Active 2018 Hala Maddy [place], [place] - [facility] 9 14:40:10 Heart murmur 01296242 Active 2018 Hala Maddy [place], [place] - [facility] 9 14:42:54 Tobacco dependence syndrome 02522290 Active 2018 Hala Maddy [place], [place] - [facility] 9 14:43:10 Angiomatosis 034421920 Active 2018 Hala Maddy null, [place] - [facility] 9 14:43:33 Notes:increased alcohol cons umption Problem Notes None recorded. Medical Equipment None Reported. Allergies No known drug allergies Medications Name Sig Start Date Stop Date Status Note LastModified by Organization Details LastModified Time furosemide 40 mg tablet Take 1 tablet every day by oral route as directed for 30 days. active Not Available Not Available No t Available prednisone 10 mg tablet Take 1 tablet every day by oral route as directed for 25 days. 06/16 completed Not Available Not Available Not Available metoprolol succinate ER 100 mg tablet,exte nded release 24 hr TAKE 1 TABLET BY MOUTH IN THE MORNING WITH FOOD active Not Available Not Available No t Available sertraline 100 mg tablet Take 1 tablet every day by oral route as directed for 30 days. active Not Available Not Available No t Available morphine ER 30 mg tablet,exte nded release Take 1 tablet every day by oral route as directed for 30 days. active Not Available Not Available No t Available sulfamethox azole 800 mg-trimetho prim 160 mg tablet Take 1 tablet every day by oral route as directed for 10 days. 06/16 completed Not Available Not Available Not Available pantoprazol e 40 mg tablet,ezequiel yed release Take 1 tablet every day by oral route as directed for 30 days. active Not Available Not Available No t Available sertraline 25 mg tablet active Not Available Not Available Not Available folic acid 1 mg tablet Take 1 tablet every day by oral route as directed for 30 days. active Not Available Not Available No t Available ibuprofen 600 mg tablet Take 1 tablet every day by oral route as directed for 10 days. active Not Available Not Available No t Available fluticasone propionate 50 mcg/actuati on nasal spray,suspe nsion [place] 1 spray every day by nasal route as needed for 30 days. active Not Available Not Available No t Available Eliquis 5 mg tablet active Not Available Not Available No t Available Vitals Date Recorded Body height Body mass index (BMI) Body weight Heart rate Oxygen saturation Oxygen saturation in Arterial blood by Pulse oximetry Systolic blood pressure Diastolic blood pressure Provider Name and Address Organization Details Last Updated DateTime 9 170.18 cm 31.5 kg/m2 26011.0 7 g 69 /min 94 % 94 % 108 mm[Hg] 68 mm[Hg] Ragini [place] - [facility] 9 10:03:49 Social History None recorded. Functional Status Question Answer Note LastModified by Organization D etails LastModified Time What is your level of alcohol consumption? Heavy [id number] Information not available 03/31/2020 Mental Status None recorded. Family History Relationship Description Onset Age of this Age Resolved Age Notes LastModified by Organization Details LastModified Time Unspecified Relation Pulmonary embolism [email or web address] Not available 2018 15:33:14 Medical History Condition Response Myocardial Infarction Y Atrial Flutter Y Past Encounters Encounter ID Performer Location Encounter Start Date Encounter Closed Date Diagnosis/Indication Diagnosis SNOMED-CT Code Diagnosis ICD10 Code Diagnosis Note [id number] Mango Ramos MD [place] OFFICE [address] [place] [address] 02/12/2019 08:56:37 04/11/2019 08:41:48 Pulmonary embolism 05367644 I26.99 CTA Chest, w/contrast 01/22/19: 1. Extensive acute pulmonary emboli involving all lobes. 2. Airspace and groundglas s opacities in right middle lobe, consistent with infarct. 3. Enlargemen t of right atrium and right ventricle, consistent with right heart strain.Con tinue Eliquis 5mg BID. Paroxysmal atrial flutter 224326492 I48.92 Continue Eliquis, Metoprolol . Deep venou s thrombosis 790525313 I82.409 Had venous lower extremity US done in 01/23/19 showed Deep vein thrombosis involving left femoral vein. Will repeat doppler to evaluate. Swelling o f bilateral lower limbs 714286088 M79.89 continue Lasix, leg elevation. Tobacco de pendence syndrome 72556098 F17.200 Smoking cessation advised Health Concerns Section Related Observation LastModified by Organization Detai ls LastModified Time None Recorded Concern Status LastModified by Organization Details LastModified Time None Recorded Advance Directives Directive None Recorded Payers Insurance Date Sequence Insurance Name Policy Number Policy [place] Covered Member ID [place] Member ID Guarantor Name 04/06/2019 1 [facility] (MEDICAID HMO) [id number] Shantanu Melendrez [id number] Shantanu Melendrez Notes Date Note Type Note Provider Name and Address Organization Details Recorded Time 02/12/2019 text/html 02/12/19 CC :Dyspnea , right sided chest pain. 58 years-old White male with h/o Heart murmur , A flutter, PE, DVT, Active tobacco dependence (1 pack per day x 25 yrs), increased alcohol consumption (6-8 pack per day of beer), angiomatosis , scoliosis, is here for follow up. He was in [facility] in 01/22/19 because of Acute pulmonary embolism and new onset acute atrial flutter with rapid ventricular response. He was started on Eliquis 10mg BID x3 days, now on 5mg BID and Metoprolol xl 100mg daily. He is not active, is on disability due to scoliosis/back pain. He has cut back on smoking to 1/2 ppd. Reports leg swelling, was placed on lasix by PCP, with improvement, ran out of Rx, and swelling has returned.He reports fatigue; uncertain if he snores. No chest pain. No shortness of breath at rest. No dyspnea on exertion. No orthopnea. No PND. No dizziness. No palpitation. No syncope or near syncope. No leg swelling. No nausea and vomiting. Had venous lower extremity US done in 01/23/19 showed Deep vein thrombosis involving left femoral vein. *Had ECHO done in 01/22/19 showed normal LV systolic function, EF 60-65% , Right ventricular systolic function is reduced . Had ECHO done in 01/22/19 showed EF 60-65% , Right ventriclar chamber dimension is moderately enlarged. Right ventricular systolic function is reduced , Dilated inferior vena cava with <50% collapse upon inspiration consistent with elevated right atrial pressure, 12 mmHf . Results from this or previous visits: CBC 01/22/2019 WBC 7.8 RBC 4.31 HGB 15.2 HCT 44.9 PLT 123 PT 17.1 INR 1.4 BMP 01/23/2019 NA 128 K 3.9 CH 84 CO2 39 GL 87 BUN 16 CR 0.60 CA 8.4 MG 1.8 LIPID 01/23/2019 CH 113 TR 85 LDL 84 HDL 25 CTA Chest, w/contrast 01/22/19: 1. Extensive acute pulmonary emboli involving all lobes. 2. Airspace and groundglass opacities in right middle lobe, consistent with infarct. 3. Enlargement of right atrium and right ventricle, consistent with right heart strain. 4. I discussed this case with Dr. Garcia on 01/22/19 at 14:10. Results from this visit, or from the past:BMP 01/23/2019 NA 128 K 3.9 CH 84 CO2 39 GL 87 BUN 16 CR 0.60 CA 8.4 MG 1.8LIPID 01/23/2019 CH 113 TR 85 LDL 84 HDL 25CBC 01/22/2019 WBC 7.8 RBC 4.31 HGB 15.2 HCT 44.9 PLT 123PT 17.1 INR 1.4 EKG 01/22/19: Atrial flutter/Tachycardia with rapid ventricular response. Ventricular premature complexes. Incomplete RBBB. Delayed precordial R/S transition. Borderline ST-T wave abnormality-Ant/Lat leads. Abnormal ECG. 01/22/19 ECHO: Left ventricular chamber dimension is normal. There is no increased left ventricular wall thickness. Left ventricular systolic function is normal, estimated at 60-65%. Flattening of the septum in systole consistent with right ventricular pressure overload. Right ventricular chamber dimension is moderately enlarged. Right ventricular systolic function is reduced. Right atrial chamber dimension is mildly enlarged. Severe pulmonary hypertension, estimated pulmonary arterial systolic pressure is 68 mmHg. Diastolic inferior vena cava with < 50% collapse upon inspiration consistent with elevated right atrial pressure,12 mmHg. Technically difficult study with limited views. US Venous, Lower EXT, BRIGIDA 01/23/19: Deep vein thrombosis involving left femoral vein. cf 01/24/19 CTA Chest, w/contrast 01/22/19 1. Extensive acute pulmonary emboli involving all lobes. 2. Airspace and groundglass opacities in right middle lobe, consistent with infarct. 3. Enlargement of right atrium and right ventricle, consistent with right heart strain. 4. I discussed this case with Dr. Garcia on 01/22/19 at 14:10. 01/22/19 CXR: Multiple displaced rib fracture deformities on the right. Very prominent dextroscoliosis of the thoracic spine. Bilateral hyperinflation, no active pulmonary disease. Stacy booker [place] - [facility] 04/11/2019 08:41:47
[2024-10-28 12:16] LABS: Anion Gap 7 mmol/L (4-12); Blood Urea Nitrogen 13 mg/dL (9-20); Calcium 8.8 mg/dL (8.4-10.2); Carbon Dioxide 32 mmol/L (22-30); Chloride 100 mmol/L (98-107); Estimated Glomerular Filt Rate 56; Glucose 124 mg/dL (65-110); Potassium 3.4 mmol/L (3.4-5.0); Sodium 139 mmol/L (137-145)
== END 2024-10-28 11:51 | disposition home or self-care (01) ==
PROVIDERS: PCP Family Medicine Adolescent Medicine; Visit Provider Nurse Practitioner Adult Health
DX: E87.6 Hypokalemia (principal)
CPT/HCPCS: 36415; 80048